=== PATIENT | male | born 1955 | race Caucasian/White ===

== ENCOUNTER 2019-08-04 03:10 | Inpatient (IN) ==
[2019-08-04 04:00] LABS: Basophils # (auto) 0.05 K/uL (0-0.2); Basophils % (auto) 0.5 %; Eosinophils # (auto) 0.32 K/uL (0-0.5); Eosinophils % (auto) 3.1 %; Hematocrit (blood only) 43.9 % (42-52); Hemoglobin 14.9 g/dL (14.0-18.0); Immature Granulocytes # (auto) 0.03 K/uL (0.00-0.02); Immature Granulocytes % (auto) 0.3 %; Lymphocytes # (auto) 2.07 K/uL (1.2-3.4); Lymphocytes % (auto) 19.8 %; Mean Corpuscular Hgb Conc 33.9 g/dL (32-36); Mean Corpuscular Volume 82.5 fL (80-100); Monocytes # (auto) 1.01 K/uL (0.11-0.59); Monocytes % (auto) 9.7 %; Neutrophils # (auto) 6.97 K/uL (1.4-6.5); Neutrophils % (auto) 66.6 %; Platelet Count 207 K/uL (130-400); RDW Coefficient of Variation 14.2 % (11.5-14.5); Red Blood Count 5.32 M/uL (4.7-6.1); White Blood Count 10.45 K/uL (4.8-10.8)
[2019-08-04 04:17] LABS: Alanine Aminotransferase 15 U/L (12-78); Albumin Level 3.2 gm/dl (3.4-5.0); Aspartate Aminotransferase 9 U/L (15-37); BUN Creatinine Ratio 19.9 (10-20); Blood Urea Nitrogen 18 mg/dl (7-18); Calcium 8.6 mg/dl (8.5-10.1); Carbon Dioxide 26 mmol/L (21-32); Chloride 108 mmol/L (98-107); Est GFR (Non-African American) 90.6; Glucose 126 mg/dl (70-99); Potassium 3.9 mmol/L (3.5-5.1); Sodium 142 mmol/L (136-145)
[2019-08-04 04:22] LABS: Albumin Globulin Ratio 0.9 (0.9-2); Alkaline Phosphatase 60 U/L (45-117); Bilirubin,Total 0.4 mg/dl (0.2-1); Globulin 3.6 gm/dl (2.5-4.0); Total Protein 6.8 gm/dl (6.4-8.2); Troponin I 0.018 ng/ml (0-0.045)
[2019-08-04] MEDS: METOPROLOL TARTRATE 25 MG TAB PO SCH ×2 (05:55→21:36)
--- NOTE | 2019-08-04 06:14 | History & Physical Report ---
Date of Service August 04, 2019 Assessment & Plan (1) Seizure: Possible new onset seizure hx traumatic brain injury hx ICH sp surgery hypertension, BP on the lower side A. fib, rate initially high upon arrival at the ER Currently controlled on Eliquis aortic stenosis as per family. Some congestion on CXR Hyperglycemia rule out DM OBS PCU Seizure precautions EEG, MRI of the brain for possible new onset seizure work-up Neurology consult RE possible new onset seizures Lopressor from once to twice daily dosing for sustained rate control Check hemoglobin A1c DVT prophylaxis Eliquis Full code Patient's family requesting updates from providers. Mr.Stephen Carrillo (son-in-law), contact #[phone]. Case discussed with Dr. Antonio (neurologist on-call). He recommends initiation of Keppra for AED prophylaxis. History of Present Illness Chief Complaint: Stiffness, possible seizures Primary Care Provider: NO PCP History obtained from patient, family, and records. Limited history from patient secondary to cognitive impairment. Medical history significant for traumatic brain injury, hx ICH sp surgery, hypertension, A. fib on Eliquis, aortic stenosis. Patient is a resident of [place] visiting family in [place], [place] this week. Patient and will be relocating to [facility] next month. Last November 2018 patient sustained traumatic intracranial hemorrhage requiring 2 operations (November and April) at [facility]. Right-sided weakness and cognitive impairment post injury. During confinement, patient developed rapid A. fib. Was also found to have aortic stenosis on 2D echo. Patient subsequently discharged to rehab on Eliquis for A. fib. Patient was also temporarily on Dilantin seizure prophylaxis until April 2019. Early this morning patient went to the bathroom. Patient's heard a squealing noise and later found patient to be stiff, as if he had seizures. Urinary incontinence noted. No tongue biting noted. Patient was at usual cognitive state as per family. Patient brought to the ER for evaluation. 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, [employer] Allergies Allergy/AdvReac Type Severity Reaction Status Date / Time No Known Allergies Allergy Unverified 08/04/19 03:44 Home Medications Home Medications Medication Instructions Recorded Confirmed Type Bladder Medication 1 dose PO HS 08/04/19 08/04/19 History amlodipine 5 mg PO BID 08/04/19 08/04/19 History apixaban [Eliquis] 5 mg PO BID 08/04/19 08/04/19 History aspirin 81 mg PO DAILY 08/04/19 08/04/19 History carbidopa-levodopa [Sinemet] 1 tab PO DIRECTED 08/04/19 08/04/19 History metoprolol tartrate 12.5 mg PO DAILY 08/04/19 08/04/19 History Past Med/Surg History Medical History Aortic stenosis Atrial fibrillation Hypertension TBI (traumatic brain injury) Family History Other No significant family history Social History Preferred Language: Bengali Communication Ability: Effective Public Housing Manager Required: No Beliefs That Will Affect Care: Pentecostalism Pentecostalism Beliefs: Mennonite marital status: Current Living Situation: Spouse Other Information That Helps Us Care for You: No Feels Safe at Home: Yes Safety Concerns: Feels Safe At This Time Smoking Status: Never smoker Hx Alcohol Use: No Hx Substance Use: No Review of Systems Review of Systems: Could not be reliably obtained Physical Exam Physical Exam: GENERAL: Lethargic, obese, looks younger than stated age, no respiratory distress SKIN: Normal color, warm HEENT: [place] palpebral conjunctivae, no ptosis, dry buccal mucosa, nasal cannula in place NECK : Supple, short neck, no tenderness CHEST : Decreased breath sounds , no tenderness HEART : Irregular, systolic murmur ABDOMEN: Some distention, nontender EXTREMITIES : Minimal LE swelling/tenderness, no other conspicuous deformities noted NEUROLOGIC : Lethargic, follows some commands, no facial asymmetry, chronic RUE paresis Results & Data Vital Signs (Past 12 Hours) Vital Signs Temp Pulse Pulse Resp BP BP Pulse Ox 08/04/19 04:28 108 H 18 101/71 94 08/04/19 03:04 36.6 C 127 H 18 127/103 H 87 L Laboratory Results Laboratory Results WBC 10.45 K/uL (4.8-10.8) 08/04/19 03:49 RBC 5.32 M/uL (4.7-6.1) 08/04/19 03:49 Hgb 14.9 g/dL (14.0-18.0) 08/04/19 03:49 Hct 43.9 % (42-52) 08/04/19 03:49 MCV 82.5 fL (80-100) 08/04/19 03:49 MCH 28.0 pg (25-34) 08/04/19 03:49 MCHC 33.9 g/dL (32-36) 08/04/19 03:49 RDW Std Deviation 43.0 fL (36.4-46.3) 08/04/19 03:49 RDW Coeff of Qing 14.2 % (11.5-14.5) 08/04/19 03:49 Plt Count 207 K/uL (130-400) 08/04/19 03:49 MPV 12.0 fL (7.4-10.4) H 08/04/19 03:49 Immature Gran % (Auto) 0.3 % 08/04/19 03:49 Neut % (Auto) 66.6 % 08/04/19 03:49 Lymph % (Auto) 19.8 % 08/04/19 03:49 Sebastian % (Auto) 9.7 % 08/04/19 03:49 Eos % (Auto) 3.1 % 08/04/19 03:49 Baso % (Auto) 0.5 % 08/04/19 03:49 Immature Gran # (Auto) 0.03 K/uL (0.00-0.02) H 08/04/19 03:49 Neut # (Auto) 6.97 K/uL (1.4-6.5) H 08/04/19 03:49 Lymph # (Auto) 2.07 K/uL (1.2-3.4) 08/04/19 03:49 Sebastian # (Auto) 1.01 K/uL (0.11-0.59) H 08/04/19 03:49 Eos # (Auto) 0.32 K/uL (0-0.5) 08/04/19 03:49 Baso # (Auto) 0.05 K/uL (0-0.2) 08/04/19 03:49 Sodium 142 mmol/L (136-145) 08/04/19 03:49 Potassium 3.9 mmol/L (3.5-5.1) 08/04/19 03:49 Chloride 108 mmol/L (98-107) H 08/04/19 03:49 Carbon Dioxide 26 mmol/L (21-32) 08/04/19 03:49 Anion Gap 8.0 (3-11) 08/04/19 03:49 BUN 18 mg/dl (7-18) 08/04/19 03:49 Creatinine 0.90 mg/dl (0.6-1.4) 08/04/19 03:49 Est Cr Clr Drug Dosing Not Reportable 08/04/19 03:49 Est GFR ( Amer) 105.0 08/04/19 03:49 Est GFR (Non-Af Amer) 90.6 08/04/19 03:49 BUN/Creatinine Ratio 19.9 (10-20) 08/04/19 03:49 Glucose 126 mg/dl (70-99) H 08/04/19 03:49 POC Glucose 123 (70-99) H 08/04/19 03:21 Calcium 8.6 mg/dl (8.5-10.1) 08/04/19 03:49 Total Bilirubin 0.4 mg/dl (0.2-1) 08/04/19 03:49 AST 9 U/L (15-37) L 08/04/19 03:49 ALT 15 U/L (12-78) 08/04/19 03:49 Alkaline Phosphatase 60 U/L (45-117) 08/04/19 03:49 Troponin I 0.018 ng/ml (0-0.045) 08/04/19 03:49 NT-Pro-B Natriuret Pep Cancelled 08/04/19 03:49 Total Protein 6.8 gm/dl (6.4-8.2) 08/04/19 03:49 Albumin 3.2 gm/dl (3.4-5.0) L 08/04/19 03:49 Globulin 3.6 gm/dl (2.5-4.0) 08/04/19 03:49 Albumin/Globulin Ratio 0.9 (0.9-2) 08/04/19 03:[address] head initial read: Status post left craniectomy. Large area of cystic encephalomalacia left frontal lobe with ex vacuo dilatation of the left ventricle. No acute intracranial hemorrhage, midline shift or acute infarct. Low-density in the bilateral periventricular white matter is nonspecific but probably represents small vessel ischemic disease. Chest x-ray as per my interpretation cardiomegaly, congestion EKG as per my interpretation : Rate 140, A. fib, LAD, LAFB, LBBB.
[2019-08-04 06:22] LABS: Magnesium 2.1 mg/dl (1.8-2.4); Thyroid Stimulating Hormone 2.49 uIu/ml (0.300-4.500)
[2019-08-04 06:25] LABS: Estimated Average Glucose 117 mg/dl; Hemoglobin A1C 5.7 % (4.5-5.6)
--- NOTE | 2019-08-04 06:25 | Emergency Department Note ---
Entered by Timoteo Nicholson acting as a scribe for History of Present Illness General Chief complaint: Altered Mental Status Stated complaint: ALTERED MENTAL STATUS Time Seen by Provider: 08/04/19 03:24 Source: family (, son-in-law) History of Present Illness Onset (ago): day(s) (this morning) Location: head Pain Consistency: + constant Quality: + other (AMS) Associated symptoms: + other (Positive for moaning loadly, being stiff, foaming at the mouth, a rigid neck, and slow breathing.) The patient is a 63 year old male who presents to the emergency department with complaints of constant AMS beginning this morning. Per , the patient has a history of a traumatic brain injury and is nonverbal. She states that the patient was acting normally before going to bed. She notes that the patient woke up this morning and used the urinal in bed. She reports that about 20 minutes later, she awoke to the patient moaning loudly. She states that the patient seemed to be stiff and foaming at the mouth at that time. She notes that the patient also had a rigid neck. Per son-in-law, the patients breathing was slow following the episode. Per , the patient has a history of atrial fibrillation but does not have a history of seizures. She reports that the patient takes Eliquis and aspirin. Home Medications Home Medications Medication Instructions Recorded Confirmed Type Bladder Medication 1 dose PO HS 08/04/19 08/04/19 History amlodipine 5 mg PO BID 08/04/19 08/04/19 History apixaban [Eliquis] 5 mg PO BID 08/04/19 08/04/19 History aspirin 81 mg PO DAILY 08/04/19 08/04/19 History carbidopa-levodopa [Sinemet] 1 tab PO DIRECTED 08/04/19 08/04/19 History metoprolol tartrate 12.5 mg PO DAILY 08/04/19 08/04/19 History Allergies Allergy/AdvReac Type Severity Reaction Status Date / Time No Known Allergies Allergy Unverified 08/04/19 03:44 Past Med/Surg History Medical History Aortic stenosis Atrial fibrillation Hypertension TBI (traumatic brain injury) Family History Other No significant family history Social History Preferred Language: [place] Communication Ability: Effective Armature Winder Required: No Beliefs That Will Affect Care: Rastafari Rastafari Beliefs: Mennonite marital status: Current Living Situation: Spouse Other Information That Helps Us Care for You: No Feels Safe at Home: Yes Safety Concerns: Feels Safe At This Time Smoking Status: Never smoker Hx Alcohol Use: No Hx Substance Use: No Review of Systems See HPI for pertinent positives & negatives. and A total of 10 systems reviewed and were otherwise negative Physical Exam Vital Signs Vital Signs - 24 hr 08/04/19 17:00 08/04/19 20:00 08/05/19 00:00 Temperature 36.8 C 36.6 C 36.5 C Pulse Rate 102 H 79 76 Pulse Rate from SpO2 Sensor 81 76 Respiratory Rate 27 H 15 15 Respiratory Effort / Characteristics Respiratory Depth Respiratory Pattern Blood Pressure 145/92 H 124/92 120/86 Blood Pressure Mean 109 102 97 Pulse Oximetry 95 98 98 Oxygen Delivery Method Room Air Nasal Cannula Oxymask Oxygen Flow Rate 2 2 08/05/19 04:00 08/05/19 05:00 08/05/19 08:00 Temperature 36.7 C Pulse Rate 88 78 Pulse Rate from SpO2 Sensor 89 73 Respiratory Rate 17 16 Respiratory Effort / Characteristics Non-Labored Spontaneous Respiratory Depth Normal Respiratory Pattern Regular Blood Pressure 114/77 116/79 Blood Pressure Mean 89 91 Pulse Oximetry 97 99 Oxygen Delivery Method Oxymask Oxymask Room Air Oxygen Flow Rate 2 2 08/05/19 08:29 Temperature 36.4 C L Pulse Rate 96 H Pulse Rate from SpO2 Sensor Respiratory Rate 24 Respiratory Effort / Characteristics Respiratory Depth Respiratory Pattern Blood Pressure 114/83 Blood Pressure Mean 93 Pulse Oximetry 98 Oxygen Delivery Method Room Air Oxygen Flow Rate General: Patient is alert but nonverbal at baseline neurological status. HEENT: Head - normocephalic and atraumatic Pupils are equal, round, and reactive to light. Extraocular eye muscles are intact, and sclera are anicteric. Nose - moist nasal mucosa without discharge. Mouth - moist buccal mucosa. Oropharynx is nonerythematous and there is no tonsillar exudate or edema noted. Neck: Supple; no JVD, nuchal rigidity, cervical lymphadenopathy, or auscultated bruits. Heart: Regular rhythm and tachycardic. There is a normal S1 and S2 with no murmurs, clicks, or gallops appreciated. Lungs: Clear to auscultation bilaterally with no wheezes, rales, or rhonchi. Abdomen: Soft, completely nontender, nondistended, with good bowel sounds. There are no palpable pulsatile masses or hepatosplenomegaly. There is no guarding, rigidity, or rebound noted. Extremities: No evidence of cyanosis, clubbing, or edema. There are easily palpable peripheral pulses. Skin: warm and dry with good turgor and no rashes. Neuro: The patient is at his baseline mental status. He is nonverbal. He will follow some commands. Course 0334: The patient was evaluated in room B9. A complete history and physical examination were performed. Nursing notes and previous electronic medical records were reviewed. labs were drawn as above. Seizure precautions were taken. The patient was observed on the radiographer cardiac catheterization and pulse oximeter. The patient will go for CT scan of the brain. 0522: I spent a great deal of time talking to the patient's family as they are self-pay and requested that we perform only minimal testing. I voiced my concern for this patient as it seems that he suffered a seizure and could suffer another seizure. I felt he would require monitoring for further seizure activity, EEG evaluation and neurology consult. The patient's family is agreeable to the patient being admitted. 0524: Upon reevaluation, the patient is stable. I discussed the findings and the treatment plan with the patient's family. They express agreement and understanding. I spoke with Dr. Vaughan of the [facility]. The patient will be evaluated for further management. Reevaluation(s) Reevaluation #1: I reviewed the patient's case with Dr. Vaughan - [facility]. He will evaluate the patient for further management. Time: 05:24 Administered Medications Amlodipine Besylate (Norvasc) 5 mg PO QAM [facility] Stop: 09/04/19 08:59 Last Admin: 08/05/19 08:23 Dose: 5 mg Documented by: [id number] Apixaban (Eliquis) 5 mg PO BID [facility] Stop: 09/03/19 08:59 Last Admin: 08/05/19 08:24 Dose: 5 mg Documented by: [id number] Admin: 08/04/19 21:36 Dose: 5 mg Documented by: [id number] Admin: 08/04/19 08:16 Dose: 5 mg Documented by: [id number] Aspirin (Ecotrin Ectab) 81 mg PO DAILY [facility] Stop: 09/03/19 08:59 Last Admin: 08/05/19 08:24 Dose: 81 mg Documented by: [id number] Admin: 08/04/19 08:17 Dose: 81 mg Documented by: [id number] Gadobutrol (Gadavist 65ml) 11.5 ml IV ONCE PRN PRN Reason: Interaction Checking Stop: 08/08/19 16:20 Last Admin: 08/04/19 16:22 Dose: 11.5 ml Documented by: [id number] Levetiracetam (Keppra) 500 mg PO BID [facility] Stop: 09/03/19 20:59 Last Admin: 08/05/19 08:23 Dose: 500 mg Documented by: [id number] Admin: 08/04/19 21:36 Dose: 500 mg Documented by: [id number] Metoprolol Tartrate (Lopressor) 12.5 mg PO BID [facility] Stop: 09/03/19 05:29 Last Admin: 08/05/19 08:23 Dose: 12.5 mg Documented by: [id number] Admin: 08/04/19 21:36 Dose: 12.5 mg Documented by: [id number] Admin: 08/04/19 05:55 Dose: Not Given Documented by: [id number] Discontinued Medications Amlodipine Besylate (Norvasc) 5 mg PO BID [facility] Stop: 09/03/19 08:59 Last Admin: 08/04/19 08:16 Dose: 5 mg Documented by: [id number] Levetiracetam 1,000 mg/ (Dextrose) 110 mls @ 440 mls/hr IV NOW STA Stop: 08/04/19 06:35 Last Infusion: 08/04/19 09:56 Dose: 0 mls/hr Documented by: [id number] Admin: 08/04/19 09:16 Dose: 440 mls/hr Documented by: [id number] Metoprolol Tartrate (Lopressor) 12.5 mg PO NOW STA Stop: 08/04/19 17:40 Last Admin: 08/04/19 18:27 Dose: 12.5 mg Documented by: [id number] Potassium Chloride (Klor-Con M20) 20 meq PO NOW STA Stop: 08/04/19 07:35 Last Admin: 08/04/19 08:20 Dose: 20 meq Documented by: [id number] Medical Decision Making Differential Diagnosis Differential diagnoses include: seizure, cardiac dysrhythmia, respiratory distress, and mucus plugging. Medical Records Attestation: I reviewed the patient's medical records. Home Medications Current Medication List: was personally reviewed by me Laboratory Data Attestation: I reviewed the patient's lab results. Result diagrams: 08/05/19 03:57 08/05/19 03:57 Lab Results 08/04/19 08/04/19 08/04/19 Range/Units 03:21 03:44 03:49 WBC 10.45 (4.8-10.8) K/uL RBC 5.32 (4.7-6.1) M/uL Hgb 14.9 (14.0-18.0) g/dL Hct 43.9 (42-52) % MCV 82.5 (80-100) fL MCH 28.0 (25-34) pg MCHC 33.9 (32-36) g/dL RDW Std Deviation 43.0 (36.4-46.3) fL RDW Coeff of Qing 14.2 (11.5-14.5) % Plt Count 207 (130-400) K/uL MPV 12.0 H (7.4-10.4) fL Immature Gran % (Auto) 0.3 % Neut % (Auto) 66.6 % Lymph % (Auto) 19.8 % [place] % (Auto) 9.7 % Eos % (Auto) 3.1 % Baso % (Auto) 0.5 % Immature Gran # (Auto) 0.03 H (0.00-0.02) K/uL Neut # (Auto) 6.97 H (1.4-6.5) K/uL Lymph # (Auto) 2.07 (1.2-3.4) K/uL [place] # (Auto) 1.01 H (0.11-0.59) K/uL Eos # (Auto) 0.32 (0-0.5) K/uL Baso # (Auto) 0.05 (0-0.2) K/uL Sodium (136-145) mmol/L Potassium (3.5-5.1) mmol/L Chloride (98-107) mmol/L Carbon Dioxide (21-32) mmol/L Anion Gap (3-11) BUN (7-18) mg/dl Creatinine (0.6-1.4) mg/dl Est Cr Clr Drug Dosing Est GFR ( Amer) Est GFR (Non-Af Amer) BUN/Creatinine Ratio (10-20) Glucose (70-99) mg/dl POC Glucose 123 H (70-99) Estimat Average Glucose 117 mg/dl Hemoglobin A1c 5.7 H (4.5-5.6) % Calcium (8.5-10.1) mg/dl Magnesium (1.8-2.4) mg/dl Total Bilirubin (0.2-1) mg/dl AST (15-37) U/L ALT (12-78) U/L Alkaline Phosphatase (45-117) U/L Troponin I (0-0.045) ng/ml NT-Pro-B Natriuret Pep (0-900) pg/ml Total Protein (6.4-8.2) gm/dl Albumin (3.4-5.0) gm/dl Globulin (2.5-4.0) gm/dl Albumin/Globulin Ratio (0.9-2) TSH (0.300-4.500) uIu/ml Urine Color Urine Appearance (Clear) Urine pH (4.5-7.5) Ur Specific [place] (1.000-1.030) Urine Protein (Negative) Urine Glucose (UA) (Negative) Urine Ketones (Negative) Urine Blood (Negative) Urine Nitrite (Negative) Urine Bilirubin (Negative) Urine Urobilinogen (Negative) Ur Leukocyte Esterase (Negative) Nasal Screen MRSA (PCR) (Negative) 08/04/19 08/04/19 08/04/19 Range/Units 03:49 03:49 03:49 WBC (4.8-10.8) K/uL RBC (4.7-6.1) M/uL Hgb (14.0-18.0) g/dL Hct (42-52) % MCV (80-100) fL MCH (25-34) pg MCHC (32-36) g/dL RDW Std Deviation (36.4-46.3) fL RDW Coeff of Qing (11.5-14.5) % Plt Count (130-400) K/uL MPV (7.4-10.4) fL Immature Gran % (Auto) % Neut % (Auto) % Lymph % (Auto) % [place] % (Auto) % Eos % (Auto) % Baso % (Auto) % Immature Gran # (Auto) (0.00-0.02) K/uL Neut # (Auto) (1.4-6.5) K/uL Lymph # (Auto) (1.2-3.4) K/uL [place] # (Auto) (0.11-0.59) K/uL Eos # (Auto) (0-0.5) K/uL Baso # (Auto) (0-0.2) K/uL Sodium 142 (136-145) mmol/L Potassium 3.9 (3.5-5.1) mmol/L Chloride 108 H (98-107) mmol/L Carbon Dioxide 26 (21-32) mmol/L Anion Gap 8.0 (3-11) BUN 18 (7-18) mg/dl Creatinine 0.90 (0.6-1.4) mg/dl Est Cr Clr Drug Dosing Not Reportable Est GFR ( Amer) 105.0 Est GFR (Non-Af Amer) 90.6 BUN/Creatinine Ratio 19.9 (10-20) Glucose 126 H (70-99) mg/dl POC Glucose (70-99) Estimat Average Glucose mg/dl Hemoglobin A1c (4.5-5.6) % Calcium 8.6 (8.5-10.1) mg/dl Magnesium 2.1 (1.8-2.4) mg/dl Total Bilirubin 0.4 (0.2-1) mg/dl AST 9 L (15-37) U/L ALT 15 (12-78) U/L Alkaline Phosphatase 60 (45-117) U/L Troponin I 0.018 (0-0.045) ng/ml NT-Pro-B Natriuret Pep 2987 H Cancelled (0-900) pg/ml Total Protein 6.8 (6.4-8.2) gm/dl Albumin 3.2 L (3.4-5.0) gm/dl Globulin 3.6 (2.5-4.0) gm/dl Albumin/Globulin Ratio 0.9 (0.9-2) TSH 2.490 (0.300-4.500) uIu/ml Urine Color Urine Appearance (Clear) Urine pH (4.5-7.5) Ur Specific [place] (1.000-1.030) Urine Protein (Negative) Urine Glucose (UA) (Negative) Urine Ketones (Negative) Urine Blood (Negative) Urine Nitrite (Negative) Urine Bilirubin (Negative) Urine Urobilinogen (Negative) Ur Leukocyte Esterase (Negative) Nasal Screen MRSA (PCR) (Negative) 08/04/19 08/04/19 08/05/19 Range/Units 07:49 12:00 03:57 WBC 11.16 H (4.8-10.8) K/uL RBC 5.00 (4.7-6.1) M/uL Hgb 14.3 (14.0-18.0) g/dL Hct 42.9 (42-52) % MCV 85.8 (80-100) fL MCH 28.6 (25-34) pg MCHC 33.3 (32-36) g/dL RDW Std Deviation 44.5 (36.4-46.3) fL RDW Coeff of Qing 14.3 (11.5-14.5) % Plt Count 191 (130-400) K/uL MPV 12.1 H (7.4-10.4) fL Immature Gran % (Auto) 0.4 % Neut % (Auto) 57.5 % Lymph % (Auto) 27.6 % [place] % (Auto) 10.0 % Eos % (Auto) 4.1 % Baso % (Auto) 0.4 % Immature Gran # (Auto) 0.04 H (0.00-0.02) K/uL Neut # (Auto) 6.41 (1.4-6.5) K/uL Lymph # (Auto) 3.08 (1.2-3.4) K/uL [place] # (Auto) 1.12 H (0.11-0.59) K/uL Eos # (Auto) 0.46 (0-0.5) K/uL Baso # (Auto) 0.05 (0-0.2) K/uL Sodium (136-145) mmol/L Potassium (3.5-5.1) mmol/L Chloride (98-107) mmol/L Carbon Dioxide (21-32) mmol/L Anion Gap (3-11) BUN (7-18) mg/dl Creatinine (0.6-1.4) mg/dl Est Cr Clr Drug Dosing Est GFR ( Amer) Est GFR (Non-Af Amer) BUN/Creatinine Ratio (10-20) Glucose (70-99) mg/dl POC Glucose (70-99) Estimat Average Glucose mg/dl Hemoglobin A1c (4.5-5.6) % Calcium (8.5-10.1) mg/dl Magnesium (1.8-2.4) mg/dl Total Bilirubin (0.2-1) mg/dl AST (15-37) U/L ALT (12-78) U/L Alkaline Phosphatase (45-117) U/L Troponin I (0-0.045) ng/ml NT-Pro-B Natriuret Pep (0-900) pg/ml Total Protein (6.4-8.2) gm/dl Albumin (3.4-5.0) gm/dl Globulin (2.5-4.0) gm/dl Albumin/Globulin Ratio (0.9-2) TSH (0.300-4.500) uIu/ml Urine Color Yellow Urine Appearance Clear (Clear) Urine pH 7.0 (4.5-7.5) Ur Specific [place] 1.021 (1.000-1.030) Urine Protein Negative (Negative) Urine Glucose (UA) Negative (Negative) Urine Ketones Negative (Negative) Urine Blood Negative (Negative) Urine Nitrite Negative (Negative) Urine Bilirubin Negative (Negative) Urine Urobilinogen Negative (Negative) Ur Leukocyte Esterase Negative (Negative) Nasal Screen MRSA (PCR) Negative (Negative) 08/05/19 Range/Units 03:57 WBC (4.8-10.8) K/uL RBC (4.7-6.1) M/uL Hgb (14.0-18.0) g/dL Hct (42-52) % MCV (80-100) fL MCH (25-34) pg MCHC (32-36) g/dL RDW Std Deviation (36.4-46.3) fL RDW Coeff of Qing (11.5-14.5) % Plt Count (130-400) K/uL MPV (7.4-10.4) fL Immature Gran % (Auto) % Neut % (Auto) % Lymph % (Auto) % [place] % (Auto) % Eos % (Auto) % Baso % (Auto) % Immature Gran # (Auto) (0.00-0.02) K/uL Neut # (Auto) (1.4-6.5) K/uL Lymph # (Auto) (1.2-3.4) K/uL [place] # (Auto) (0.11-0.59) K/uL Eos # (Auto) (0-0.5) K/uL Baso # (Auto) (0-0.2) K/uL Sodium 140 (136-145) mmol/L Potassium 3.9 (3.5-5.1) mmol/L Chloride 107 (98-107) mmol/L Carbon Dioxide 28 (21-32) mmol/L Anion Gap 5.0 (3-11) BUN 13 (7-18) mg/dl Creatinine 0.60 D (0.6-1.4) mg/dl Est Cr Clr Drug Dosing 162.5 Est GFR ( Amer) 124.0 Est GFR (Non-Af Amer) 107.0 BUN/Creatinine Ratio 21.6 H (10-20) Glucose 96 (70-99) mg/dl POC Glucose (70-99) Estimat Average Glucose mg/dl Hemoglobin A1c (4.5-5.6) % Calcium 8.6 (8.5-10.1) mg/dl Magnesium 2.1 (1.8-2.4) mg/dl Total Bilirubin (0.2-1) mg/dl AST (15-37) U/L ALT (12-78) U/L Alkaline Phosphatase (45-117) U/L Troponin I (0-0.045) ng/ml NT-Pro-B Natriuret Pep (0-900) pg/ml Total Protein (6.4-8.2) gm/dl Albumin (3.4-5.0) gm/dl Globulin (2.5-4.0) gm/dl Albumin/Globulin Ratio (0.9-2) TSH (0.300-4.500) uIu/ml Urine Color Urine Appearance (Clear) Urine pH (4.5-7.5) Ur Specific [place] (1.000-1.030) Urine Protein (Negative) Urine Glucose (UA) (Negative) Urine Ketones (Negative) Urine Blood (Negative) Urine Nitrite (Negative) Urine Bilirubin (Negative) Urine Urobilinogen (Negative) Ur Leukocyte Esterase (Negative) Nasal Screen MRSA (PCR) (Negative) Imaging Data Radiologist's Impression: Radiology results as stated below per my review and the radiologist's interpretation: CT HEAD: Status post left craniectomy. Large area of cystic encephalomalacia in the left frontal lobe with ex vacuo dilation of the left ventricle. No acute intracranial hemorrhage, midline shift, or acute infarct. Low-density in the bilateral periventricular white matter is nonspecific but probably represents chronic small vessel ischemic disease. Bilateral ethmoid and maxillary sinus disease. Radiologist: Marlee Scott MD. ECG Data Attestation: I personally reviewed and interpreted this ECG as follows: Indication: altered mental status Rate (beats per minute): 142 Rhythm: atrial fibrillation (with RVR) Findings: + LBBB; no PAC and no PVC Blood Pressure Blood Pressure Findings: Normal blood pressure Blood Pressure Disposition: did not require urgent referral MDM Narrative The patient is a 63 year old male who presents to the emergency department with complaints of constant AMS beginning this morning. The patient's gives a very detailed description of the event that occurred overnight and seems consistent with a seizure followed by a postictal phase. The patient has a history of a traumatic brain injury and had previously been on Dilantin. That medication was stopped a couple of months ago. The patient's mental status is back at baseline at this time. The patient's describes a fairly concerning episode that seems consistent with a seizure. Seizure precautions were taken here in the emergency department. CT scan of the brain showed no new findings. I discussed the case with the hospitalist and they will evaluate the patient for further care. The patient had no further seizure activity while here in the emergency department. The patient has a history of A. fib and takes Eliquis. Upon presentation to the ER, the patient had A. fib with RVR. The patient was also hypertensive. His heart rate has slowed on its own and the blood pressure has come down to normal. There is no evidence of cardiac ischemia. Impression & Plan Seizure, Atrial fibrillation with RVR Discharge Plan Visit Data *Final* Discharge Date/Time: 08/04/19 06:37 Chief Complaint: Altered Mental Status Stated Complaint: ALTERED MENTAL STATUS ED Provider: Reanna Becker Discharge Problem: Seizure, Atrial fibrillation with RVR Patient Disposition: Admitted As Inpatient Discharge Instructions Interventions: ED Discharge Assessment Last Done: 08/04/19 06:37 The scribe's documentation has been prepared under my direction and personally reviewed by me in its entirety. I confirm that the note above accurately reflects all work, treatment, procedures, and medical decision making performed by me.
--- NOTE | 2019-08-04 06:26 | XRay Report ---
XR chest 1V portable HISTORY: 63 years-old Male tachycardia acute tachycardia COMPARISON: None available TECHNIQUE: Portable AP view of the chest FINDINGS: Cardiac silhouette is moderately enlarged. Pulmonary vascular congestion without pneumothorax, large pleural effusion or lobar airspace consolidation. Blunting of the costophrenic angles may be secondar y to trace effusions versus atelectasis. Degenerative changes of the shoulders and spine. IMPRESSION: Cardiomegaly with pulmonary vascular congestion. The above report was generated using voice recognition software. It may contain grammatical, syntax o r spelling errors. Electronically signed by: Guicho Mitchell M.D. 08/04/2019 6:25 AM
--- NOTE | 2019-08-04 06:30 | CT Scan Report ---
CT head/brain wo con CT DOSE: 614.27 mGy.cm HISTORY: Mental status change altered ms/seizure TECHNIQUE: Multiaxial CT images of the head were performed without the use of intravenous contrast. A dose lowering technique was utilized adhering to the principles of ALARA. Comparison: None. Findings: Large left frontal craniotomy flap. Slight distraction of Lat near the inferior left tempor al component. Postoperative encephalomalacia involving components of the left frontoparietal region. There is sligh t compensatory prominence of the left lateral ventricle. There is no evidence for acute intracranial hemorrhage. There is no midline shift at this time. Impression: 1. Postoperative changes including a large geographic left craniotomy. Craniotomy flap is slightly di stracted. 2. Left frontal/parietal postprocedural encephalomalacia. 3. No well-defined acute process within the limitations of an absence of prior studies. The above report was generated using voice recognition software. It may contain grammatical, syntax or spelling errors. Electronically signed by: Charlie Auguste M.D. 08/04/2019 6:29 AM
[2019-08-04] MEDS ORDERED: LORazepam 1 MG/2 ML VIAL IV PRN (07:34)
[2019-08-04] MEDS ORDERED: POTASSIUM CHLORIDE 20 MEQ TABCR PO STA (07:34)
[2019-08-04] MEDS ORDERED: PROMETHAZINE HCL 12.5 MG in SODIUM CHLORIDE 0.9% 50 ML IV PRN (07:34)
[2019-08-04] MEDS ORDERED: ACETAMINOPHEN 325 MG TAB PO PRN (07:34)
[2019-08-04] MEDS ORDERED: CARBIDOPA/LEVODOPA 25/100MG TAB PO SCH (07:34)
[2019-08-04] MEDS ORDERED: OXYCODONE HCL IR 5 MG TAB (IMMEDIATE RELEASE) PO PRN (07:34)
[2019-08-04] MEDS: APIXABAN 5 MG TABLET PO SCH ×2 (08:16→21:36)
[2019-08-04] MEDS: ASPIRIN 81 MG ECTAB PO SCH (08:17)
--- NOTE | 2019-08-04 08:20 | Hospitalist Progress Note ---
Date of Service August 04, 2019 Assessment & Plan (1) Seizure: New onset seizure Hx of traumatic brain injury hx of ICH s/p surgery Discussed with neurologist overnight, MRI of brain and EEG recommended, loaded with 1g of Keppra MRI -showed old post op and old posttraumatic changes, recommend to follow-up CT in 24 hours to exclude possibility of a small focus of hemorrhage, no significant mass-effect, no acute infarct Neurology further evaluated the pt at the bedside - stopped Sinement, obtain Keppra level AM, cont. Keppra 500 BID Seizure precautions Hypertension Pt hypotensive today, will hold evening dose of amlodipine A. fib, rate not adequately controlled at home on metoprolol 12.5 mg daily, switched to BID on admission -will give an additional dose of 12.5 mg now, and then again in the evening -likely will switch to 25 mg bid on discharge if persistently in higher HR -on Eliquis Hx of aortic stenosis as per family -some congestion on CXR on admission -will cont. to closely monitor vol. status Hyperglycemia - hemoglobin A1c 5.7% - acceptable glucose levels at this time - will cont. to closely monitor Dispo: PCU, need to clin. monitor for next 1-2 days per neuro DVT prophylaxis:Eliquis Code: Full code Patient's family requesting updates from providers. Mr.Stephen Carrillo (son-in-law), contact #[phone]. - Contacted son-in-law this evening, but did not reach him, left a message. Subjective Patient is laying in bed, appears comfortable, in no acute distress. He is able to answer yes and no questions and denies any chest pain, abdominal pain, fevers, chills, shortness of breath or nausea he was on nasal cannula, that was recently discontinued. He is closely monitored at PCU. Review of Systems Review of Systems: Unobtainable due to mental health condition Full review of systems unable to obtain, however patient denies any pain, discomfort, fever or chills, denies any chest pain, abdominal pain, shortness of breath Physical Exam Physical Exam: GENERAL: obese male, looks younger than stated age,lying in bed, in NAD HEENT: EOMI, PERRL, moist mucous membranes NECK : Supple, short neck, no lad CHEST : somewhat course breath sounds b/l HEART : Irregular, soft systolic murmur at rusb ABDOMEN: + bowel sounds, soft, obese, nontender, mild distention, no guarding EXTREMITIES : no LE edema b/l NEUROLOGIC : alert, answers yes/no questions appropriately, follows some commands, chronic RUE paresis SKIN: dry, warm, no rashes or lesions Results & Data Vital Signs (Past 12 Hours) Vital Signs Temp Pulse Pulse Resp BP BP Pulse Ox 08/04/19 07:03 36.5 C 90 15 93/69 L 08/04/19 06:22 91 H 18 102/82 95 08/04/19 04:28 108 H 18 101/71 94 08/04/19 03:04 36.6 C 127 H 18 127/103 H 87 L EEG (08/04/2019) Interpretation EEG is abnormal in a generalized fashion with an absence of a sustained background alpha rhythm and with excessive amounts of theta delta activity most prominent over the left frontal and central regions consistent with the known structural lesion in that area but is not associated with any clear-cut potentially epileptogenic patterns. The absence of the latter however does not exclude the clinical diagnosis of a seizure disorder Clinical Correlation This EEG reveals evidence for mild generalized slowing consistent with a nonspecific encephalopathy, focal slowing in the left hemisphere consistent with a focal area of neuronal dysfunction and certainly consistent with the clinical history of a subdural hematoma and encephalomalacia post evacuation of the former but does not reveal evidence for definitive electroencephalographic seizure activity. The absence of this however does not exclude a seizure disorder and clinical correlation is required David Antonio MD Brain MRI (08/04/2019) IMPRESSION: 1. An 11 mm focus of increased T1 signal within the peripheral left frontal lobe. This is nonspecific but favors old postoperative change or cortical laminar necrosis. Follow-up head CT in 24 hours recommended to exclude the less likely possibility of a small focus of hemorrhage. 2. Extensive cystic/encephalomalacic change with areas of increased T2 signal involving the majority of the left frontal lobe which favors old postoperative and old posttraumatic changes. No significant mass effect or enhancement to suggest underlying vasogenic edema or mass. 3. No acute infarct. Laboratory Results 08/04/19 08/04/19 08/04/19 Range/Units 03:49 03:49 03:49 WBC (4.8-10.8) K/uL RBC (4.7-6.1) M/uL Hgb (14.0-18.0) g/dL Hct (42-52) % MCV (80-100) fL MCH (25-34) pg MCHC (32-36) g/dL RDW Std Deviation (36.4-46.3) fL RDW Coeff of Qing (11.5-14.5) % Plt Count (130-400) K/uL MPV (7.4-10.4) fL Immature Gran % (Auto) % Neut % (Auto) % Lymph % (Auto) % Highland % (Auto) % Eos % (Auto) % Baso % (Auto) % Immature Gran # (Auto) (0.00-0.02) K/uL Neut # (Auto) (1.4-6.5) K/uL Lymph # (Auto) (1.2-3.4) K/uL Highland # (Auto) (0.11-0.59) K/uL Eos # (Auto) (0-0.5) K/uL Baso # (Auto) (0-0.2) K/uL Sodium 142 (136-145) mmol/L Potassium 3.9 (3.5-5.1) mmol/L Chloride 108 H (98-107) mmol/L Carbon Dioxide 26 (21-32) mmol/L Anion Gap 8.0 (3-11) BUN 18 (7-18) mg/dl Creatinine 0.90 (0.6-1.4) mg/dl Est Cr Clr Drug Dosing Not Reportable Est GFR ( Amer) 105.0 Est GFR (Non-Af Amer) 90.6 BUN/Creatinine Ratio 19.9 (10-20) Glucose 126 H (70-99) mg/dl POC Glucose (70-99) Estimat Average Glucose mg/dl Hemoglobin A1c (4.5-5.6) % Calcium 8.6 (8.5-10.1) mg/dl Magnesium 2.1 (1.8-2.4) mg/dl Total Bilirubin 0.4 (0.2-1) mg/dl AST 9 L (15-37) U/L ALT 15 (12-78) U/L Alkaline Phosphatase 60 (45-117) U/L Troponin I 0.018 (0-0.045) ng/ml NT-Pro-B Natriuret Pep Cancelled 2987 H (0-900) pg/ml Total Protein 6.8 (6.4-8.2) gm/dl Albumin 3.2 L (3.4-5.0) gm/dl Globulin 3.6 (2.5-4.0) gm/dl Albumin/Globulin Ratio 0.9 (0.9-2) TSH 2.490 (0.300-4.500) uIu/ml 08/04/19 08/04/19 08/04/19 Range/Units 03:49 03:44 03:21 WBC 10.45 (4.8-10.8) K/uL RBC 5.32 (4.7-6.1) M/uL Hgb 14.9 (14.0-18.0) g/dL Hct 43.9 (42-52) % MCV 82.5 (80-100) fL MCH 28.0 (25-34) pg MCHC 33.9 (32-36) g/dL RDW Std Deviation 43.0 (36.4-46.3) fL RDW Coeff of Qing 14.2 (11.5-14.5) % Plt Count 207 (130-400) K/uL MPV 12.0 H (7.4-10.4) fL Immature Gran % (Auto) 0.3 % Neut % (Auto) 66.6 % Lymph % (Auto) 19.8 % Highland % (Auto) 9.7 % Eos % (Auto) 3.1 % Baso % (Auto) 0.5 % Immature Gran # (Auto) 0.03 H (0.00-0.02) K/uL Neut # (Auto) 6.97 H (1.4-6.5) K/uL Lymph # (Auto) 2.07 (1.2-3.4) K/uL Highland # (Auto) 1.01 H (0.11-0.59) K/uL Eos # (Auto) 0.32 (0-0.5) K/uL Baso # (Auto) 0.05 (0-0.2) K/uL Sodium (136-145) mmol/L Potassium (3.5-5.1) mmol/L Chloride (98-107) mmol/L Carbon Dioxide (21-32) mmol/L Anion Gap (3-11) BUN (7-18) mg/dl Creatinine (0.6-1.4) mg/dl Est Cr Clr Drug Dosing Est GFR ( Amer) Est GFR (Non-Af Amer) BUN/Creatinine Ratio (10-20) Glucose (70-99) mg/dl POC Glucose 123 H (70-99) Estimat Average Glucose 117 mg/dl Hemoglobin A1c 5.7 H (4.5-5.6) % Calcium (8.5-10.1) mg/dl Magnesium (1.8-2.4) mg/dl Total Bilirubin (0.2-1) mg/dl AST (15-37) U/L ALT (12-78) U/L Alkaline Phosphatase (45-117) U/L Troponin I (0-0.045) ng/ml NT-Pro-B Natriuret Pep (0-900) pg/ml Total Protein (6.4-8.2) gm/dl Albumin (3.4-5.0) gm/dl Globulin (2.5-4.0) gm/dl Albumin/Globulin Ratio (0.9-2) TSH (0.300-4.500) uIu/ml Medications Administered Current Inpatient Medications Acetaminophen (Tylenol) 650 mg PO Q4H PRN PRN Reason: Pain or Fever Stop: 09/03/19 07:33 Amlodipine Besylate (Norvasc) 5 mg PO BID [facility] Stop: 09/03/19 08:59 Apixaban (Eliquis) 5 mg PO BID [facility] Stop: 09/03/19 08:59 Aspirin (Ecotrin Ectab) 81 mg PO DAILY [facility] Stop: 09/03/19 08:59 Carbidopa/Levodopa (Sinemet 25/100 Mg) 1 tab PO DIRECTED [facility] Stop: 09/03/19 07:33 Lorazepam (Ativan) 1 mg in 2 mls @ 0.5 mls/min IV Q10M PRN PRN Reason: seizures Stop: 09/03/19 07:33 Promethazine HCl 12.5 mg/ (Sodium Chloride) 50.5 mls @ 202 mls/hr IV Q6H PRN PRN Reason: Nausea And Vomiting Stop: 09/03/19 07:33 Levetiracetam (Keppra) 500 mg PO BID [facility] Stop: 09/03/19 20:59 Metoprolol Tartrate (Lopressor) 12.5 mg PO BID [facility] Stop: 09/03/19 05:29 Last Admin: 08/04/19 05:55 Dose: Not Given Documented by: Oxycodone HCl (Roxicodone Immediate Rel) 5 mg PO Q4H PRN PRN Reason: Pain Stop: 08/18/19 07:33
[2019-08-04] MEDS ORDERED: AMLODIPINE BESYLATE 5 MG TAB PO SCH (09:00)
[2019-08-04 12:13] LABS: Appearance Urine Clear (Clear); Bilirubin Urine Negative (Negative); Blood Urine Negative (Negative); Color Urine Yellow; Glucose Urine UA Negative (Negative); Ketones Urine Negative (Negative); Leukocyte Esterase Urine Negative (Negative); Nitrite Urine Negative (Negative); Protein Urine Negative (Negative); Specific Gravity Urine 1.021 (1.000-1.030); Urobilinogen Urine Negative (Negative)
--- NOTE | 2019-08-04 13:51 | Neurology Consultation ---
Date of Consultation August 04, 2019 Assessment & Plan (1) Seizure: 1. Keppra 1g in ED. continue Keppra 500 mg BID- may need to increase at some point 2. Keppra level tomorrow 3. MRI pending 4. medical management per ICU team 5. EEG- left slowing no seizure focus 6. son in law - [phone] appreciates updates when available 7. will be moving to [place] in approx 2 weeks- will need PCP and neurology for continuation of care 8. Sinemet was started for mobility issues and brain stimulation it has not been given here in the hospital - stopped do not restart 9. PT/OT for discharge needs Supervising Physician Co-Signing Physician Notes I have seen and discussed above patient with Dr David Antonio, neurology I reviewed the above notations, the initial history and physical, the patient imaging studies which thus far consist only of a CT scan and unfortunately patient at present is in the MRI scanner or about to enter and has not had this study completed This is a 63-year-old man who in November of this year had a posttraumatic probable subdural/subarachnoid hemorrhage required neurosurgical intervention and postoperatively had a significant left hemispheric deficit with a aphasia and right hemiparesis and subsequently developed a encephalomalacia which by CT scan is associated with significant volume loss and retraction of the anterior horn of the left lateral ventricle and clinically by the examination performed by Sara Whitley PA-C, the significant speech issue consistent with an anterior aphasia and a modest right hemiparesis. Last evening he had an unwitnessed event that was undoubtedly a seizure and was brought to the emergency room, assessed and I discussed the case with the hospitalist, recommended that we have an EEG done, an MRI done that he be started on Keppra. All of the following with the exception MRI have been completed and we are awaiting the results Is been no recurrent seizure activity and the EEG shows only a slow wave focus over the left hemisphere maximum in the frontocentral region consistent with a structural lesion but demonstrating no clear-cut potentially epileptogenic activity. The absence of the latter however in this clinical setting certainly does not exclude a seizure and at this point with the delayed onset of seizure activity I think we are quite justified maintaining him on anticonvulsants and hopefully the Keppra will not be associated with excessive sedation or irritability The family is apparently moving into the [place] area and his medical care may well be rendered there by a local physician and neurologic care of may eventually reside in [place] or within [facility] depending on their choice but for now he needs to be observed, we need to review the MRI, we need to check how well he is tolerating the Keppra and neurology at [facility] will follow him up after discharge once things are settled a bit more and we have a chance to observe him for another day or 2 I will check the MRI tonight my home computer and will attempt to see him but may have to delay an examination until tomorrow David Antonio MD History of Present Illness Reason for Consultation: possible seizure Requesting Physician: Seferino oCyle MD Attending Physician: Seferino Coyle MD History of Present Illness Justin gomez is a 63 year old male who presents to [facility] ED with change in MS. He has a traumatic brain injury and is nonverbal. She states that the patient was acting normally before going to bed. She notes that the patient woke up this morning and used the urinal in bed. She reports that about 20 minutes later, she awoke to the patient moaning loudly. She states that the patient seemed to be stiff and foaming at the mouth at that time. She notes that the patient also had a rigid neck. He was breathing was slow following the episode. He also has a history of atrial fibrillation but does not have a history of seizures. She reports that the patient takes Eliquis and aspirin. In the ED he was loaded with Keppra 1g and then was started on Keppra 500 mg q 12 hours. discussion with Jose M, son-in-law he had a traumatic brain injury 11/2018 and resection of left temporal lobe after a fall backward hitting his head. He is minimally conversive at baseline, and was on dilantin until he went to rehab. Sinemet was started in rehab by a Dr Underwood to try to improve brain function and mobility. His primary care doctor thought it should be weaned off. He and his are moving to [place] to be closer to family for support. He denies current pain. Allergies Allergy/AdvReac Type Severity Reaction Status Date / Time No Known Allergies Allergy Unverified 08/04/19 03:44 Home Medications Home Medications Medication Instructions Recorded Confirmed Type Bladder Medication 1 dose PO HS 08/04/19 08/04/19 History amlodipine 5 mg PO BID 08/04/19 08/04/19 History apixaban [Eliquis] 5 mg PO BID 08/04/19 08/04/19 History aspirin 81 mg PO DAILY 08/04/19 08/04/19 History carbidopa-levodopa [Sinemet] 1 tab PO DIRECTED 08/04/19 08/04/19 History metoprolol tartrate 12.5 mg PO DAILY 08/04/19 08/04/19 History Patient History Medical History Aortic stenosis Atrial fibrillation Hypertension TBI (traumatic brain injury) Family History Other No significant family history Social History Preferred Language: [place] Communication Ability: Effective 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: No Beliefs That Will Affect Care: Restoration Restoration Beliefs: Mennonite marital status: Current Living Situation: Spouse Other Information That Helps Us Care for You: No Feels Safe at Home: Yes Safety Concerns: Feels Safe At This Time Smoking Status: Never smoker Hx Alcohol Use: No Hx Substance Use: No Physical Exam Physical Exam: Physical Exam: Constitutional: appearance over nourished, wakes easily with voice command Ears, Nose, Mouth and Throat: mucous membranes moist, no injection and skin normal, eyes normal Cardiovascular: irregular Respiratory: course breath sounds Musculoskeletal: good distal pulses, feet warm Skin: no stigmata of neurocutaneous disease noted and normal and intact Eyes: extraocular muscles intact (EOMI) and pupils equal, round and reactive to light (PERRL) NEUROLOGIC EXAMINATION: Mental status: Alert and minimally verbal Oriented when asked location he tries to respond but unable to understand, responses to "yes" "no" questions Oriented to person Speech limited fund of words Cranial Nerves face appear symmtric Reflexes: Deep tendon reflexes were symmetrical 2/5 UE decreased due to stiffness Sensory: intact to light and cool touch and vibration Coordination: unable to assess Gait/Stance: Posture lying in bed 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 R 4+/5 L 5/5 biceps triceps R 4/5, L 5/5 hip flex 1/5, plantar flex ext 5/5 Results & Data Vital Signs (Past 12 Hours) Vital Signs Temp Pulse Pulse Resp BP BP Pulse Ox 08/04/19 11:30 36.5 C 91 H 16 97/74 L 96 08/04/19 07:03 36.5 C 90 15 93/69 L 08/04/19 06:22 91 H 18 102/82 95 08/04/19 04:28 108 H 18 101/71 94 08/04/19 03:04 36.6 C 127 H 18 127/103 H 87 L Laboratory Results Abnormal lab results 08/04/19 08/04/19 08/04/19 Range/Units 03:21 03:44 03:49 MPV 12.0 H (7.4-10.4) fL Immature Gran # (Auto) 0.03 H (0.00-0.02) K/uL Neut # (Auto) 6.97 H (1.4-6.5) K/uL Orange # (Auto) 1.01 H (0.11-0.59) K/uL Chloride (98-107) mmol/L Glucose (70-99) mg/dl POC Glucose 123 H (70-99) Hemoglobin A1c 5.7 H (4.5-5.6) % AST (15-37) U/L NT-Pro-B Natriuret Pep (0-900) pg/ml Albumin (3.4-5.0) gm/dl 08/04/19 08/04/19 Range/Units 03:49 03:49 MPV (7.4-10.4) fL Immature Gran # (Auto) (0.00-0.02) K/uL Neut # (Auto) (1.4-6.5) K/uL Orange # (Auto) (0.11-0.59) K/uL Chloride 108 H (98-107) mmol/L Glucose 126 H (70-99) mg/dl POC Glucose (70-99) Hemoglobin A1c (4.5-5.6) % AST 9 L (15-37) U/L NT-Pro-B Natriuret Pep 2987 H (0-900) pg/ml Albumin 3.2 L (3.4-5.0) gm/dl Diagnostic Findings CT head-Postoperative changes including a large geographic left craniotomy. Craniotomy flap is slightly distracted. Left frontal/parietal postprocedural encephalomalacia. No well-defined acute process within the limitations of an absence of prior studies. CXR- Cardiomegaly with pulmonary vascular congestion. EEG - This EEG reveals evidence for mild generalized slowing consistent with a nonspecific encephalopathy, focal slowing in the left hemisphere consistent with a focal area of neuronal dysfunction and certainly consistent with the clinical history of a subdural hematoma and encephalomalacia post evacuation of the former but does not reveal evidence for definitive electroencephalographic seizure activity. The absence of this however does not exclude a seizure disorder and clinical correlation is required
--- NOTE | 2019-08-04 15:25 | Electroencephalogram ---
EEG Procedure Note Date of Service August 04, 2019 Start / End Times Start Time: 0849 End Time: 0909 Referring Physician Martir Roberts MD History Status post evacuation of left frontal subdural hematoma with postoperative encephalomalacia, a aphasia, mild hemiparesis and now a seizure Home Medication List Home Medications Medication Instructions Recorded Confirmed Type Bladder Medication 1 dose PO HS 08/04/19 08/04/19 History amlodipine 5 mg PO BID 08/04/19 08/04/19 History apixaban [Eliquis] 5 mg PO BID 08/04/19 08/04/19 History aspirin 81 mg PO DAILY 08/04/19 08/04/19 History carbidopa-levodopa [Sinemet] 1 tab PO DIRECTED 08/04/19 08/04/19 History metoprolol tartrate 12.5 mg PO DAILY 08/04/19 08/04/19 History Inpatient Medication List Amlodipine Besylate (Norvasc) 5 mg PO BID [facility] Stop: 09/03/19 08:59 Last Admin: 08/04/19 08:16 Dose: 5 mg Documented by: [id number] Apixaban (Eliquis) 5 mg PO BID [facility] Stop: 09/03/19 08:59 Last Admin: 08/04/19 08:16 Dose: 5 mg Documented by: [id number] Aspirin (Ecotrin Ectab) 81 mg PO DAILY [facility] Stop: 09/03/19 08:59 Last Admin: 08/04/19 08:17 Dose: 81 mg Documented by: [id number] Metoprolol Tartrate (Lopressor) 12.5 mg PO BID [facility] Stop: 09/03/19 05:29 Last Admin: 08/04/19 05:55 Dose: Not Given Documented by: [id number] Discontinued Medications Levetiracetam 1,000 mg/ (Dextrose) 110 mls @ 440 mls/hr IV NOW STA Stop: 08/04/19 06:35 Last Infusion: 08/04/19 09:56 Dose: 0 mls/hr Documented by: [id number] Admin: 08/04/19 09:16 Dose: 440 mls/hr Documented by: [id number] Potassium Chloride (Klor-Con M20) 20 meq PO NOW STA Stop: 08/04/19 07:35 Last Admin: 08/04/19 08:20 Dose: 20 meq Documented by: [id number] Description This is a 21 electrode EEG with a single channel dedicated to limited EKG. The electrodes were placed in accordance with the International 10-20 system. This EEG was done as a bedside recording and is of reasonable technical quality. Simultaneous video analysis of patient movement and behavior was obtained. Photic stimulation was performed These conditions there is no evidence for normal background alpha rhythm but rather a modest amplitude theta pattern and posterior head regions of up to 7 to 8 Hz maximum frequency and 20 to 30 V of maximal amplitude. Polymorphic theta activity is also seen over the central regions but is clearly more prominent over the left central and frontal zones where it is of the lower frequency, higher amplitude and is intermixed with nonrhythmic waveforms in the delta range of modest amplitude. Beta activity is difficult to visualize because of the underlying frontal theta delta slowing which is maximum on the left Photic stimulation provokes a minimal driving response without a photoparoxysmal photo myogenic component No time is or clear-cut evidence for potentially epileptogenic activity for polyspike or spike-wave burst, focal sharp waves or focal spikes and the theta delta activity of the left frontal region is not rhythmic Interpretation EEG is abnormal in a generalized fashion with an absence of a sustained background alpha rhythm and with excessive amounts of theta delta activity most prominent over the left frontal and central regions consistent with the known structural lesion in that area but is not associated with any clear-cut potentially epileptogenic patterns. The absence of the latter however does not exclude the clinical diagnosis of a seizure disorder Clinical Correlation This EEG reveals evidence for mild generalized slowing consistent with a nonspecific encephalopathy, focal slowing in the left hemisphere consistent with a focal area of neuronal dysfunction and certainly consistent with the clinical history of a subdural hematoma and encephalomalacia post evacuation of the former but does not reveal evidence for definitive electroencephalographic seizure activity. The absence of this however does not exclude a seizure disorder and clinical correlation is required David Antonio MD
[2019-08-04] MEDS ORDERED: GADOBUTROL 65ML VIAL IV PRN (16:21)
--- NOTE | 2019-08-04 16:52 | Magnetic Resonance Report ---
Brain MRI WITH AND WITHOUT CONTRAST HISTORY: seizure TECHNIQUE: Multiplanar multisequence MRI of the brain was performed both before and after the intrave nous administration of contrast. COMPARISON STUDY: Head CT 08/04/2019. FINDINGS: Motion artifact. No areas of restricted diffusion to suggest acute infarction. Small left m astoid effusion. A few scattered small retention cyst within the left maxillary sinus and ethmoid air cells. The major vascular flow voids at the skull base are well-maintained. Left-sided craniotomy is again noted. Large areas of cystic change are present throughout the majority of the left frontal lo be with surrounding increased T2 signal. This favors postoperative encephalomalacia and associated gl iosis. Vasogenic edema could also have a similar appearance but is considered less likely given the l ack of significant mass effect or midline shift. Mild ex vacuo dilatation of the left lateral ventric le in comparison to the right. The orbits are unremarkable. Mild enhancing and thickening along the l eft dura deep to the craniotomy site. This is likely postoperative. Small focus of increased T1 signa l within the left frontal lobe on image 20. This measures 11 mm. This favors a small amount of postop erative change or cortical laminar necrosis rather than acute hemorrhage. Scattered areas of suscepti bility artifact primarily within the left side of the brain may also represent old hemorrhage or post operative change. IMPRESSION: 1. An 11 mm focus of increased T1 signal within the peripheral left frontal lobe. This is nonspecific but favors old postoperative change or cortical laminar necrosis. Follow-up head CT in 24 hours radha mmended to exclude the less likely possibility of a small focus of hemorrhage. 2. Extensive cystic/encephalomalacic change with areas of increased T2 signal involving the majority of the left frontal lobe which favors old postoperative and old posttraumatic changes. No significan t mass effect or enhancement to suggest underlying vasogenic edema or mass. 3. No acute infarct. Electronically signed by: Guanaco Pereira M.D. 08/04/2019 4:51 PM
[2019-08-04] MEDS ORDERED: METOPROLOL TARTRATE 25 MG TAB PO STA (17:39)
[2019-08-04] MEDS: levETIRAcetam 500 MG TAB PO SCH (21:36)
[2019-08-05 04:25] LABS: Basophils # (auto) 0.05 K/uL (0-0.2); Basophils % (auto) 0.4 %; Eosinophils # (auto) 0.46 K/uL (0-0.5); Eosinophils % (auto) 4.1 %; Hematocrit (blood only) 42.9 % (42-52); Hemoglobin 14.3 g/dL (14.0-18.0); Immature Granulocytes # (auto) 0.04 K/uL (0.00-0.02); Immature Granulocytes % (auto) 0.4 %; Lymphocytes # (auto) 3.08 K/uL (1.2-3.4); Lymphocytes % (auto) 27.6 %; Mean Corpuscular Hemoglobin 28.6 pg (25-34); Mean Corpuscular Hgb Conc 33.3 g/dL (32-36); Mean Corpuscular Volume 85.8 fL (80-100); Mean Platelet Volume 12.1 fL (7.4-10.4); Monocytes # (auto) 1.12 K/uL (0.11-0.59); Neutrophils # (auto) 6.41 K/uL (1.4-6.5); Neutrophils % (auto) 57.5 %; Platelet Count 191 K/uL (130-400); RDW Coefficient of Variation 14.3 % (11.5-14.5); RDW Standard Deviation 44.5 fL (36.4-46.3); White Blood Count 11.16 K/uL (4.8-10.8)
[2019-08-05 04:57] LABS: BUN Creatinine Ratio 21.6 (10-20); Calcium 8.6 mg/dl (8.5-10.1); Creatinine Clr Calc Pharmacy 162.5 ml/min; Magnesium 2.1 mg/dl (1.8-2.4); Potassium 3.9 mmol/L (3.5-5.1)
--- NOTE | 2019-08-05 08:11 | CT Scan Report ---
CT head/brain wo con CLINICAL HISTORY: Abnormal brain MRI. Possible acute hemorrhage. COMPARISON STUDY: 08/04/2019 TECHNIQUE: Axial CT of the brain is performed from the vertex to the skull base. IV contrast was not administered for this examination. A dose lowering technique was utilized adhering to the principles of ALARA. CT DOSE: 537.48 mGy.cm FINDINGS: There are postsurgical changes of a left-sided craniotomy. The craniotomy flap demonstrates 8 mm of m aximal displacement. This finding remains stable. There are persistent areas of left temporal and fro ntal encephalomalacia. There is no evidence of acute hemorrhage. There are patchy white matter hypodensities likely on a small vessel basis. There is compensatory dilatation of the left lateral ventricle secondary to volume loss. There is no evidence of acute sinusitis IMPRESSION: 1. Postsurgical changes of a left-sided craniotomy with areas of left hemispheric encephalomalacia, u nchanged from the preceding study. 2. No evidence of acute hemorrhage. 3. No acute intracranial findings. Electronically signed by: Mango Johns M.D. 08/05/2019 8:10 AM
[2019-08-05] MEDS: levETIRAcetam 500 MG TAB PO SCH ×2 (08:23→20:42)
[2019-08-05] MEDS: METOPROLOL TARTRATE 25 MG TAB PO SCH ×2 (08:23→20:42)
[2019-08-05] MEDS: AMLODIPINE BESYLATE 5 MG TAB PO SCH (08:23)
[2019-08-05] MEDS: ASPIRIN 81 MG ECTAB PO SCH (08:24)
[2019-08-05] MEDS: APIXABAN 5 MG TABLET PO SCH ×2 (08:24→20:41)
--- NOTE | 2019-08-05 09:52 | Hospitalist Progress Note ---
Date of Service August 05, 2019 Assessment & Plan (1) Seizure: Witnessed generalized seizure with urinary incontinence. History of intracranial hemorrhages (SDH, SAH, intraparenchymal hemorrhage) secondary to trauma Nov 2018. CT head without contrast 08/04: 1. Postoperative changes including a large geographic left craniotomy. Craniotomy flap is slightly distracted. 2. Left frontal/parietal postprocedural encephalomalacia. 3. No well-defined acute process within the limitations of an absence of prior studies. Electronically signed by: Charlie Auguste M.D. 08/04/2019 6:29 AM MRI brain 08/04: 1. An 11 mm focus of increased T1 signal within the peripheral left frontal lobe. This is nonspecific but favors old postoperative change or cortical laminar necrosis. Follow-up head CT in 24 hours recommended to exclude the less likely possibility of a small focus of hemorrhage. 2. Extensive cystic/encephalomalacic change with areas of increased T2 signal involving the majority of the left frontal lobe which favors old postoperative and old posttraumatic changes. No significant mass effect or enhancement to suggest underlying vasogenic edema or mass. 3. No acute infarct. Electronically signed by: Guanaco Pereira M.D. 08/04/2019 4:[address] head without contrast 08/05: . Postsurgical changes of a left-sided craniotomy with areas of left hemispheric encephalomalacia, unchanged from the preceding study. 2. No evidence of acute hemorrhage. 3. No acute intracranial findings. Electronically signed by: Mango Johns M.D. 08/05/2019 8:10 AM EEG showed abnormalities consistent with known structural lesion, but no obvious epileptogenic activity. Neurology consulted and recommended anticonvulsant therapy with levetiracetam. Noted to be hypoxic at time of admission- ? secondary to CHF or possible sleep apnea. May have been contributing factor. (2) CHF (congestive heart failure): Chest x-ray at time of admission showed cardiomegaly and pulmonary edema. Family not aware of any history of CHF. TTE at [facility] Nov 2018 showed severe , normal LVEF. PATIENCE at [facility] March 2019 showed severe , LVEF 45-50%, dilated LA without thrombus, dilated RV with reduced RV systolic function. Chest x-ray today improved. Probable acute left ventricular systolic heart failure with associated aortic stenosis. Check f/u echo and consult Cardiology. (3) Aortic stenosis, severe: As discussed above. (4) Atrial fibrillation with RVR: Chronic AF. Apparently first noted in Nov 2018, but onset uncertain. Presented with rapid ventricular rate. Metoprolol dose adjusted; rate improved. Continue apixaban. (5) Hypertension: Continue metoprolol and amlodipine. (6) History of intracranial hemorrhage: Intracranial hemorrhage Nov 2018 attributed to trauma- subdural hematoma + SAH + intraparenchymal hemorrhage. Neuro status back to recent baseline per family. No apparent acute findings on neuroimaging. (7) Hypoxia: O2 sat 87% on RA at time of admission. CXR showed pulmonary edema. Family concerned about possible sleep apnea. Oxygenation improved. Check nocturnal pulse oximetry. Outpatient sleep study when possible. Management of CHF as noted above. (8) DVT prophylaxis: Continue apixaban for AF + VTE prophylaxis. (9) Discharge planning issues: Anticipated discharge to home. Patient is in the process of moving from [facility] to [place]. PCP is: [place] [address] Has been hospitalized twice this year at [facility] and sees some specialists there. Follow-up in [facility] to be determined. Will need PCP, Neurologist, and Business Management Analyst. Subjective Recheck for multiple problems. Patient seen in their room around 0940. Patient has problems with communication related to his closed head injury + intracranial hemorrhage. Nursing reports that he is more alert than yesterday. No further seizure activity. Review of Systems: Constitutional- no fever. Cardiac- no chest pain. Pulmonary- no cough or SOB. GI- no nausea, vomiting, diarrhea, melena, hematochezia. - no urinary symptoms. Otherwise, as noted above. (questionable reliability because of cognitive status) Physical Exam Constitutional: no acute distress Respiratory: no respiratory distress Auscultation: lungs clear to ausc ultation bilaterally Cardiovascular: Rate/Rhythm: + irregularly irregular Heart Sounds: no gallop, no murmur and no cardiac rub Vessels: no JVD Extremities: no calf tenderness and no edema Gastrointestinal (Abdomen): normal bowel sounds, soft, nontender, no hepatosplenomegaly Skin: no rashes, warm and dry Neurologic: dysconjugate gaze apparent mixed aphasia proximal upper extremity strength ~ 4/5 lower extremity strength ~ 4/5 ( ? understanding of instructions) Psychiatric: Orientation: alert; + not oriented x 3 Results & Data Vital Signs (Past 12 Hours) Vital Signs Temp Pulse Resp BP Pulse Ox 08/05/19 08:29 36.4 C L 96 H 24 114/83 98 08/05/19 05:00 36.7 C 78 16 116/79 99 08/05/19 04:00 88 17 114/77 97 08/05/19 00:00 36.5 C 76 15 120/86 98 Laboratory Results 08/05/19 03:57 08/05/19 03:57 Diagnostic Findings PORTABLE CHEST X-RAY Cardiomegaly, resolving CHF.
--- NOTE | 2019-08-05 14:31 | XRay Report ---
XR chest 1V portable CLINICAL HISTORY: CHF COMPARISON STUDY: 08/04/2019 FINDINGS: The heart remains enlarged. There is aortic tortuosity. There is resolving congestive failu re. Patchy left basilar opacities are likely atelectatic. There are no significant pleural effusions. There is no pneumothorax.[ IMPRESSION: Cardiomegaly and resolving congestive failure. Electronically signed by: Mango Johns M.D. 08/05/2019 2:30 PM
--- NOTE | 2019-08-05 14:31 | Neurology Progress Note ---
Date of Service August 05, 2019 Assessment & Plan (1) Seizure: 1. Keppra 1g in ED. continue Keppra 500 mg BID- may need to increase at some point 2. Keppra level tomorrow 3. MRI chronic post trauma/ surgery changes 4. medical management per ICU team 5. EEG- left slowing no seizure focus 6. son in law - [phone] appreciates updates when available 7. will be moving to [place] in approx 2-3 weeks- will need PCP and neurology for continuation of care 8. Sinemet was started for mobility issues and brain stimulation it has not been given here in the hospital - stopped do not restart 9. PT/OT for discharge needs 10. fall precautions Supervising Physician Co-Signing Physician Notes I have seen and discussed above patient with Dr David Antonio, neurology I have seen Mr. Garcias today in the accompaniment of his son-in-law Dr. Lemus and apparently the records from [place] are finally available, were reviewed by Dr. Lemus and there apparently was a question back in November as to whether this man had a syncopal episode and then a posttraumatic intraparenchymal bleed or whether he had hemorrhagic spontaneous intracerebral bleed and then a syncopal episode. He does have significant aortic stenosis and chronic atrial fibrillation and presented here with elements of congestive heart failure but some of this could have been postictal and this is all largely cleared at this time He is tolerating the Keppra very well he is pretty much at his baseline according to the son-in-law which consists of a significant a aphasia with very little spontaneous speech, limited comprehension and a right hemiparesis and is no more lethargic than he generally has been so fortunately the Keppra seems to be at least at this point not affiliated with any significant sedation or increased irritability but is early in the course of time will tell He is going to have an echocardiogram and a cardiology consult and I think because his medical, cardiac and neurologic care going to be rendered in the [place] area within the near future, he will probably be enrolled in the [facility] system and we are going to arrange to see him in follow-up about 2 to 3 weeks after discharge, may or may not get a Keppra level at that time and see how he is doing. In the interim Dr. Alvares of cardiology is going to be assessing him and making recommendations regarding further cardiac testing and perhaps at some point aortic valve surgery depending on the results of the echo and the degree of stenosis Neurology will probably see him one more time tomorrow but if he is discharged prior to our visit in the afternoon we are going to make arrangements for him to be followed up in the office in 3 weeks time and we are making no red further recommendations regarding Keppra other than that it be continued on 500 mg twice a day dose David Antonio MD Leonides Anderson i is a 63 year old male who presents to [facility] ED with change in MS. He has a traumatic brain injury and is nonverbal. She states that the patient was acting normally before going to bed. She notes that the patient woke up this morning and used the urinal in bed. She reports that about 20 minutes later, she awoke to the patient moaning loudly. She states that the patient seemed to be stiff and foaming at the mouth at that time. She notes that the patient also had a rigid neck. He was breathing was slow following the episode. He also has a history of atrial fibrillation but does not have a history of seizures. She reports that the patient takes Eliquis and aspirin. In the ED he was loaded with Keppra 1g and then was started on Keppra 500 mg q 12 hours. discussion with Jose M, son-in-law he had a traumatic brain injury 11/2018 and resection of left temporal lobe after a fall backward hitting his head. He is minimally conversive at baseline, and was on dilantin until he went to rehab. Sinemet was started in rehab by zia Underwood to try to improve brain function and mobility. His primary care doctor thought it should be weaned off. He and his are moving to [place] to be closer to family for support. Today he is sitting in a bedside chair and conversational. His son in law is in the room and states he is close to baseline. denies CP, SOB, abdominal pain. Physical Exam Physical Exam: Gen: alert NAD lungs course breath sounds CV irregular hand pre press proofer biceps triceps R-4+/5, L-5/5, hip flex right 4+/5 left 5/5 Results & Data Vital Signs (Past 12 Hours) Vital Signs Temp Pulse Resp BP Pulse Ox 08/05/19 11:13 36.6 C 80 21 115/74 94 08/05/19 08:29 36.4 C L 96 H 24 114/83 98 08/05/19 05:00 36.7 C 78 16 116/79 99 08/05/19 04:00 88 17 114/77 97 Laboratory Results Abnormal lab results 08/05/19 08/05/19 Range/Units 03:57 03:57 WBC 11.16 H (4.8-10.8) K/uL MPV 12.1 H (7.4-10.4) fL Immature Gran # (Auto) 0.04 H (0.00-0.02) K/uL [place] # (Auto) 1.12 H (0.11-0.59) K/uL BUN/Creatinine Ratio 21.6 H (10-20) Diagnostic Findings MRI brain-An 11 mm focus of increased T1 signal within the peripheral left frontal lobe. This is nonspecific but favors old postoperative change or cortical laminar necrosis. Follow-up head CT in 24 hours recommended to exclude the less likely possibility of a small focus of hemorrhage. Extensive cystic/encephalomalacic change with areas of increased T2 signal involving the majority of the left frontal lobe which favors old postoperative and old posttraumatic changes. No significant mass effect or enhancement to suggest underlying vasogenic edema or mass. No acute infarct.
[2019-08-05] MEDS ORDERED: PERFLUTREN LIPID MICROSPHERE (DEFINITY) IV ONE (16:18)
[2019-08-06 04:05] VITALS: TEMP 97.3
[2019-08-06 07:50] VITALS: O2SAT 93
[2019-08-06] MEDS: APIXABAN 5 MG TABLET PO SCH (09:05)
[2019-08-06] MEDS: ASPIRIN 81 MG ECTAB PO SCH (09:05)
[2019-08-06] MEDS: levETIRAcetam 500 MG TAB PO SCH (09:05)
[2019-08-06] MEDS: METOPROLOL TARTRATE 25 MG TAB PO SCH (09:06)
[2019-08-06] MEDS: AMLODIPINE BESYLATE 5 MG TAB PO SCH (09:08)
--- NOTE | 2019-08-06 13:24 | Cardiology Consultation ---
Date of Consultation August 06, 2019 Assessment & Plan (1) Aortic stenosis, severe: (2) Atrial fibrillation: (3) LBBB (left bundle branch block): (4) History of intracranial hemorrhage: Mr Harris is a 63 year old male parent previous history of pretension having been treated with lisinopril. His son-in-law, Jose M, describes to me that in the fall 2017 the patient had a nuclear stress test which was reportedly normal. The diagnosis of aortic valve stenosis was not known to the family until the patient suffered an intracranial hemorrhage in November,. Underlying cause of the patient's brain injury at that time remains unclear. Given his hypertension on presentation, his family member tells me, that his previous care team suspected that perhaps the patient suffered an acute hemorrhagic stroke, and suffered a fall with superimposed traumatic brain injury including subdural hematoma and skull fracture. This is certainly very possible given the complex findings on his neuroimaging at the time of presentation. The discharge summary from [place] in November,. Another possibility is that the patient was having an episode after exerting himself shoveling snow in the setting of severe aortic valve stenosis, suffered syncope, with a traumatic brain injury. He had been observed to have wide-complex arrhythmia issues on both of his hospital stays in [place], it is unclear if this was ventricular in etiology, or atrial fibrillation with a aberrant conduction. I reviewed his telemetry thus far this hospital stay and find rate controlled atrial fibrillation without wide-complex arrhythmia, significant PVCs, or pauses. It appears that the etiology of his presenting event this time is consistent with seizure given his history. Although his transthoracic echocardiogram is technically limited, based on the previous studies including the emergent transesophageal echocardiogram performed in March at [place] of the patient does have severe aortic valve stenosis. I had a long conversation with Jose M regarding the patient's aortic valve stenosis, the pathology and natural history of this disease. Transesophageal echocardiogram suggest a trileaflet aortic valve, however the patient does have a family history of a brother who suddenly of a presumed cardiac event in his 60s and a sister who at age 67 of a presumed cardiac event. Congenital aortic valve disease is certainly a possibility. I recommended that the patient's 5 children should be screened with an echocardiogram for aortic valve stenosis. In terms of surgical or transcatheter intervention for his inferior aortic valve stenosis, the patient has chronic right-sided weakness, and has impaired cognitive status at baseline. He does not offer significant verbal communication, and his ongoing cognitive and physical deficits from his brain injury limit his physical exertion. I do not think that surgical or transcatheter intervention for his aortic valve stenosis would alter his prognosis or trajectory at present. Would recommend ongoing observation. The patient had lived in the [place] area, but is in the process of moving to [place]. He is Mennonite and is a self pay patient, and his family is aware of a program the community utilizes with [facility], the patient can therefore follow with me as an outpatient. At present, I am not certain about the indication for him being on aspirin since he is on Eliquis, he does not have known coronary disease. This likely increases his bleeding risk, and the current guidelines recommend against aspirin for primary prevention of coronary artery disease event. I will coordinate this with neurology who is following the patient. Recommend outpatient cardiology follow up perhaps in 2-3 months or sooner if necessary. History of Present Illness Attending Physician: David Lemus MD History of Present Illness Justin Jr Dieter is a 63 year old Mennonite male seen in cardiology consultation per the request of Dr Lemus for the evaluation of severe aortic valve stenosis. His son in law , Jose M, was at the bedside at the time of my assessment. The patient is unable to provide meaningful history due to his chronic cognitive impairment. He denies any shortness of breath. At home he walks minimally with the assistance of a walker under close supervision by his family but does not exert himself much. He was admitted for a seizure episode. Neuroimaging has been found to be stable this admission, and he was seen by neurology, Keteddyra terri medina. The patient's complex history dates back to November 2018. 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 He had apparently been outside in the sleep doing some shoveling for a brief amount of time, he came in, and security cameras showed that he braced himself, prior to having an unwitnessed fall impacting the back of his head. He was transferred by EMS to [facility] as a trauma patient. He was diagnosed with a subdural hematoma and skull fracture. Per the available discharge summary, he was hypertensive with blood pressures in the 220s in the emergency department. The patient underwent two neurosurgical p rocedures during that hospital stay. He was also noted to have atrial fibrillation had a transient wide-complex rhythm and was treated with trans- amiodarone, and was ultimately discharged on propranolol. An echocardiogram performed during hospital stay was technically limited but suggests severe aortic valve stenosis with normal to hyperdynamic left ventricular systolic function. He returned to [facility] in March of this year and while he was being induced for anesthesia for a cranioplasty wide-complex cardiac rhythm was apparently observed. The records are somewhat unclear as to whether or not he received defibrillation or not. A stat transesophageal echocardiogram was performed the patient was on the operating table revealing an LVEF in the range of 45%, right ventricular chamber enlargement, and 2D findings consistent with severe aortic valve stenosis. EKG on presentation to this institution on 08/04/2019 at 3:33 AM revealed atrial fibrillation with rapid ventricular response and wide QRS complexes. Patient was reportedly hemodynamically stable at the time this tracing was obtained. A repeat EKG was performed today 08/06/2019 at 87 bpm with narrow complex QRS m orphology. Per comparison review these tracings, I believe that the wide-complex rhythm is atrial fibrillation with aberrant conduction (versus rate related left bundle branch block) rather than a ventricular arrhythmia. I believe this correlates well with his arrhythmia history as noted in his [place] records. The patient was optimized from a medication standpoint, and ultimately went to inpatient rehabilitation and there is area prior to being discharged home. Current outpatient medications include metoprolol tartrate 12.5 mg daily, aspirin 81 mg daily, Eliquis 5 mg twice daily, and amlodipine 5 mg twice daily. Allergies Allergy/AdvReac Type Severity Reaction Status Date / Time No Known Allergies Allergy Unverified 08/04/19 03:44 Home Medications Home Medications Medication Instructions Recorded Confirmed Type Bladder Medication 1 dose PO HS 08/04/19 08/04/19 History amlodipine 5 mg PO BID 08/04/19 08/04/19 History apixaban [Eliquis] 5 mg PO BID 08/04/19 08/04/19 History aspirin 81 mg PO DAILY 08/04/19 08/04/19 History carbidopa-levodopa [Sinemet] 1 tab PO DIRECTED 08/04/19 08/04/19 History metoprolol tartrate 12.5 mg PO DAILY 08/04/19 08/04/19 History Oxygen Home #1 ea 08/06/19 Rx Patient History Medical History Atrial fibrillation (Chronic) Hypertension (Chronic) History of intracranial hemorrhage (Chronic) Aortic stenosis, severe (Chronic) Aortic stenosis Atrial fibrillation Hypertension TBI (traumatic brain injury) Family History Other No significant family history Social History Preferred Language: Yakut Communication Ability: Impaired 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 Beliefs That Will Affect Care: Judaism Judaism Beliefs: Mennonite marital status: Current Living Situation: Spouse Other Information That Helps Us Care for You: No Feels Safe at Home: Yes Safety Concerns: Feels Safe At This Time Smoking Status: Never smoker Hx Alcohol Use: No Hx Substance Use: No Review of Systems Review of Systems: Unobtainable due to cognitive status Physical Exam Physical Exam: Temp Pulse Resp BP Pulse Ox 36.3 C L 91 H 18 139/82 93 08/06/19 07:48 08/06/19 07:48 08/06/19 07:48 08/06/19 07:48 08/06/19 07:48 Constitutional: + obese Respiratory: normal respiratory effort, lungs clear to auscultation Cardiovascular: Rate/Rhythm: regular rhythm Heart Sounds: + murmur (II/ systolic murmur) Vessels: no JVD Extremities: no edema Gastrointestinal (Abdomen): normal bowel sounds, soft, nontender, no hepatosplenomegaly Neurologic: Follows commands, right-sided upper and lower extremity weakness, chronic finding since his initial neurologic event in November, per his family Results & Data Vital Signs (Past 12 Hours) Vital Signs Temp Pulse Pulse Resp BP Pulse Ox 08/06/19 07:48 36.3 C L 91 H 18 139/82 93 08/06/19 07:35 88 08/06/19 03:15 36.3 C L 94 H 17 106/78 98 Diagnostic Findings Transthoracic echocardiogram performed 08/05/2019 reviewed independently: Atrial fibrillation with controlled chamber size and systolic function response was present during the echocardiogram. Moderate concentric left hypertrophy is present, mild LV systolic dysfunction noted LVEF 45%. Severe calcific aortic valve stenosis is absent. The right ventricular chamber size and systolic function were grossly normal limited visualization. Medications Administered Current Inpatient Medications Acetaminophen (Tylenol) 650 mg PO Q4H PRN PRN Reason: Pain or Fever Stop: 09/03/19 07:33 Amlodipine Besylate (Norvasc) 5 mg PO QAM [facility] Stop: 09/04/19 08:59 Last Admin: 08/06/19 09:08 Dose: 5 mg Documented by: Apixaban (Eliquis) 5 mg PO BID [facility] Stop: 09/03/19 08:59 Last Admin: 08/06/19 09:05 Dose: 5 mg Documented by: Aspirin (Ecotrin Ectab) 81 mg PO DAILY [facility] Stop: 09/03/19 08:59 Last Admin: 08/06/19 09:05 Dose: 81 mg Documented by: Gadobutrol (Gadavist 65ml) 11.5 ml IV ONCE PRN PRN Reason: Interaction Checking Stop: 08/08/19 16:20 Last Admin: 08/04/19 16:22 Dose: 11.5 ml Documented by: Lorazepam (Ativan) 1 mg in 2 mls @ 0.5 mls/min IV Q10M PRN PRN Reason: seizures Stop: 09/03/19 07:33 Promethazine HCl 12.5 mg/ (Sodium Chloride) 50.5 mls @ 202 mls/hr IV Q6H PRN PRN Reason: Nausea And Vomiting Stop: 09/03/19 07:33 Levetiracetam (Keppra) 500 mg PO BID [facility] Stop: 09/03/19 20:59 Last Admin: 08/06/19 09:05 Dose: 500 mg Documented by: Metoprolol Tartrate (Lopressor) 12.5 mg PO BID [facility] Stop: 09/03/19 05:29 Last Admin: 08/06/19 09:06 Dose: 12.5 mg Documented by: Oxycodone HCl (Roxicodone Immediate Rel) 5 mg PO Q4H PRN PRN Reason: Pain Stop: 08/18/19 07:33
--- NOTE | 2019-08-06 14:42 | Hospitalist Progress Note ---
Date of Service August 06, 2019 Assessment & Plan (1) Seizure: Witnessed generalized seizure at home with urinary incontinence. History of intracranial hemorrhages (SDH, SAH, intraparenchymal hemorrhage) secondary to trauma Nov 2018. CT head without contrast 08/04: 1. Postoperative changes including a large geographic left craniotomy. Craniotomy flap is slightly distracted. 2. Left frontal/parietal postprocedural encephalomalacia. 3. No well-defined acute process within the limitations of an absence of prior studies. Electronically signed by: Charlie Auguste M.D. 08/04/2019 6:29 AM MRI brain 08/04: 1. An 11 mm focus of increased T1 signal within the peripheral left frontal lobe. This is nonspecific but favors old postoperative change or cortical laminar necrosis. Follow-up head CT in 24 hours recommended to exclude the less likely possibility of a small focus of hemorrhage. 2. Extensive cystic/encephalomalacic change with areas of increased T2 signal involving the majority of the left frontal lobe which favors old postoperative and old posttraumatic changes. No significant mass effect or enhancement to suggest underlying vasogenic edema or mass. 3. No acute infarct. Electronically signed by: Guanaco Pereira M.D. 08/04/2019 4:[address] head without contrast 08/05: 1. Postsurgical changes of a left-sided craniotomy with areas of left hemispheric encephalomalacia, unchanged from the preceding study. 2. No evidence of acute hemorrhage. 3. No acute intracranial findings. Electronically signed by: Mango Johns M.D. 08/05/2019 8:10 AM EEG showed abnormalities consistent with known structural lesion, but no obvious epileptogenic activity. Neurology consulted and recommended anticonvulsant therapy with levetiracetam 500 mg BID. (2) CHF (congestive heart failure): Chest x-ray at time of admission showed cardiomegaly and pulmonary edema. Family not aware of any history of CHF. TTE at [facility] Nov 2018 showed severe , normal LVEF. PATIENCE at [facility] March 2019 showed severe , LVEF 45-50%, dilated LA without thrombus, dilated RV with reduced RV systolic function. Chest x-ray today improved. Probable acute left ventricular systolic heart failure with associated aortic stenosis. Echo 08/05 showed severe with LVEF around 45%. Cardiology consulted. Conservative management of vavlular disease recommended at this time in light of recent neurologic issues. No LIZBET or ARB because of severe . Pulmonary edema resolved without diuretic therapy- may have been transient & related to seizure. (3) Aortic stenosis, severe: As discussed above. (4) Atrial fibrillation with RVR: Chronic AF. Apparently first noted in Nov 2018, but onset uncertain. Presented with rapid ventricular rate. Metoprolol dose adjusted; rate improved. Continue apixaban. (5) Hypertension: Continue metoprolol and amlodipine. (6) History of intracranial hemorrhage: Intracranial hemorrhage Nov 2018 attributed to trauma- subdural hematoma + SAH + intraparenchymal hemorrhage. Neuro status back to recent baseline per family. No apparent acute findings on neuroimaging. (7) Hypoxia: O2 sat 87% on RA at time of admission. CXR showed pulmonary edema. Family concerned about possible sleep apnea. Oxygenation improved. Nocturnal pulse oximetry demonstrated O2 sats down to the 70's, most in low-mid 80's. DC on nocturnal O2 2 LPM. Outpatient sleep study when possible. (8) DVT prophylaxis: Continue apixaban for AF + VTE prophylaxis. (9) Discharge planning issues: Anticipated discharge to home. Back to recent neurologic baseline and family is comfortable caring for him at home. Patient is in the process of moving from [facility] to [place]. PCP is: Dr. Trey Lewis [address] [address] Has been hospitalized twice this year at [facility] and sees some specialists there. Follow-up in [place] / [facility] to be determined. Dr. Alvares is happy to see patient at [facility] in 2-3 months. [facility] Neurology team will arrange for follow-up with them Subjective Recheck for multiple problems. Pt seen in his room around 1130. Son-in-law Jean Claude visiting. Doing well. No further seizure activity. More alert, more interactive, laughing. No CP or SOB. No other concerns. Anxious to go home. Physical Exam Constitutional: no acute distress Respiratory: no respiratory distress Auscultation: lungs clear to auscultation bilaterally Cardiovascular: Rate/Rhythm: + irregularly irregular Heart Sounds: + murmur (III/ sys murmur at base); no gallop and no cardiac rub Vessels: no JVD Extremities: no calf tenderness and no edema Gastrointestinal (Abdomen): normal bowel sounds, soft, nontender, no hepatosplenomegaly Skin: no rashes, warm and dry Neurologic: dysconjugate gaze moderate weakness upper and lower extremities Psychiatric: Orientation: alert; + not oriented x 3 Results & Data Vital Signs (Past 12 Hours) Vital Signs Temp Pulse Pulse Resp BP Pulse Ox 08/06/19 07:48 36.3 C L 91 H 18 139/82 93 08/06/19 07:35 88 08/06/19 03:15 36.3 C L 94 H 17 106/78 98
[2019-08-06 15:36] VITALS: BP 93/69; PULSE 91
--- NOTE | 2019-08-06 22:51 | Discharge Summary ---
Date of Service Date of Admission: 08/04/19 Date of Discharge: 08/06/19 Admission HPI Per Admitting Provider History obtained from patient, family, and records. Limited history from patient secondary to cognitive impairment. Medical history significant for traumatic brain injury, hx ICH sp surgery, hypertension, A. fib on Eliquis, aortic stenosis. Patient is a resident of [facility] visiting family in [place], [place] this week. Patient and will be relocating to [facility] next month. Last November 2018 patient sustained traumatic intracranial hemorrhage requiring 2 operations (November and April) at [facility]. Right-sided weakness and cognitive impairment post injury. During confinement, patient developed rapid A. fib. Was also found to have aortic stenosis on 2D echo. Patient subsequently discharged to rehab on Eliquis for A. fib. Patient was also temporarily on Dilantin seizure prophylaxis until April 2019. Early this morning patient went to the bathroom. Patient's heard a squealing noise and later found patient to be stiff, as if he had seizures. Urinary incontinence noted. No tongue biting noted. Patient was at usual cognitive state as per family. Patient brought to the ER for evaluation. Principal Diagnosis seizure Discharge Data Allergies Allergy/AdvReac Type Severity Reaction Status Date / Time No Known Allergies Allergy Unverified 08/04/19 03:44 Consultations 08/04/19 05:21 ED Decision to Admit Stat 08/04/19 07:34 Consult Neurology Routine 08/06/19 09:58 Consult Cardiology Routine Ordered Studies 08/04/19 03:44 CT head/brain wo con Urgent 08/04/19 07:34 MR brain seizure wo/w con Routine 08/05/19 08:00 CT head/brain wo con Routine Hospital Course (1) Seizure: Witnessed generalized seizure at home with urinary incontinence. History of intracranial hemorrhages (SDH, SAH, intraparenchymal hemorrhage) secondary to trauma Nov 2018. CT head without contrast 08/04: 1. Postoperative changes including a large geographic left craniotomy. Craniotomy flap is slightly distracted. 2. Left frontal/parietal postprocedural encephalomalacia. 3. No well-defined acute process within the limitations of an absence of prior studies. Electronically signed by: Charlie Auguste M.D. 08/04/2019 6:29 AM MRI brain 08/04: 1. An 11 mm focus of increased T1 signal within the peripheral left frontal lobe. This is nonspecific but favors old postoperative change or cortical laminar necrosis. Follow-up head CT in 24 hours recommended to exclude the less likely possibility of a small focus of hemorrhage. 2. Extensive cystic/encephalomalacic change with areas of increased T2 signal involving the majority of the left frontal lobe which favors old postoperative and old posttraumatic changes. No significant mass effect or enhancement to suggest underlying vasogenic edema or mass. 3. No acute infarct. Electronically signed by: Guanaco Pereira M.D. 08/04/2019 4:[address] head without contrast 08/05: 1. Postsurgical changes of a left-sided craniotomy with areas of left hemispheric encephalomalacia, unchanged from the preceding study. 2. No evidence of acute hemorrhage. 3. No acute intracranial findings. Electronically signed by: Mango Johns M.D. 08/05/2019 8:10 AM EEG showed abnormalities consistent with known structural lesion, but no obvious epileptogenic activity. Neurology consulted and recommended anticonvulsant therapy with levetiracetam 500 mg BID. (2) CHF (congestive heart failure): Chest x-ray at time of admission showed cardiomegaly and pulmonary edema. Family not aware of any history of CHF. TTE at [facility] Nov 2018 showed severe , normal LVEF. PATIENCE at [facility] March 2019 showed severe , LVEF 45-50%, dilated LA without thrombus, dilated RV with reduced RV systolic function. Chest x-ray today improved. Probable acute left ventricular systolic heart failure with associated aortic stenosis. Echo 08/05 showed severe with LVEF around 45%. Cardiology consulted. Conservative management of vavlular disease recommended at this time in light of recent neurologic issues. No LIZBET or ARB because of severe . Pulmonary edema resolved without diuretic therapy- may have been transient & related to seizure. (3) Aortic stenosis, severe: As discussed above. (4) Atrial fibrillation with RVR: Chronic AF. Apparently first noted in Nov 2018, but onset uncertain. Presented with rapid ventricular rate. Metoprolol dose adjusted; rate improved. Continue apixaban. (5) Hypertension: Continue metoprolol and amlodipine. (6) History of intracranial hemorrhage: Intracranial hemorrhage Nov 2018 attributed to trauma- subdural hematoma + SAH + intraparenchymal hemorrhage. Neuro status back to recent baseline per family. No apparent acute findings on neuroimaging. (7) Hypoxia: O2 sat 87% on RA at time of admission. CXR showed pulmonary edema. Family concerned about possible sleep apnea. Oxygenation improved. Nocturnal pulse oximetry demonstrated O2 sats down to the 70's, most in low-mid 80's. DC on nocturnal O2 2 LPM. Outpatient sleep study when possible. (8) DVT prophylaxis: Continue apixaban for AF + VTE prophylaxis. (9) Discharge planning issues: Anticipated discharge to home. Back to recent neurologic baseline and family is comfortable caring for him at home. Patient is in the process of moving from [facility] to [facility]. PCP is: Dr. Trey Lewis [address] [address] Has been hospitalized twice this year at [facility] and sees some specialists there. Follow-up in [facility] to be determined. Dr. Alavres is happy to see patient at [facility] in 2-3 months. [facility] Neurology team will arrange for follow-up with them Total Time Total Time Spent Total Time Spent (In Minutes): 25 Discharge Plan Discharge Items Patient Disposition: Home - Self-Care Reason For Visit: seizure Discharge Diagnosis: seizure aortic stenosis Condition on Discharge: Fair Activity: Resume your previous activity Non-emergency contact: Primary Care Provider, Rod Piler and Neurologist Call non-emergency contact if: you have any medication questions, your symptoms worsen and your temperature is above 101 Follow-up/Referrals: Edgar Alvares DO [Rod Piler] - David Antonio MD [Physician] - PCP,NO [Primary Care Provider] - Diet: Heart Healthy Addtl Attending Provider Instructions: MEDICATION CHANGES: Stop aspirin- will increase risk of bleeding. Stop carbidopa-levodopa (Sinemet)- too many side effects. Stop tolterodine (Detrol)- too many side effects. Start levetiracetam (Keppra) 500 mg twice a day for seizures. Change metoprolol tartrate (Lopressor) to 12.5 mg (1/2 pill) twice a day. Ask pharmacist for scored tablets. SUMMARY OF TEST RESULTS: CT scans and MRI scan of brain did not show any new problems. EEG (electroencephalogram) showed abnormal brain waves, but no definite seizure activity at that time. Echocardiogram showed severe aortic stenosis and some weakening of heart muscle (but about the same as March). Oxygen levels are low when you are sleeping. RECOMMENDATIONS FOR FOLLOW-UP: Please see Dr. Lewis for recheck next week. Follow-up for aortic stenosis with Dr. Alvares in about 3 months. Follow-up for seizure with [facility] Neurology. OTHER INSTRUCTIONS: Use oxygen 2 liters / minute at night. Ask Dr. Lewis to schedule a sleep study to check for sleep apnea. Seek medical attention if you have: * temperature above 101 * chest pain or trouble breathing * abdominal pain, nausea, vomiting * diarrhea, dark stools or bloody stools * severe headache, seizure, worsening speech, worsening weakness in arms or legs * any unanswered questions or concerns Call [phone] if symptoms are severe. Please take good care of yourself. Call if you have any questions or problems. You can reach a [facility] hospitalist on duty at [facility] 24 hours a day by calling [phone]. My cell # is [phone]. Pending Studies at Discharge: Yes (Keppra level) Stand-Alone Forms: My [facility], Smoking Cessation Medications and DC Order Prescriptions: New Oxygen Home Liters Per Minute .ROUTE .MEDSUPPLY Qty: 1 RF: 0 metoprolol tartrate 25 mg Tablet 12.5 mg PO BID Qty: 30 RF: 5 levetiracetam 500 mg tablet 500 mg PO BID Qty: 60 RF: 5 Continued amlodipine 5 mg Tablet 5 mg PO DAILY RF: 0 Eliquis 5 mg Tablet 5 mg PO BID RF: 0 Discontinued aspirin 81 mg Tablet,Delayed Release (Dr/Ec) 81 mg PO DAILY RF: 0 carbidopa-levodopa [Sinemet] 25-100 mg Tablet 1 tab PO DIRECTED RF: 0 metoprolol tartrate 25 mg Tablet 12.5 mg PO DAILY RF: 0 Bladder Medication 1 dose PO HS RF: 0 Discharge Orders: Discharge Order (Routine); Ordered 08/06/19 Ordered By: David Lemus Admission Data Admit Date/Time: 08/05/19 10:04 Attending Provider: David Lemus Admit Provider: Martir Vaughan Primary Care Provider: PCP,NO Other Providers: Martir Vaughan ; David Antonio ; Seferino Coyle ; Edgar Alvares Other Interventions: Discharge Summary Assessment (RN) Last Done: 08/06/19 15:35 DC Date/Time DO NOT enter until pt leaves facility: 08/06/19 16:07
== END 2019-08-06 16:07 | disposition home or self-care (01) | DRG 101 ==
LOC: ED 03:10 → 1E 03:10 → SUATTDRO 06:16 → 1E 06:37 → 2S 08-05 19:29

== ENCOUNTER 2019-09-20 13:42 | Inpatient (IN) ==
[2019-09-20] MEDS ORDERED: AMIODARONE 360MG / 200ML D5W IV ONE (13:53)
[2019-09-20] MEDS ORDERED: AMIODARONE 150MG / 100ML D5W IV ONE (13:54)
[2019-09-20] MEDS ORDERED: AMIODARONE / D5W 150 MG/100 ML BAG IV STA (13:55)
[2019-09-20] MEDS ORDERED: FUROSEMIDE 40 MG/4 ML VIAL IV STA (13:57)
[2019-09-20] MEDS ORDERED: AMIODARONE / D5W 360 MG/200 ML BAG IV SCH (14:05)
[2019-09-20] MEDS ORDERED: ACETAMINOPHEN 65 ML IV ONE (14:08)
[2019-09-20] MEDS ORDERED: VANCOMYCIN HCL 2,750 MG in SODIUM CHLORIDE 0.9% 500 ML IV ONE (14:09)
[2019-09-20] MEDS ORDERED: VANCOMYCIN CONSULT ACTIVE PRN (14:09)
[2019-09-20] MEDS ORDERED: PIPERACILL/TAZOBAC CONSULT ACTIVE PRN (14:09)
[2019-09-20] MEDS ORDERED: PIPERACILLIN/TAZOBACTAM 4.5 GM/120 ML BAG IV ONE (14:09)
[2019-09-20 14:13] LABS: iSTAT Ionized Calcium 1.08 mmol/l (1.12-1.32); iSTAT Potassium 4.5 mEq/L (3.3-5.0)
[2019-09-20 14:14] LABS: Hematocrit (blood only) 49.1 % (42-52); Hemoglobin 16.1 g/dL (14.0-18.0); Mean Corpuscular Hemoglobin 28.1 pg (25-34); Mean Corpuscular Hgb Conc 32.8 g/dL (32-36); Mean Corpuscular Volume 85.8 fL (80-100); Nucleated RBC # (auto) 0.02 K/uL (0-0); Nucleated RBC % (auto) 0.1 %; Platelet Count 237 K/uL (130-400); RDW Coefficient of Variation 13.7 % (11.5-14.5); Red Blood Count 5.72 M/uL (4.7-6.1); White Blood Count 18.99 K/uL (4.8-10.8)
[2019-09-20 14:25] LABS: INR 1.2 (0.9-1.1); Partial Thromboplastin Ratio 1.2; Partial Thromboplastin Time 31.9 Seconds (21.0-31.0); Prothrombin Time 11.9 Seconds (9.0-12.0)
[2019-09-20 14:26] LABS: Albumin Level 3.5 gm/dl (3.4-5.0); BUN Creatinine Ratio 16.5 (10-20); Calcium 9.3 mg/dl (8.5-10.1); Creatinine Clr Calc Pharmacy 80.8 ml/min; Est GFR (African American) 76.4; Magnesium 2.2 mg/dl (1.8-2.4); Potassium 4.5 mmol/L (3.5-5.1)
[2019-09-20 14:29] LABS: Albumin Globulin Ratio 0.8 (0.9-2); Bilirubin,Total 1.3 mg/dl (0.2-1); Globulin 4.6 gm/dl (2.5-4.0); Total Protein 8.1 gm/dl (6.4-8.2)
[2019-09-20] MEDS ORDERED: ACETAMINOPHEN 1000 MG/100 ML IV IV ONE (14:32)
[2019-09-20 14:33] LABS: Basophils # (auto) 0.02 K/uL (0-0.2); Basophils % (auto) 0.1 %; Immature Granulocytes # (auto) 0.05 K/uL (0.00-0.02); Immature Granulocytes % (auto) 0.3 %; Lymphocytes # (auto) 2.36 K/uL (1.2-3.4); Lymphocytes % (auto) 12.4 %; Monocytes # (auto) 3.15 K/uL (0.11-0.59); Monocytes % (auto) 16.6 %; Neutrophils # (auto) 13.41 K/uL (1.4-6.5); Neutrophils % (auto) 70.6 %
[2019-09-20 14:51] LABS: Oxygen Saturation VBG 76.2 %; pH VBG 7.44 (7.36-7.41)
[2019-09-20 14:59] LABS: Troponin I 0.115 ng/ml (0-0.045)
--- NOTE | 2019-09-20 15:06 | XRay Report ---
XR chest 1V portable CLINICAL HISTORY: 63 years-old Male presenting with Sepsis. TECHNIQUE: Portable upright AP view of the chest was obtained. COMPARISON: 08/05/2019. FINDINGS: Atherosclerosis of the aortic arch. Cardiac silhouette enlarged. Pulmonary vascular and interstitial prominence. Dense opacity in the right mid to lower lung and to a lesser extent on the left in a valerie lar distribution. Small right pleural effusion. Degenerative changes of the thoracic spine. Upper abd omen normal. IMPRESSION: 1. Cardiomegaly with volume overload and congestive change. 2. Dense infiltrates in the mid to lower lungs greater on the right. This could represent asymmetric pulmonary edema versus multifocal pneumonia. 3. Small right pleural effusion. Electronically signed by: Jose Francisco Herring M.D. 09/20/2019 3:04 PM
--- NOTE | 2019-09-20 15:41 | History & Physical Report ---
Date of Service September 20, 2019 Assessment & Plan (1) Respiratory failure with hypoxia: This is a 63 yo M with a PMH of traumatic brain injury, history of intracranial hemorrhages (SDH, SAH, intraparenchymal hemorrhage) 2/2 trauma Nov 2018, chronic atrial fibrillation on Eliquis, severe aortic stenosis, left bundle branch block, seizure disorder and other medical problems listed below who presents with hypoxic respiratory failure since earlier today. -In the setting of aspiration during the night as well as congestive changes on CXR -Initially hypoxic at 79%, now saturating at 97% on bipap -Per discussion with POA, family desires temporary intubation / mech vent if appropriate -Management per ICU (2) Aspiration into airway: Had episode of vomiting overnight with associated coughing, concern for aspiration -Currently afebrile but with leukocytosis of 18.99 and lactate of 3.1 -CXR with cardiomegaly with volume overload and congestive change, dense infiltrates in the mid to lower lungs greater on the right. Could represent a symmetric pulmonary edema versus multifocal PNA -Does meet sepsis criteria per CMS guidelines so will cover with empiric zosyn and vanc, trend lactate -Not given fluid resuscitation due to stable BP, evidence of volume overload on CXR and h/o severe aortic stenosis (3) Atrial fibrillation with RVR: Initially with wide complex arrhythmia with heart rate around 200 -Was given IV amiodarone in the ED with reduction of heart rate 127 -Repeat EKG with evidence of atrial fibrillation with RVR, known left bundle branch block -Routine cardiology consult placed. Will be monitored in the ICU -Continue Eliquis (4) CHF due to valvular disease: Echo from 07/25 with severe aortic stenosis, EF ~ 45% -Given 20mg IV Lasix in ED. Monitor I&Os, daily weights (5) Seizure disorder: Recent seizure history during July admission -Was started on Keppra 500 twice daily (6) Aortic stenosis, severe: Severe aortic stenosis present on July 2019 TTE, previously known -Monitor volume status closely (7) Hypertension: Normotensive -Home medications include amlodipine and Lopressor (8) TBI (traumatic brain injury): History of TBI and ICH in November 2018 status post surgery -At baseline, patient has minimal communication, requires total care and is a 1 person assist DVT Ppx: Eliquis Code status: DNR per discussion with son-in-law (POA) at bedside PCP: Recently moved to [place] 1.5 weeks ago Dispo: Admitted to ICU. Discharge planning ordered Patient seen in collaboration with Dr. Lemus. Please see addendum. History of Present Illness Chief Complaint: hypoxia, weakness Primary Care Provider: NO PCP This is a 63 yo M with a PMH of traumatic brain injury, history of intracranial hemorrhages (SDH, SAH, intraparenchymal hemorrhage) 2/2 trauma Nov 2018, chronic atrial fibrillation on Eliquis, severe aortic stenosis, left bundle branch block, seizure disorder and other medical problems listed below who presents with hypoxic respiratory failure since earlier today. At baseline, patient is minimally verbal, requires total care and ambulates as a 1 assist. Recently moved to [place] from [place], [place] 1.5 weeks ago. History obtained from POA son-in-law at bedside. Patient developed cold symptoms 2 days ago with nasal congestion and cough but still seemed to be breathing normally, per family. Yesterday, was noted to be weaker on transfers and had a hypoxic episode when he was being transferred to shower. Also developed some rigidity at this time which raised concern for seizure but only lasted for a few seconds. Overnight, patient had difficulty sleeping and had a few bouts of emesis. Did complain of pain to his son-in-law at some point initially pointing to his abdomen and then his lower sternum. Has been using 2L [place] oxygen at night. Patient was recently admitted to our service in late July after witnessed seizure and was started on Keppra 500 mg BID. During admission, was also found to have hypoxic respiratory failure in the setting of pulmonary edema which resolved without diuresis. Also had initial wide complex tachycardia in setting of seizure but telemetry during remainder of admission revealed A Fib. TTE from Nov 2018 with severe aortic stenosis, LVEF around 45%. Conservative management of valvular disease was recommended at that time due to recent neurologic issues. Since discharge home, patient has undergone outpatient sleep study for possible sleep apnea but CPAP device has not arrived yet. Patient initially presented with wide-complex tachycardia with heart rate in the 190s that is improved to 137 on IV amiodarone. Initially tachypneic at 38 which is improved to 28 on BiPAP, on which he is saturating at 96%. Temperature 37.6 C. CXR with cardiomegaly with volume overload and congestive change as well as dense infiltrates in the mid to lower lungs greater on the right. Has leukocytosis of 18.99, serum lactate of 3.1, mild troponin elevation of 0.115, elevated BNP of 19,185, normal procalcitonin at 0.09, influenza PCR A and B pending. Patient was given 20 mg of IV Lasix for diuresis as well as started on empiric antibiotics Zosyn and vancomycin. Allergies Allergy/AdvReac Type Severity Reaction Status Date / Time No Known Allergies Allergy Unverified 08/04/19 03:44 Home Medications Home Medications Medication Instructions Recorded Confirmed Type Eliquis 5 mg PO BID 08/04/19 09/20/19 History amlodipine 5 mg PO DAILY 08/04/19 09/20/19 History Oxygen Home #1 ea 08/06/19 Rx levetiracetam 500 mg PO BID #60 tab 08/06/19 09/20/19 Rx metoprolol tartrate 12.5 mg PO BID #30 tab 08/06/19 09/20/19 Rx Past Med/Surg History Medical History Aortic stenosis, severe (Chronic) Atrial fibrillation (Chronic) CHF due to valvular disease (Chronic) History of intracranial hemorrhage (Chronic) Hypertension Seizure disorder TBI (traumatic brain injury) TBI (traumatic brain injury) Surgical History H/O craniotomy Family History Other Diabetes Heart disease Social History Preferred Language: Mexican Communication Ability: Impaired Registered Physical Therapist Required: No Beliefs That Will Affect Care: Mandaen Mandaen Beliefs: Mennonite marital status: Current Living Situation: Spouse 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 occupational 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 Feels Safe at Home: Yes Smoking Status: Never smoker Hx Alcohol Use: No Hx Substance Use: No Review of Systems Review of Systems: Unobtainable due to cognitive status Physical Exam Physical Exam: General Appearance: WD/WN, vitals as above, NAD, appears acutely ill, alert and able to answer some questions with yes/no, wearing bipap mask Head: normocephalic, atraumatic Eyes: normal inspection, PERRL, conjunctivae normal, anicteric sclerae ENT: external ear and nose normal, wearing bipap mask Neck: trachea midline, no thyromegaly, normal visual inspection Respiratory: tachypneic, coarse breath sounds throughout with bibasilar rales, no wheeze or rhonchi. No accessory muscle use Cardiovascular: tachycardic, irregular rhythm, no murmur appreciated, normal peripheral pulses, trace BLE edema Chest: normal inspection of chest, no pain on palpation of chest wall Abdomen/GI: normal bowel sounds, soft, mildly distended, nontender, no hepatosplenomegaly Extremities/Musculoskelatal: no cyanosis or clubbing, extremities motor strength 5/5 Neurologic: PERRL, EOMI, accommodation nl, no face palsy, no dysarthria, CN's II-XI intact bilaterally and moves all extremities Psychiatric: Alert, not oriented Skin: no rashes, normal color, warm/dry Results & Data Vital Signs (Past 12 Hours) Vital Signs Temp Pulse Resp BP Pulse Ox 09/20/19 15:01 139 H 27 H 108/74 98 09/20/19 14:46 159 H 22 113/78 97 09/20/19 14:32 152 H 32 H 100/71 94 09/20/19 14:20 173 H 26 H 117/91 93 09/20/19 14:10 177 H 38 H 96 09/20/19 14:01 177 H 39 H 120/82 95 09/20/19 13:58 37.6 C H 194 H 38 H 109/90 96 09/20/19 13:53 90 09/20/19 13:50 79 L Laboratory Results Short CBC 09/20/19 09/20/19 09/20/19 Range/Units 13:51 13:51 13:51 WBC 18.99 H (4.8-10.8) K/uL RBC 5.72 (4.7-6.1) M/uL Hgb 16.1 (14.0-18.0) g/dL POC Hgb (14.0-18.0) g/dl Hct 49.1 (42-52) % POC Hct (42-52) % MCV 85.8 (80-100) fL MCH 28.1 (25-34) pg MCHC 32.8 (32-36) g/dL RDW Std Deviation 43.0 (36.4-46.3) fL RDW Coeff of Qing 13.7 (11.5-14.5) % Plt Count 237 (130-400) K/uL MPV 13.0 H (7.4-10.4) fL Immature Gran % (Auto) 0.3 % Neut % (Auto) 70.6 % Lymph % (Auto) 12.4 % [place] % (Auto) 16.6 % Eos % (Auto) 0.0 % Baso % (Auto) 0.1 % Immature Gran # (Auto) 0.05 H (0.00-0.02) K/uL Neut # (Auto) 13.41 H (1.4-6.5) K/uL Lymph # (Auto) 2.36 (1.2-3.4) K/uL [place] # (Auto) 3.15 H (0.11-0.59) K/uL Eos # (Auto) 0.00 (0-0.5) K/uL Baso # (Auto) 0.02 (0-0.2) K/uL Absolute Nucleated RBC 0.02 H (0-0) K/uL Nucleated RBC % (auto) 0.1 % PT 11.9 (9.0-12.0) Seconds INR 1.2 H (0.9-1.1) APTT 31.9 H (21.0-31.0) Seconds PTT Ratio 1.2 VBG pH (7.36-7.41) VBG pCO2 (38-50) mmHg VBG pO2 mmHg VBG HCO3 mmol/L VBG O2 Saturation % VBG Base Excess mEq/L Barometric Pressure mm/Hg POC Sodium (135-144) mEq/L Sodium 137 (136-145) mmol/L POC Potassium (3.3-5.0) mEq/L Potassium 4.5 (3.5-5.1) mmol/L POC Chloride (101-112) mEq/L Chloride 102 (98-107) mmol/L Carbon Dioxide 23 (21-32) mmol/L POC Total CO2 (24-31) mEq/l Anion Gap 13.0 H (3-11) POC Anion Gap (16-25) mmol/L POC BUN (7-18) mg/dl BUN 19 H (7-18) mg/dl Creatinine 1.17 (0.6-1.4) mg/dl POC Creatinine (0.6-1.3) mg/dl Est Cr Clr Drug Dosing 80.8 ml/min Est GFR ( Amer) 76.4 Est GFR (Non-Af Amer) 66.0 BUN/Creatinine Ratio 16.5 (10-20) Glucose 212 H (70-99) mg/dl POC Glucose (other) (70-99) mg/dl POC Lactic Acid Jose Ramon (0.90-1.70) mmol/L Lactate (0.4-2.0) mmol/L Calcium 9.3 (8.5-10.1) mg/dl POC Ioniz Calcium Sherlyn (1.12-1.32) mmol/l Magnesium 2.2 (1.8-2.4) mg/dl Total Bilirubin 1.3 H (0.2-1) mg/dl AST 6 L (15-37) U/L ALT 14 (12-78) U/L Alkaline Phosphatase 70 (45-117) U/L Troponin I (0-0.045) ng/ml NT-Pro-B Natriuret Pep (0-900) pg/ml Total Protein 8.1 (6.4-8.2) gm/dl Albumin 3.5 (3.4-5.0) gm/dl Globulin 4.6 H (2.5-4.0) gm/dl Albumin/Globulin Ratio 0.8 L (0.9-2) Procalcitonin (0-0.5) ng/ml 09/20/19 09/20/19 09/20/19 Range/Units 13:51 13:51 13:54 WBC (4.8-10.8) K/uL RBC (4.7-6.1) M/uL Hgb (14.0-18.0) g/dL POC Hgb (14.0-18.0) g/dl Hct (42-52) % POC Hct (42-52) % MCV (80-100) fL MCH (25-34) pg MCHC (32-36) g/dL RDW Std Deviation (36.4-46.3) fL RDW Coeff of Qing (11.5-14.5) % Plt Count (130-400) K/uL MPV (7.4-10.4) fL Immature Gran % (Auto) % Neut % (Auto) % Lymph % (Auto) % [place] % (Auto) % Eos % (Auto) % Baso % (Auto) % Immature Gran # (Auto) (0.00-0.02) K/uL Neut # (Auto) (1.4-6.5) K/uL Lymph # (Auto) (1.2-3.4) K/uL [place] # (Auto) (0.11-0.59) K/uL Eos # (Auto) (0-0.5) K/uL Baso # (Auto) (0-0.2) K/uL Absolute Nucleated RBC (0-0) K/uL Nucleated RBC % (auto) % PT (9.0-12.0) Seconds INR (0.9-1.1) APTT (21.0-31.0) Seconds PTT Ratio VBG pH (7.36-7.41) VBG pCO2 (38-50) mmHg VBG pO2 mmHg VBG HCO3 mmol/L VBG O2 Saturation % VBG Base Excess mEq/L Barometric Pressure mm/Hg POC Sodium (135-144) mEq/L Sodium (136-145) mmol/L POC Potassium (3.3-5.0) mEq/L Potassium (3.5-5.1) mmol/L POC Chloride (101-112) mEq/L Chloride (98-107) mmol/L Carbon Dioxide (21-32) mmol/L POC Total CO2 (24-31) mEq/l Anion Gap (3-11) POC Anion Gap (16-25) mmol/L POC BUN (7-18) mg/dl BUN (7-18) mg/dl Creatinine (0.6-1.4) mg/dl POC Creatinine (0.6-1.3) mg/dl Est Cr Clr Drug Dosing ml/min Est GFR ( Amer) Est GFR (Non-Af Amer) BUN/Creatinine Ratio (10-20) Glucose (70-99) mg/dl POC Glucose (other) (70-99) mg/dl POC Lactic Acid Jose Ramon 3.61 H (0.90-1.70) mmol/L Lactate (0.4-2.0) mmol/L Calcium (8.5-10.1) mg/dl POC Ioniz Calcium Sherlyn (1.12-1.32) mmol/l Magnesium (1.8-2.4) mg/dl Total Bilirubin (0.2-1) mg/dl AST (15-37) U/L ALT (12-78) U/L Alkaline Phosphatase (45-117) U/L Troponin I 0.115 H* (0-0.045) ng/ml NT-Pro-B Natriuret Pep 49703 H (0-900) pg/ml Total Protein (6.4-8.2) gm/dl Albumin (3.4-5.0) gm/dl Globulin (2.5-4.0) gm/dl Albumin/Globulin Ratio (0.9-2) Procalcitonin 0.09 (0-0.5) ng/ml 09/20/19 09/20/19 09/20/19 Range/Units 13:58 14:35 14:35 WBC (4.8-10.8) K/uL RBC (4.7-6.1) M/uL Hgb (14.0-18.0) g/dL POC Hgb 16.0 (14.0-18.0) g/dl Hct (42-52) % POC Hct 47 (42-52) % MCV (80-100) fL MCH (25-34) pg MCHC (32-36) g/dL RDW Std Deviation (36.4-46.3) fL RDW Coeff of Qing (11.5-14.5) % Plt Count (130-400) K/uL MPV (7.4-10.4) fL Immature Gran % (Auto) % Neut % (Auto) % Lymph % (Auto) % [place] % (Auto) % Eos % (Auto) % Baso % (Auto) % Immature Gran # (Auto) (0.00-0.02) K/uL Neut # (Auto) (1.4-6.5) K/uL Lymph # (Auto) (1.2-3.4) K/uL [place] # (Auto) (0.11-0.59) K/uL Eos # (Auto) (0-0.5) K/uL Baso # (Auto) (0-0.2) K/uL Absolute Nucleated RBC (0-0) K/uL Nucleated RBC % (auto) % PT (9.0-12.0) Seconds INR (0.9-1.1) APTT (21.0-31.0) Seconds PTT Ratio VBG pH 7.44 H (7.36-7.41) VBG pCO2 38 (38-50) mmHg VBG pO2 41 mmHg VBG HCO3 25 mmol/L VBG O2 Saturation 76.2 % VBG Base Excess 1.0 mEq/L Barometric Pressure 732.3 mm/Hg POC Sodium 138 (135-144) mEq/L Sodium (136-145) mmol/L POC Potassium 4.5 (3.3-5.0) mEq/L Potassium (3.5-5.1) mmol/L POC Chloride 100 L (101-112) mEq/L Chloride (98-107) mmol/L Carbon Dioxide (21-32) mmol/L POC Total CO2 25 (24-31) mEq/l Anion Gap (3-11) POC Anion Gap 17.0 (16-25) mmol/L POC BUN 18 (7-18) mg/dl BUN (7-18) mg/dl Creatinine (0.6-1.4) mg/dl POC Creatinine 1.0 (0.6-1.3) mg/dl Est Cr Clr Drug Dosing ml/min Est GFR ( Amer) Est GFR (Non-Af Amer) BUN/Creatinine Ratio (10-20) Glucose (70-99) mg/dl POC Glucose (other) 201 H (70-99) mg/dl POC Lactic Acid Jose Ramon (0.90-1.70) mmol/L Lactate 3.1 H* (0.4-2.0) mmol/L Calcium (8.5-10.1) mg/dl POC Ioniz Calcium Sherlyn 1.08 L (1.12-1.32) mmol/l Magnesium (1.8-2.4) mg/dl Total Bilirubin (0.2-1) mg/dl AST (15-37) U/L ALT (12-78) U/L Alkaline Phosphatase (45-117) U/L Troponin I (0-0.045) ng/ml NT-Pro-B Natriuret Pep (0-900) pg/ml Total Protein (6.4-8.2) gm/dl Albumin (3.4-5.0) gm/dl Globulin (2.5-4.0) gm/dl Albumin/Globulin Ratio (0.9-2) Procalcitonin (0-0.5) ng/ml BMP 09/20/19 13:51 Sodium 137 Potassium 4.5 Chloride 102 Carbon Dioxide 23 BUN 19 H Creatinine 1.17 Glucose 212 H Calcium 9.3 Cardiac Enzymes 09/20/19 Range/Units 13:51 Troponin I 0.115 H* (0-0.045) ng/ml Liver Function 09/20/19 Range/Units 13:51 Total Bilirubin 1.3 H (0.2-1) mg/dl AST 6 L (15-37) U/L ALT 14 (12-78) U/L Alkaline Phosphatase 70 (45-117) U/L Albumin 3.5 (3.4-5.0) gm/dl Diagnostic Findings CXR IMPRESSION: 1. Cardiomegaly with volume overload and congestive change. 2. Dense infiltrates in the mid to lower lungs greater on the right. This could represent asymmetric pulmonary edema versus multifocal pneumonia. 3. Small right pleural effusion. ECG Rhythm: atrial fibrillation Findings: + LBBB Change: no significant change Code Status & VTE Plan VTE Prophylaxis Plan VTE Prophylaxis will be ordered: Yes Supervising Physician Co-Signing Physician Notes HISTORY: Record reviewed. Patient interviewed and examined. Care coordinated with Ilsa Reyes PA-C. Please refer to her documentation for complete history. 63-year-old male with history of closed head injury after fall in November 2018 with associated subdural and parenchymal hemorrhages. Prolonged/complicated hospital course at [facility]. Noted to have severe aortic stenosis with reduced LVEF, but intervention was not pursued because of head injury and associated problems. Atrial fibrillation, started on anticoagulation with apixaban after recovery from closed head injury. History of wide complex [place] [facility] [place] Hospitalized at [facility] from 08/04/2019 through 08/06/2019 with new onset seizures, CHF, nocturnal hypoxia. EKG 08/04/19 showed probable AF with aberrancy at 140/min. Repeat EKG 08/06/19 showed AF at 90 / min with narrow QRS complex. Head CT did not show any acute event. Started on levetiracetam. CHF resolved quickly without receiving intravenous diuretics. Echocardiogram demonstrated severe aortic stenosis with LVEF of 45%. Seen by Cardiology. [place] that cardiac decompensation was secondary to seizure and there was no need for maintenance diuretic therapy at that time. Noted to have nocturnal hypoxia. Discharged home on home O2. Arrangements were made for an outpatient sleep study which subsequently confirmed sleep apnea. Apparently, CPAP or BiPAP has been ordered but not yet arrived. Son-in-law Jean Claude reports a cough for the past several days. Had an episode of nausea and vomiting this morning around 0330 followed by worsening tachypnea and falling oxygen saturation per pulse oximetry at home. Patient was brought to the ED for evaluation. Upon arrival to the ED, patient found to be in a wide-complex tachyarrhythmia with a ventricular rate around 200/minute. O2 saturations were 79% upon arrival. Patient received an amiodarone bolus followed by infusion with slowing of ventricular rate. BiPAP was applied with improvement of O2 sats. Patient is fairly lethargic in the ED and is unable to provide any further history. EXAM: General- adult male, acutely ill Eyes- anicteric ENT- BiPAP Lungs- scattered rhonchi, bibasilar rales, tachypneic Cardiovascular- irregular, tachycardic, no gallop appreciated; + JVD; 1+ pretibial edema Abdomen- quiet bowel sounds, soft, nontender Extremities- no cyanosis; no calf tenderness Neuro- awake, moderate lethargy Skin- mild diaphoresis DATA: Hemoglobin 16.1, white count 18,990, platelet count 237,000. Normal electrolytes, BUN 19, creatinine 1.17, glucose 212, calcium 9.3, magnesium 2.2. Total bilirubin 1.3, AST 6, ALT 14, alkaline phosphatase 70. Troponin I 0.115. proBNP 19,185. Serum lactate 3.1. Procalcitonin 0.09. Other lab studies as noted. Chest x-ray reviewed and demonstrated cardiomegaly, pulmonary edema, bibasilar infiltrates versus pulmonary edema. EKG performed at 1350 reviewed and demonstrated wide-complex tachycardia at 200 / min, slightly irregular. ASSESSMENT AND PLAN: ACUTE HYPOXIC RESPIRATORY FAILURE Respirations in 30's upon arrival to ED with O2 sat 79% (?RA). Chest x-ray showed pulmonary edema and bibasilar infiltrates. Respiratory status improved with O2 / BiPAP / IV furosemide. CHF / PULMONARY EDEMA Chest x-ray shows pulmonary edema. Pro-BNP 19,000. History of severe with LVEF 45% in July. Diurese as necessary. Check f/u CXR in a.m. Check f/u echo. WIDE-COMPLEX TACHYCARDIA Wide complex tachycardia at 200 / min upon arrival to ED. Received amio bolus / drip. Cardiology consulted. Probable AF with aberrancy. CHRONIC AF Continue metoprolol- convert to IV while NPO. Anticoagulation with IV heparin low dose without bolus until able to resume apixaban. SEVERE AORTIC STENOSIS Management thus far has been conservative because of traumatic brain injury. POSSIBLE ASPIRATION PNEUMONITIS AND/OR ASPIRATION PNEUMONIA Worsening respiratory status after episode of vomiting. Suspected aspiration- may or may not have pneumonia. Received IV vanco + piperacillin / tazo in ED which will be continued. Consider adding steroids if respiratory status does not improve. Try to avoid bronchodilators in light of arrhythmias. 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 ELEVATED LACTATE Lactate # 1 3.1, repeat 1.9. Procalcitonin normal. Elevated lactate probably secondary to hypoxia, not sepsis. NOCTURNAL HYPOXIA / SLEEP APNEA BiPAP / O2. S/P TRAUMATIC BRAIN INJURY Complicated by intracranial hemorrhages, seizure disorder, cognitive impairment. SEIZURE DISORDER Continue levetiracetam- will order parenterally until able to resume PO meds. HYPERGLYCEMIA Random blood sugar 212. Not diabetic. Follow blood sugars. Insulin coverage as necessary. Check Hgb A1C. GI PROPHYLAXIS IV famotidine. VTE PROPHYLAXIS Usually takes apixaban for AF. Now NPO. IV heparin until able to resume apixaban. Resuscitation status discussed with son-in-law Jean Claude in ED. Patient unable to participate in discussion due to cognitive disability since CHI. Jean Claude indicates that family does not want resuscitation attempted in event of cardiopulmonary arrest, but that short term intubation & mechanical ventilation should be offered if necessary for ventilatory support. Please refer to RAHEEM Reyes's documentation for discussion of other issues. Case discussed with suede brusher. (1) Respiratory failure with hypoxia Chronicity: unspecified Qualified Code(s): J96.91 - Respiratory failure, unspecified with hypoxia
[2019-09-20 16:08] LABS: Influenza A virus by PCR Neg for Influ A (Neg); Influenza B virus by PCR Neg for Influ B (Neg)
--- NOTE | 2019-09-20 16:23 | Cardiology Consultation ---
Date of Consultation September 20, 2019 Assessment & Plan (1) Atrial fibrillation with RVR: Patient past and current wide-complex tachycardia secondary to aberrant conduction of atrial fibrillation with rapid response. Patient begun appropriately on IV amiodarone with slowing and return to narrow complex conduction Will likely need additional medical therapy for rate control while treating underlying exacerbating causes likely worsening pulmonary edema with possible superimposed aspiration pneumonitis Patient with known severe aortic stenosis and past declining LV function would not be surprised to see lower LVEF on next interrogation In the past it was felt the patient would be managed medically and valve replacement would not be considered given past neurologic injuries and issues Single dose of IV furosemide given in the emergency room would likely need further diuresis as well as additional beta-krzysztof added to IV amiodarone (2) Aortic stenosis, severe: As above (3) Respiratory failure with hypoxia: Currently on BiPAP support (4) Pulmonary edema: Chest x-ray consistent with pulmonary edema History of Present Illness Reason for Consultation: Wide-complex tachycardia, atrial fibrillation with aberrant conduction Requesting Physician: Dr. Lemus Attending Physician: Dr. Lemus History of Present Illness Patient is a complex 63-year-old male known to this facility from past admissions. His medical issues include 1. Skull fracture with subdural hematoma/question intracranial hemorrhage primary status post temporal lobectomy and craniotomy 2. Seizure disorder secondary above 3. Chronic atrial fibrillation with past wide-complex tachycardia in association with rapid response 4. Severe calcific aortic stenosis 5. Sleep apnea/nocturnal hypoxia Patient presents this admission with information provided by son-in-law. Notes have him having an upper respiratory infection cough for approximately a week with worsening weakness fatigue and shortness of breath x3 days. Yesterday nearly collapsed with any activities with increasing breathlessness. Earlier this morning patient vomited while sitting in a recliner and noted worsening respiratory status after such. Home pulse oximetry demonstrated hypoxia and patient was brought for further evaluation. Patient was found to be in wide- complex tachycardia with some irregularity was treated with IV amiodarone with slowing. Chest x-ray reveals acute pulmonary edema possible pneumonia. 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) History of intracranial hemorrhage (Chronic) Hypertension Seizure disorder TBI (traumatic brain injury) TBI (traumatic brain injury) Surgical History H/O craniotomy Family History Other Diabetes Heart disease Social History Preferred Language: Nepali Communication Ability: Impaired 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: No Beliefs That Will Affect Care: Roman Catholic Roman Catholic Beliefs: Mennonite marital status: Current Living Situation: Spouse current occupational status: 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 Feels Safe at Home: Yes Smoking Status: Never smoker Hx Alcohol Use: No Hx Substance Use: No Physical Exam Constitutional: + ill appearing Wearing CPAP Neck: + thick neck Respiratory: + respiratory distress Diffuse rales Cardiovascular: Rate/Rhythm: + tachycardic and + irregularly irregular Heart Sounds: + murmur Extremities: + edema (2+) Gastrointestinal (Abdomen): normal bowel sounds, soft, nontender, no hepatosplenomegaly Results & Data Vital Signs (Past 12 Hours) Vital Signs Temp Pulse Resp BP Pulse Ox 09/20/19 16:16 127 H 24 100/77 97 09/20/19 16:15 127 H 21 94 09/20/19 16:01 134 H 24 108/83 95 09/20/19 16:00 134 H 28 H 96 09/20/19 15:45 137 H 28 H 105/80 96 09/20/19 15:42 136 H 25 H 112/83 96 09/20/19 15:31 139 H 32 H 97 09/20/19 15:30 140 H 30 H 98 09/20/19 15:16 142 H 25 H 100/88 99 09/20/19 15:15 148 H 28 H 98 09/20/19 15:02 148 H 24 97 09/20/19 15:01 139 H 27 H 108/74 98 09/20/19 14:46 159 H 22 113/78 97 09/20/19 14:32 152 H 32 H 100/71 94 09/20/19 14:20 173 H 26 H 117/91 93 09/20/19 14:10 177 H 38 H 96 09/20/19 14:01 177 H 39 H 120/82 95 09/20/19 13:58 37.6 C H 194 H 38 H 109/90 96 09/20/19 13:53 90 09/20/19 13:50 79 L Laboratory Results Laboratory Results - last 24 hr 09/20/19 09/20/19 09/20/19 13:51 13:51 13:51 WBC 18.99 H RBC 5.72 Hgb 16.1 POC Hgb Hct 49.1 POC Hct MCV 85.8 MCH 28.1 MCHC 32.8 RDW Std Deviation 43.0 RDW Coeff of Qing 13.7 Plt Count 237 MPV 13.0 H Immature Gran % (Auto) 0.3 Neut % (Auto) 70.6 Lymph % (Auto) 12.4 [place] % (Auto) 16.6 Eos % (Auto) 0.0 Baso % (Auto) 0.1 Immature Gran # (Auto) 0.05 H Neut # (Auto) 13.41 H Lymph # (Auto) 2.36 [place] # (Auto) 3.15 H Eos # (Auto) 0.00 Baso # (Auto) 0.02 Absolute Nucleated RBC 0.02 H Nucleated RBC % (auto) 0.1 PT 11.9 INR 1.2 H APTT 31.9 H PTT Ratio 1.2 VBG pH VBG pCO2 VBG pO2 VBG HCO3 VBG O2 Saturation VBG Base Excess Barometric Pressure POC Sodium Sodium 137 POC Potassium Potassium 4.5 POC Chloride Chloride 102 Carbon Dioxide 23 POC Total CO2 Anion Gap 13.0 H POC Anion Gap POC BUN BUN 19 H Creatinine 1.17 POC Creatinine Est Cr Clr Drug Dosing 80.8 Est GFR ( Amer) 76.4 Est GFR (Non-Af Amer) 66.0 BUN/Creatinine Ratio 16.5 Glucose 212 H POC Glucose (other) POC Lactic Acid Jose Ramon Lactate Calcium 9.3 POC Ioniz Calcium Sherlyn Magnesium 2.2 Total Bilirubin 1.3 H AST 6 L ALT 14 Alkaline Phosphatase 70 Troponin I NT-Pro-B Natriuret Pep Total Protein 8.1 Albumin 3.5 Globulin 4.6 H Albumin/Globulin Ratio 0.8 L Procalcitonin Influenza Type A (PCR) Influenza Type B (PCR) 09/20/19 09/20/19 09/20/19 13:51 13:51 13:54 WBC RBC Hgb POC Hgb Hct POC Hct MCV MCH MCHC RDW Std Deviation RDW Coeff of Qing Plt Count MPV Immature Gran % (Auto) Neut % (Auto) Lymph % (Auto) [place] % (Auto) Eos % (Auto) Baso % (Auto) Immature Gran # (Auto) Neut # (Auto) Lymph # (Auto) [place] # (Auto) Eos # (Auto) Baso # (Auto) Absolute Nucleated RBC Nucleated RBC % (auto) PT INR APTT PTT Ratio VBG pH VBG pCO2 VBG pO2 VBG HCO3 VBG O2 Saturation VBG Base Excess Barometric Pressure POC Sodium Sodium POC Potassium Potassium POC Chloride Chloride Carbon Dioxide POC Total CO2 Anion Gap POC Anion Gap POC BUN BUN Creatinine POC Creatinine Est Cr Clr Drug Dosing Est GFR ( Amer) Est GFR (Non-Af Amer) BUN/Creatinine Ratio Glucose POC Glucose (other) POC Lactic Acid Jose Ramon 3.61 H Lactate Calcium POC Ioniz Calcium Sherlyn Magnesium Total Bilirubin AST ALT Alkaline Phosphatase Troponin I 0.115 H* NT-Pro-B Natriuret Pep 88568 H Total Protein Albumin Globulin Albumin/Globulin Ratio Procalcitonin 0.09 Influenza Type A (PCR) Influenza Type B (PCR) 09/20/19 09/20/19 09/20/19 13:58 14:30 14:35 WBC RBC Hgb POC Hgb 16.0 Hct POC Hct 47 MCV MCH MCHC RDW Std Deviation RDW Coeff of Qing Plt Count MPV Immature Gran % (Auto) Neut % (Auto) Lymph % (Auto) [place] % (Auto) Eos % (Auto) Baso % (Auto) Immature Gran # (Auto) Neut # (Auto) Lymph # (Auto) [place] # (Auto) Eos # (Auto) Baso # (Auto) Absolute Nucleated RBC Nucleated RBC % (auto) PT INR APTT PTT Ratio VBG pH VBG pCO2 VBG pO2 VBG HCO3 VBG O2 Saturation VBG Base Excess Barometric Pressure POC Sodium 138 Sodium POC Potassium 4.5 Potassium POC Chloride 100 L Chloride Carbon Dioxide POC Total CO2 25 Anion Gap POC Anion Gap 17.0 POC BUN 18 BUN Creatinine POC Creatinine 1.0 Est Cr Clr Drug Dosing Est GFR ( Amer) Est GFR (Non-Af Amer) BUN/Creatinine Ratio Glucose POC Glucose (other) 201 H POC Lactic Acid Jose Ramon Lactate 3.1 H* Calcium POC Ioniz Calcium Sherlyn 1.08 L Magnesium Total Bilirubin AST ALT Alkaline Phosphatase Troponin I NT-Pro-B Natriuret Pep Total Protein Albumin Globulin Albumin/Globulin Ratio Procalcitonin Influenza Type A (PCR) Neg for Influ A Influenza Type B (PCR) Neg for Influ B 09/20/19 14:35 WBC RBC Hgb POC Hgb Hct POC Hct MCV MCH MCHC RDW Std Deviation RDW Coeff of Qing Plt Count MPV Immature Gran % (Auto) Neut % (Auto) Lymph % (Auto) [place] % (Auto) Eos % (Auto) Baso % (Auto) Immature Gran # (Auto) Neut # (Auto) Lymph # (Auto) [place] # (Auto) Eos # (Auto) Baso # (Auto) Absolute Nucleated RBC Nucleated RBC % (auto) PT INR APTT PTT Ratio VBG pH 7.44 H VBG pCO2 38 VBG pO2 41 VBG HCO3 25 VBG O2 Saturation 76.2 VBG Base Excess 1.0 Barometric Pressure 732.3 POC Sodium Sodium POC Potassium Potassium POC Chloride Chloride Carbon Dioxide POC Total CO2 Anion Gap POC Anion Gap POC BUN BUN Creatinine POC Creatinine Est Cr Clr Drug Dosing Est GFR ( Amer) Est GFR (Non-Af Amer) BUN/Creatinine Ratio Glucose POC Glucose (other) POC Lactic Acid Jose Ramon Lactate Calcium POC Ioniz Calcium Sherlyn Magnesium Total Bilirubin AST ALT Alkaline Phosphatase Troponin I NT-Pro-B Natriuret Pep Total Protein Albumin Globulin Albumin/Globulin Ratio Procalcitonin Influenza Type A (PCR) Influenza Type B (PCR) (1) Respiratory failure with hypoxia Chronicity: unspecified Qualified Code(s): J96.91 - Respiratory failure, unspecified with hypoxia
--- NOTE | 2019-09-20 16:26 | Communication Note ---
Date of Service: September 20, 2019 HISTORY: Record reviewed. Patient interviewed and examined. Care coordinated with Ilsa Reyes PA-C. Please refer to her documentation for complete history. 63-year-old male with history of closed head injury after fall in November 2018 with associated subdural and parenchymal hemorrhages. Prolonged/complicated hospital course at [facility]. Noted to have severe aortic stenosis with reduced LVEF, but intervention was not pursued because of head injury and associated problems. Atrial fibrillation, started on anticoagulation with apixaban after recovery from closed head injury. [place] of wide complex tachy[place] [facility] Hospitalized at [facility] from 08/04/2019 through 08/06/2019 with new onset seizures, CHF, nocturnal hypoxia. EKG 08/04/19 showed probable AF with aberrancy at 140/min. Repeat EKG 08/06/19 showed AF at 90 / min with narrow QRS complex. Head CT did not show any acute event. Started on levetiracetam. CHF resolved quickly without receiving intravenous diuretics. Echocardiogram demonstrated severe aortic stenosis with LVEF of 45%. Seen by Cardiology. [place] that cardiac decompensation was secondary to seizure and there was no need for maintenance diuretic therapy at that time. Noted to have nocturnal hypoxia. Discharged home on home O2. Arrangements were made for an outpatient sleep study which subsequently confirmed sleep apnea. Apparently, CPAP or BiPAP has been ordered but not yet arrived. Son-in-law Jean Claude reports a cough for the past several days. Had an episode of nausea and vomiting this morning around 0330 followed by worsening tachypnea and falling oxygen saturation per pulse oximetry at home. Patient was brought to the ED for evaluation. Upon arrival to the ED, patient found to be in a wide-complex tachyarrhythmia with a ventricular rate around 200/minute. O2 saturations were 79% upon arrival. Patient received an amiodarone bolus followed by infusion with slowing of ventricular rate. BiPAP was applied with improvement of O2 sats. Patient is fairly lethargic in the ED and is unable to provide any further history. EXAM: General- adult male, acutely ill Eyes- anicteric ENT- BiPAP Lungs- scattered rhonchi, bibasilar rales, tachypneic Cardiovascular- irregular, tachycardic, no gallop appreciated; + JVD; 1+ pretibial edema Abdomen- quiet bowel sounds, soft, nontender Extremities- no cyanosis; no calf tenderness Neuro- awake, moderate lethargy Skin- mild diaphoresis DATA: Hemoglobin 16.1, white count 18,990, platelet count 237,000. Normal electrolytes, BUN 19, creatinine 1.17, glucose 212, calcium 9.3, magnesium 2.2. Total bilirubin 1.3, AST 6, ALT 14, alkaline phosphatase 70. Troponin I 0.115. proBNP 19,185. Serum lactate 3.1. Procalcitonin 0.09. Other lab studies as noted. Chest x-ray reviewed and demonstrated cardiomegaly, pulmonary edema, bibasilar infiltrates versus pulmonary edema. EKG performed at 1350 reviewed and demonstrated wide-complex tachycardia at 200 / min, slightly irregular. ASSESSMENT AND PLAN: ACUTE HYPOXIC RESPIRATORY FAILURE Respirations in 30's upon arrival to ED with O2 sat 79% (?RA). Chest x-ray showed pulmonary edema and bibasilar infiltrates. Respiratory status improved with O2 / BiPAP / IV furosemide. CHF / PULMONARY EDEMA Chest x-ray shows pulmonary edema. Pro-BNP 19,000. History of severe with LVEF 45% in July. Diurese as necessary. Check f/u CXR in a.m. Check f/u echo. WIDE-COMPLEX TACHYCARDIA Wide complex tachycardia at 200 / min upon arrival to ED. Received amio bolus / drip. Cardiology consulted. Probable AF with aberrancy. CHRONIC AF Continue metoprolol- convert to IV while NPO. Anticoagulation with IV heparin low dose without bolus until able to resume apix aban. SEVERE AORTIC STENOSIS Management thus far has been conservative because of traumatic brain injury. POSSIBLE ASPIRATION PNEUMONITIS AND/OR ASPIRATION PNEUMONIA Worsening respiratory status after episode of vomiting. Suspected aspiration- may or may not have pneumonia. Received IV vanco + piperacillin / tazo in ED which will be continued. Consider adding steroids if respiratory status does not improve. Try to avoid bronchodilators in light of arrhythmias. ADMITTING MANAGER swallowing eval. ELEVATED LACTATE Lactate # 1 3.1, repeat 1.9. Procalcitonin normal. Elevated lactate probably secondary to hypoxia, not sepsis. NOCTURNAL HYPOXIA / SLEEP APNEA BiPAP / O2. S/P TRAUMATIC BRAIN INJURY Complicated by intracranial hemorrhages, seizure disorder, cognitive impairment. SEIZURE DISORDER Continue levetiracetam- will order parenterally until able to resume PO meds. HYPERGLYCEMIA Random blood sugar 212. Not diabetic. Follow blood sugars. Insulin coverage as necessary. Check Hgb A1C. GI PROPHYLAXIS IV famotidine. VTE PROPHYLAXIS Usually takes apixaban for AF. Now NPO. IV heparin until able to resume apixaban. Resuscitation status discussed with son-in-law Jean Claude in ED. Patient unable to participate in discussion due to cognitive disability since CHI. Jean Claude indicates that family does not want resuscitation attempted in event of cardiopulmonary arrest, but that short term intubation & mechanical ventilation should be offered if necessary for ventilatory support. Please refer to RAHEEM Reyes's documentation for discussion of other issues. Case discussed with psychology lecturer.
[2019-09-20] MEDS ORDERED: ICU PROTOCOL FOR HYPERGLYCEMIA PRN ×2 (16:42→17:39)
[2019-09-20] MEDS ORDERED: Heparin IV Low Dose *NO* Bolus IV ONE (17:21)
[2019-09-20] MEDS ORDERED: HEPARIN 25000 UNIT/500 ML D5W IV ONE (17:32)
[2019-09-20] MEDS: HEPARIN SODIUM/DEXTROSE 25,000 UNITS/500 ML BAG IV SCH (17:43)
[2019-09-20] MEDS ORDERED: FUROSEMIDE 40 MG in SYRINGE 0 ML IV ONE (18:15)
--- NOTE | 2019-09-20 18:46 | Emergency Department Note ---
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 BiPAP. I did speak with the hospitalist again at the bedside. Patient was subsequently admitted to the intensive care unit. Impression & Plan Respiratory failure with hypoxia, CHF (congestive heart failure), Atrial fibrillation with RVR, Sepsis, Pneumonia Discharge Plan Visit Data *Final* Discharge Date/Time: 09/20/19 16:47 Chief Complaint: Respiratory Problems Stated Complaint: OXYGEN DROPPING - RESPITORY ED Provider: Calvin Beckford Discharge Problem: Respiratory failure with hypoxia, CHF (congestive heart failure), Atrial fibrillation with RVR, Sepsis, Pneumonia Patient Disposition: Admitted As Inpatient Discharge Instructions Interventions: ED Discharge Assessment Last Done: 09/20/19 16:47 Discharge Problem: Respiratory failure with hypoxia Qualifiers: Chronicity: unspecified Qualified Code(s): J96.91 - Respiratory failure, unspecified with hypoxia CHF (congestive heart failure) Qualifiers: Heart failure type: diastolic Heart failure chronicity: acute Qualified Code(s): I50.31 - Acute diastolic (congestive) heart failure Sepsis Qualifiers: Sepsis type: sepsis due to unspecified organism Sepsis acute organ dysfunction status: unspecified Qualified Code(s): A41.9 - Sepsis, unspecified organism Pneumonia Qualifiers: Pneumonia type: due to unspecified organism Laterality: bilateral Lung location: unspecified part of lung Qualified Code(s): J18.9 - Pneumonia, unspecified organism The scribe's documentation has been prepared under my direction and personally reviewed by me in its entirety. I confirm that the note above accurately reflects all work, treatment, procedures, and medical decision making performed by me.
--- NOTE | 2019-09-20 19:07 | Critical Care Consultation ---
Date of Consultation September 20, 2019 Assessment & Plan (1) Admitted to intensive care unit: Reason Critically Ill: 63-year-old male with acute hypoxic respiratory failure in the setting of CHF exacerbation plus/minus aspiration event requiring close hemodynamic monitoring and monitoring for need for emergent airway intervention given tenuous status. NEURO - * CAM ICU: Unable to assess. * History of hemorrhagic CVA status post traumatic event: * Answer simple questions yes/no. * No focal neurological deficits on exam. CARDIAC/VASCULAR - * Wide-complex tachycardia felt to be A. fib with RVR. * Continue amiodarone as prior. * PRN metoprolol. * Aim for slower heart rate to facility intracardiac filling in the patient with known severe aortic stenosis. * Continue with diuresis with pulmonary edema likely secondary to above. * Appreciate cardiology consultation. * A. fib * Eliquis at home. Agree with heparin drip at this time. * Continue amiodarone. * Maximize electrolytes. * Monitor on telemetry. RESPIRATORY - * Acute hypoxic respiratory failure: * Related to pulmonary edema and possible aspiration event. * Actively diuresing. * Positive pressure ventilatory techniques. * Zosyn for aspiration coverage. * Intubate if necessary. GI/NUTRITION - * N.p.o. secondary to concerns for recent aspiration. * Prophylaxis: Famotidine RENAL/LYTES - * No significant electrolyte derangements. * Monitor closely for imbalances status post aggressive diuresis. - * Wisdom in place - Strict I&Os. ENDO - * No h/o DM or Thyroid Dz * BSGs per unit protocol. ISS --> gtt per unit policy. HEME - * Stable H&H ID - * Aspiration event: * Agree with IV Zosyn. * f/u CXR in AM * No need for Vanc * Trend Lactate. LINES/IV ACCESS - * PIVs x2 * Wisdom DVT PROPHYLAXIS - * Heparin gtt * SCDs I have personally spent 30 minutes of critical care time in the direct management of this patient. This is a life/limb threatening event. This includes time spent evaluating patient, direct bedside care, chart review, placing orders, interpretation of diagnostic studies, discussion with consultants, patient, and family members, as well as other required patient management activities. This time is exclusive of all separately billable procedures, and teaching time and separate from and in addition to any other critical care service time. Thank you for allowing us to participate in the care of this patient. Please refer to my attending physician's documentation for any further recommendations. (2) Atrial fibrillation with RVR: (3) Pneumonia: (4) CHF due to valvular disease: (5) Aspiration into airway: (6) Seizure disorder: (7) TBI (traumatic brain injury): (8) Pulmonary edema: (9) Respiratory failure with hypoxia: (10) CHF (congestive heart failure): Supervising Physician Co-Signing Physician Notes I was made aware of this patient via telephone, please see my corresponding notes on 09/21/2019 for my evaluation. History of Present Illness Attending Physician: David Lemus MD History of Present Illness Patient is a 63-year-old male with a significant past medical history of trauma tic brain injury with subdural hemorrhage status post craniotomy at [facility] in November 2018 who was found to have severe aortic stenosis during initial hospitalization and question contribution to his initial fall/syncopal episode. Patient had extended hospital stay followed by rehabilitation stay as well. He had been doing well and was scheduled for a craniotomy revision in March 2019. Intraoperatively, the patient went into a wide complex tachycardia and essentially converted to a narrow complex eventually. This happened again during her recent hospitalization in July 08 at this facility. During that time, he was noted to have new onset of seizures as well. He has been on Keppra since. Patient is recently placed on Eliquis secondary to A. fib. Over the last few days he has had a cough as well as sweats. Earlier this morning he had episodes of vomiting with concern for aspiration. He was hypoxic with saturations in the 70s at home. Upon arrival in the emergency department, the patient was found to be in a wide-complex tachycardia and accelerated rate with concern for V. tach. Ultimately, it was felt the patient was in a wide-complex A. fib pattern consistent with previous presentation. He received amiodarone as well as Lasix in the emergency department. He was placed on BiPAP. This did result in great improvement. Patient was provided vancomycin and Zosyn with concerns for aspiration event. Upon arrival in the ICU, the patient is awake and alert. He is minimally communicative secondary to TBI. He offers no complaints otherwise at this time. Family is not present at the time of interview which limits history of present illness. Allergies Allergy/AdvReac Type Severity Reaction Status Date / Time No Known Allergies Allergy Unverified 08/04/19 03:44 Home Medications Home Medications Medication Instructions Recorded Confirmed Type Eliquis 5 mg PO BID 08/04/19 09/20/19 History amlodipine 5 mg PO DAILY 08/04/19 09/20/19 History Oxygen Home #1 ea 08/06/19 Rx levetiracetam 500 mg PO BID #60 tab 08/06/19 09/20/19 Rx metoprolol tartrate 12.5 mg PO BID #30 tab 08/06/19 09/20/19 Rx Patient History Medical History Aortic stenosis, severe (Chronic) Atrial fibrillation (Chronic) CHF due to valvular disease (Chronic) History of intracranial hemorrhage (Chronic) Hypertension Seizure disorder TBI (traumatic brain injury) TBI (traumatic brain injury) Surgical History H/O craniotomy Family History Other Diabetes Heart disease Social History Preferred Language: Tajik 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 GENERAL - 63-year-old male appearing his stated age who is in no acute distress. HEAD - NC/AT. EYES - PERRL with EOMI bilaterally. Sclera anicteric. EARS - No deformities of external structures noted on gross examination bilaterally. NOSE - Midline and without cyanosis. MOUTH/OROPHARYNX - Without perioral cyanosis. Buccal mucosa pink and moist and without leukoplakia. NECK - Neck with FROM. LUNGS - Chest wall symmetric without accessory muscle use, intercostals retractions, or central cyanosis. Normal vesicular breath sounds CTA B/L. No wheezes, rales, or rhonchi appreciated. CARDIAC - RRR with S1/S2. No murmur, rubs, or gallops appreciated. No reproducible tenderness to palpation appreciated over the anterior chest wall. ABDOMEN - Abdominal contour obese without pulsations or visible masses. BS normoactive all four quadrants. No tenderness, palpable masses, hepatosplenomegaly, or ascites noted. EXTREMITIES - No clubbing or peripheral cyanosis. No pretibial edema present. +3/5 radial and dorsalis pedis pulses palpated throughout. +4/5 strength noted in UE/LE bilaterally. NEUROLOGIC - Cranial nerves II through XII grossly intact. Sensory intact to light touch throughout. PSYCH -alert and oriented, however minimally communicative secondary to h/o hemorrhagic CVA. Results & Data Vital Signs (Past 12 Hours) Vital Signs Temp Pulse Pulse Resp BP BP Pulse Ox 09/20/19 16:47 36.7 C 123 H 22 97/69 L 100 09/20/19 16:43 133 H 26 H 95 09/20/19 16:16 127 H 24 100/77 97 09/20/19 16:15 127 H 21 94 09/20/19 16:01 134 H 24 108/83 95 09/20/19 16:00 134 H 28 H 96 09/20/19 15:45 137 H 28 H 105/80 96 09/20/19 15:42 136 H 25 H 112/83 96 09/20/19 15:31 139 H 32 H 97 09/20/19 15:30 140 H 30 H 98 09/20/19 15:16 142 H 25 H 100/88 99 09/20/19 15:15 148 H 28 H 98 09/20/19 15:02 148 H 24 97 09/20/19 15:01 139 H 27 H 108/74 98 09/20/19 14:46 159 H 22 113/78 97 09/20/19 14:32 152 H 32 H 100/71 94 09/20/19 14:20 173 H 26 H 117/91 93 09/20/19 14:10 177 H 38 H 96 09/20/19 14:01 177 H 39 H 120/82 95 09/20/19 13:58 37.6 C H 194 H 38 H 109/90 96 09/20/19 13:53 90 09/20/19 13:50 79 L Coding Level of Care Code Critical Care 1st 30-74 mins Diagnoses Admitted to intensive care unit Z78.9 Atrial fibrillation with RVR I48.91 Pneumonia J18.9 Laterality: bilateral Lung location: unspecified part of lung Pneumonia type: due to unspecified organism CHF due to valvular disease I50.9; I38 Aspiration into airway T17.908A Seizure disorder G40.909 TBI (traumatic brain injury) S06.9X9A Pulmonary edema J81.1 Respiratory failure with hypoxia J96.91 Chronicity: unspecified CHF (congestive heart failure) I50.31 Heart failure chronicity: acute Heart failure type: diastolic Time Spent (min) 30 (1) Respiratory failure with hypoxia Chronicity: unspecified Qualified Code(s): J96.91 - Respiratory failure, unspecified with hypoxia (2) CHF (congestive heart failure) Heart failure chronicity: acute Heart failure type: diastolic Qualified Code(s): I50.31 - Acute diastolic (congestive) heart failure (3) Pneumonia Laterality: bilateral Lung location: unspecified part of lung Pneumonia type: due to unspecified organism Qualified Code(s): J18.9 - Pneumonia, unspecified organism
[2019-09-20] MEDS ORDERED: PNEUMOCOCCAL Polysaccharide Vaccine 25mcg/0.5mL vial/Syr IM ONE (20:00)
[2019-09-20] MEDS: AMIODARONE / D5W 360 MG/200 ML BAG IV SCH (20:12)
[2019-09-20] MEDS: PIPERACILLIN/TAZOBACTAM 4.5 GM in DEXTROSE 5% 100 ML IV SCH (20:12)
[2019-09-20] MEDS: FAMOTIDINE 20 MG in SYRINGE 3 ML IV SCH (20:13)
[2019-09-20] MEDS: METOPROLOL TARTRATE 1 MG/ML VIAL IV SCH (20:22)
[2019-09-21 00:36] LABS: Partial Thromboplastin Ratio 1.4
[2019-09-21 00:57] LABS: Potassium 3.5 mmol/L (3.5-5.1)
[2019-09-21] MEDS ORDERED: HEPARIN IV BOLUS 4,500 UNITS in SYRINGE 0 ML IV ONE ×2 (01:07→17:45)
[2019-09-21 01:09] LABS: Troponin I 1.72 ng/ml (0-0.045)
[2019-09-21] MEDS: METOPROLOL TARTRATE 1 MG/ML VIAL IV SCH ×2 (01:25→03:43)
[2019-09-21] MEDS: POTASSIUM CHLORIDE / WTR 10 MEQ/100 ML PLCT IV SCH ×7 (01:33→23:22)
[2019-09-21] MEDS: PIPERACILLIN/TAZOBACTAM 4.5 GM in DEXTROSE 5% 100 ML IV SCH (04:12)
[2019-09-21 05:01] LABS: Albumin Level 2.5 gm/dl (3.4-5.0); BUN Creatinine Ratio 24.7 (10-20); Bilirubin Direct 0.1 mg/dl (0-0.2); Calcium 7.7 mg/dl (8.5-10.1); Creatinine Clr Calc Pharmacy 116.8 ml/min; Est GFR (African American) 113.2; Est GFR (Non-African American) 97.6; Magnesium 2.1 mg/dl (1.8-2.4); Potassium 3.4 mmol/L (3.5-5.1)
[2019-09-21 05:08] LABS: Albumin Globulin Ratio 0.7 (0.9-2); Bilirubin,Total 0.6 mg/dl (0.2-1); Globulin 3.7 gm/dl (2.5-4.0); Phosphorus 3.5 mg/dl (2.5-4.9); Total Protein 6.2 gm/dl (6.4-8.2); Troponin I 1.45 ng/ml (0-0.045)
[2019-09-21 05:13] LABS: Basophils # (auto) 0.03 K/uL (0-0.2); Basophils % (auto) 0.3 %; Eosinophils # (auto) 0.02 K/uL (0-0.5); Eosinophils % (auto) 0.2 %; Hematocrit (blood only) 40.1 % (42-52); Hemoglobin 13.1 g/dL (14.0-18.0); Immature Granulocytes # (auto) 0.03 K/uL (0.00-0.02); Immature Granulocytes % (auto) 0.3 %; Lymphocytes # (auto) 2.17 K/uL (1.2-3.4); Lymphocytes % (auto) 18.9 %; Mean Corpuscular Hemoglobin 28.4 pg (25-34); Mean Corpuscular Hgb Conc 32.7 g/dL (32-36); Mean Corpuscular Volume 86.8 fL (80-100); Mean Platelet Volume 12.7 fL (7.4-10.4); Monocytes # (auto) 2.15 K/uL (0.11-0.59); Monocytes % (auto) 18.7 %; Neutrophils # (auto) 7.11 K/uL (1.4-6.5); Neutrophils % (auto) 61.6 %; Platelet Count 191 K/uL (130-400); RDW Coefficient of Variation 13.6 % (11.5-14.5); RDW Standard Deviation 43.8 fL (36.4-46.3); Red Blood Count 4.62 M/uL (4.7-6.1); White Blood Count 11.51 K/uL (4.8-10.8)
[2019-09-21 06:58] LABS: Estimated Average Glucose 114 mg/dl; Hemoglobin A1C 5.6 % (4.5-5.6)
[2019-09-21] MEDS: AMIODARONE / D5W 360 MG/200 ML BAG IV SCH ×2 (07:29→18:09)
[2019-09-21] MEDS: FAMOTIDINE 20 MG in SYRINGE 3 ML IV SCH ×2 (07:30→21:51)
--- NOTE | 2019-09-21 07:36 | XRay Report ---
XR chest 1V portable HISTORY: 63 years-old Male CHF follow-up study in a patient with congestive heart failure COMPARISON: Chest radiograph 09/20/2019 TECHNIQUE: Portable AP view of the chest FINDINGS: Cardiac silhouette is enlarged, unchanged. Pulmonary vascular congestion with mildly improved pulmona ry edema. Minimal bibasilar atelectasis. No definite evidence of pneumonia. No pneumothorax. Blunting of the costophrenic angles suggests trace pleural effusions. Degenerative changes of the shoulders a nd spine. IMPRESSION: 1. Cardiomegaly with mildly improved pulmonary edema. 2. Trace pleural effusions. The above report was generated using voice recognition software. It may contain grammatical, syntax o r spelling errors. Electronically signed by: Guicho Mitchell M.D. 09/21/2019 7:34 AM
--- NOTE | 2019-09-21 07:38 | Critical Care Progress Note ---
Date of Service September 21, 2019 Assessment & Plan (1) Admitted to intensive care unit: Reason Critically Ill: 63-year-old male with acute hypoxic respiratory failure in the setting of CHF exacerbation plus/minus aspiration event requiring close hemodynamic monitoring and monitoring for need for emergent airway intervention given tenuous status. NEURO - [facility] ICU: Unable to assess. History of hemorrhagic CVA status post traumatic event: -Answer simple questions yes/no. -No focal neurological deficits on exam. CARDIAC/VASCULAR - Wide-complex tachycardia felt to be A. fib with RVR. Aim for slower heart rate to facility intracardiac filling in the patient with known severe aortic maribeth nosis. -Continue amiodarone as prior. -PRN metoprolol -Continue with diuresis with pulmonary edema likely secondary to above. -Cardiology consulted following the recommendations -We will need medical therapy for rate control -Known severe aortic stenosis and severe left ventricular dysfunction by echo -Needs further diuresis -Chest x-ray consistent with pulmonary edema A. fib -Eliquis at home. Agree with heparin drip at this time. -Continue amiodarone. -Maximize electrolytes. K greater than 4 mag greater than 2 -Monitor on telemetry. RESPIRATORY - Acute hypoxic respiratory failure: Related to pulmonary edema and possible aspiration event. -Actively diuresing. -Positive pressure ventilatory techniques. -Zosyn for aspiration coverage. -No intubation DNR/DNI GI/NUTRITION - Evaluated by speech and swallow today they recommend aspiration precautions, alternate solids and liquids, supervised meals, fully alert and upright, single small bites, small sips, slow rate Prophylaxis: Famotidine RENAL/LYTES - No significant electrolyte derangements. Monitor closely for imbalances status post aggressive diuresis. - Wisdom in place - Strict I&Os. ENDO - No h/o DM or Thyroid Dz BSGs per unit protocol. ISS --> gtt per unit policy. HEME - Stable H&H ID - Aspiration event: -Agree with IV Zosyn. -Chest x-ray this morning consistent with pulmonary edema -Trend Lactate. LINES/IV ACCESS - PIVs x2 Wisdom DVT PROPHYLAXIS - Heparin gtt SCDs Thank you for allowing us to participate in the care of this patient. Please refer to my attending physician's documentation for any further recommendations. (2) Atrial fibrillation with RVR: (3) Pneumonia: (4) CHF due to valvular disease: (5) Aspiration into airway: (6) Seizure disorder: (7) TBI (traumatic brain injury): (8) Pulmonary edema: (9) Respiratory failure with hypoxia: (10) CHF (congestive heart failure): Supervising Physician Co-Signing Physician Notes Dr. Reyes was resident physician during care of patient. I separately evaluated patient for thomas portions of the history and the exam. I was present during the critical portion of medical decision making, and I discussed the case with the resident. I generally agree with the findings and plan. Improved heart rate, diuresed, will continue to diurese the patient to some degree, speech consult; however, if the patient is aspirating given his traumatic brain injury not sure what improvement we could anticipate and likely need to consider long-term medications. Will benefit from case management and streamline medications to follow-up with primary [facility]. Stable for downgrade out of ICU to telemetry. Clinical update 12:00: Discussed with patient's and daughter, they have recently relocated from [place] in the past week do not have a primary care doctor in the immediate area. Discussed briefly risks benefits of systemic anticoagulation versus excepting risk of possible stroke given that the patient is somewhat prone to falls as well as long-term outcome given continued decline in cardiovascular reserve. Discussed with Dr. Lemus who will be placing transfer orders. Subjective Denies chest pain, denies shortness of breath Review of Systems Review of Systems: No chest pain no shortness of breath Physical Exam Physical Exam: General: Alert. nontoxic. Skin: Warm, dry, Head: Atraumatic Ears, nose, mouth and throat: airway patent Cardiovascular: Normal peripheral perfusion Respiratory: no respiratory distress Gastrointestinal: Non distended Musculoskeletal: No deformity Results & Data Vital Signs (Past 12 Hours) Vital Signs Temp Pulse Pulse Resp BP Pulse Ox 09/21/19 07:30 93 H 20 95 09/21/19 06:10 95 H 13 100/80 96 09/21/19 05:40 91 H 18 108/70 98 09/21/19 05:09 84 20 97/76 L 97 09/21/19 04:39 90 18 93/75 L 97 09/21/19 04:10 36.8 C 93 H 18 101/78 95 09/21/19 03:43 82 97/68 L 09/21/19 03:39 92 H 18 97/68 L 98 09/21/19 03:35 87 21 98 09/21/19 03:09 92 H 19 95/74 L 97 09/21/19 02:39 87 19 94/72 L 97 09/21/19 02:09 91 H 20 95/76 L 97 09/21/19 01:39 86 18 87/66 L 96 09/21/19 01:37 102 H 17 88/65 L 96 09/21/19 01:36 92 H 16 88/68 L 96 09/21/19 01:25 93 H 103/76 09/21/19 01:15 92 H 19 96 09/21/19 01:09 84 20 103/76 95 09/21/19 00:40 92 H 20 106/70 97 09/21/19 00:09 37.0 C 96 H 22 116/79 94 09/20/19 23:39 89 20 97/76 L 98 09/20/19 23:09 94 H 14 92/69 L 99 09/20/19 22:39 97 H 18 94/67 L 98 09/20/19 22:24 94 H 18 88/66 L 97 09/20/19 22:09 95 H 19 102/75 97 09/20/19 22:08 95 H 19 96 09/20/19 21:54 100 H 22 98/76 L 97 09/20/19 21:39 87 19 102/76 98 09/20/19 21:24 90 25 H 91/69 L 98 09/20/19 21:09 91 H 20 100/75 98 09/20/19 20:22 109 H 102/62 09/20/19 20:10 37.2 C 103 H 22 100/77 97 09/20/19 19:54 117 H 20 127/54 L 97 09/20/19 19:39 109 H 22 105/73 97 Laboratory Results 09/21/19 09/21/19 09/21/19 Range/Units 11:00 09:21 07:54 WBC (4.8-10.8) K/uL RBC (4.7-6.1) M/uL Hgb (14.0-18.0) g/dL POC Hgb (14.0-18.0) g/dl Hct (42-52) % POC Hct (42-52) % MCV (80-100) fL MCH (25-34) pg MCHC (32-36) g/dL RDW Std Deviation (36.4-46.3) fL RDW Coeff of Qing (11.5-14.5) % Plt Count (130-400) K/uL MPV (7.4-10.4) fL Immature Gran % (Auto) % Neut % (Auto) % Lymph % (Auto) % Dickey % (Auto) % Eos % (Auto) % Baso % (Auto) % Immature Gran # (Auto) (0.00-0.02) K/uL Neut # (Auto) (1.4-6.5) K/uL Lymph # (Auto) (1.2-3.4) K/uL Dickey # (Auto) (0.11-0.59) K/uL Eos # (Auto) (0-0.5) K/uL Baso # (Auto) (0-0.2) K/uL Absolute Nucleated RBC (0-0) K/uL Nucleated RBC % (auto) % PT (9.0-12.0) Seconds INR (0.9-1.1) APTT 42.7 H (21.0-31.0) Seconds PTT Ratio 1.6 VBG pH (7.36-7.41) VBG pCO2 (38-50) mmHg VBG pO2 mmHg VBG HCO3 mmol/L VBG O2 Saturation % VBG Base Excess mEq/L Barometric Pressure mm/Hg POC Sodium (135-144) mEq/L Sodium (136-145) mmol/L POC Potassium (3.3-5.0) mEq/L Potassium (3.5-5.1) mmol/L POC Chloride (101-112) mEq/L Chloride (98-107) mmol/L Carbon Dioxide (21-32) mmol/L POC Total CO2 (24-31) mEq/l Anion Gap (3-11) POC Anion Gap (16-25) mmol/L POC BUN (7-18) mg/dl BUN (7-18) mg/dl Creatinine (0.6-1.4) mg/dl POC Creatinine (0.6-1.3) mg/dl Est Cr Clr Drug Dosing ml/min Est GFR ( Amer) Est GFR (Non-Af Amer) BUN/Creatinine Ratio (10-20) Glucose (70-99) mg/dl POC Glucose 111 H (70-99) POC Glucose (other) (70-99) mg/dl Estimat Average Glucose mg/dl Hemoglobin A1c (4.5-5.6) % POC Lactic Acid Jose Ramon (0.90-1.70) mmol/L Lactate (0.4-2.0) mmol/L Calcium (8.5-10.1) mg/dl POC Ioniz Calcium Sherlyn (1.12-1.32) mmol/l Phosphorus (2.5-4.9) mg/dl Magnesium (1.8-2.4) mg/dl Total Bilirubin (0.2-1) mg/dl Direct Bilirubin (0-0.2) mg/dl AST (15-37) U/L ALT (12-78) U/L Alkaline Phosphatase (45-117) U/L Troponin I 1.100 H* (0-0.045) ng/ml NT-Pro-B Natriuret Pep (0-900) pg/ml Total Protein (6.4-8.2) gm/dl Albumin (3.4-5.0) gm/dl Globulin (2.5-4.0) gm/dl Albumin/Globulin Ratio (0.9-2) Procalcitonin (0-0.5) ng/ml Nasal Screen MRSA (PCR) (Negative) Influenza Type A (PCR) (Neg) Influenza Type B (PCR) (Neg) 09/21/19 09/21/19 09/21/19 Range/Units 04:09 04:09 04:09 WBC 11.51 H (4.8-10.8) K/uL RBC 4.62 L (4.7-6.1) M/uL Hgb 13.1 L D (14.0-18.0) g/dL POC Hgb (14.0-18.0) g/dl Hct 40.1 L (42-52) % POC Hct (42-52) % MCV 86.8 (80-100) fL MCH 28.4 (25-34) pg MCHC 32.7 (32-36) g/dL RDW Std Deviation 43.8 (36.4-46.3) fL RDW Coeff of Qing 13.6 (11.5-14.5) % Plt Count 191 (130-400) K/uL MPV 12.7 H (7.4-10.4) fL Immature Gran % (Auto) 0.3 % Neut % (Auto) 61.6 % Lymph % (Auto) 18.9 % Dickey % (Auto) 18.7 % Eos % (Auto) 0.2 % Baso % (Auto) 0.3 % Immature Gran # (Auto) 0.03 H (0.00-0.02) K/uL Neut # (Auto) 7.11 H (1.4-6.5) K/uL Lymph # (Auto) 2.17 (1.2-3.4) K/uL Dickey # (Auto) 2.15 H (0.11-0.59) K/uL Eos # (Auto) 0.02 (0-0.5) K/uL Baso # (Auto) 0.03 (0-0.2) K/uL Absolute Nucleated RBC (0-0) K/uL Nucleated RBC % (auto) % PT (9.0-12.0) Seconds INR (0.9-1.1) APTT (21.0-31.0) Seconds PTT Ratio VBG pH (7.36-7.41) VBG pCO2 (38-50) mmHg VBG pO2 mmHg VBG HCO3 mmol/L VBG O2 Saturation % VBG Base Excess mEq/L Barometric Pressure mm/Hg POC Sodium (135-144) mEq/L Sodium 140 (136-145) mmol/L POC Potassium (3.3-5.0) mEq/L Potassium 3.4 L (3.5-5.1) mmol/L POC Chloride (101-112) mEq/L Chloride 108 H (98-107) mmol/L Carbon Dioxide 27 (21-32) mmol/L POC Total CO2 (24-31) mEq/l Anion Gap 5.0 (3-11) POC Anion Gap (16-25) mmol/L POC BUN (7-18) mg/dl BUN 19 H (7-18) mg/dl Creatinine 0.75 D (0.6-1.4) mg/dl POC Creatinine (0.6-1.3) mg/dl Est Cr Clr Drug Dosing 116.8 ml/min Est GFR ( Amer) 113.2 Est GFR (Non-Af Amer) 97.6 BUN/Creatinine Ratio 24.7 H (10-20) Glucose 121 H (70-99) mg/dl POC Glucose (70-99) POC Glucose (other) (70-99) mg/dl Estimat Average Glucose 114 mg/dl Hemoglobin A1c 5.6 (4.5-5.6) % POC Lactic Acid Jose Ramon (0.90-1.70) mmol/L Lactate (0.4-2.0) mmol/L Calcium 7.7 L D (8.5-10.1) mg/dl POC Ioniz Calcium Sherlyn (1.12-1.32) mmol/l Phosphorus 3.5 (2.5-4.9) mg/dl Magnesium 2.1 (1.8-2.4) mg/dl Total Bilirubin 0.6 D (0.2-1) mg/dl Direct Bilirubin 0.1 (0-0.2) mg/dl AST 13 L (15-37) U/L ALT 10 L (12-78) U/L Alkaline Phosphatase 47 (45-117) U/L Troponin I 1.450 H* (0-0.045) ng/ml NT-Pro-B Natriuret Pep (0-900) pg/ml Total Protein 6.2 L D (6.4-8.2) gm/dl Albumin 2.5 L (3.4-5.0) gm/dl Globulin 3.7 (2.5-4.0) gm/dl Albumin/Globulin Ratio 0.7 L (0.9-2) Procalcitonin (0-0.5) ng/ml Nasal Screen MRSA (PCR) (Negative) Influenza Type A (PCR) (Neg) Influenza Type B (PCR) (Neg) 09/21/19 09/21/19 09/21/19 Range/Units 00:38 00:37 00:35 WBC (4.8-10.8) K/uL RBC (4.7-6.1) M/uL Hgb (14.0-18.0) g/dL POC Hgb (14.0-18.0) g/dl Hct (42-52) % POC Hct (42-52) % MCV (80-100) fL MCH (25-34) pg MCHC (32-36) g/dL RDW Std Deviation (36.4-46.3) fL RDW Coeff of Qing (11.5-14.5) % Plt Count (130-400) K/uL MPV (7.4-10.4) fL Immature Gran % (Auto) % Neut % (Auto) % Lymph % (Auto) % Dickey % (Auto) % Eos % (Auto) % Baso % (Auto) % Immature Gran # (Auto) (0.00-0.02) K/uL Neut # (Auto) (1.4-6.5) K/uL Lymph # (Auto) (1.2-3.4) K/uL Dickey # (Auto) (0.11-0.59) K/uL Eos # (Auto) (0-0.5) K/uL Baso # (Auto) (0-0.2) K/uL Absolute Nucleated RBC (0-0) K/uL Nucleated RBC % (auto) % PT (9.0-12.0) Seconds INR (0.9-1.1) APTT (21.0-31.0) Seconds PTT Ratio VBG pH (7.36-7.41) VBG pCO2 (38-50) mmHg VBG pO2 mmHg VBG HCO3 mmol/L VBG O2 Saturation % VBG Base Excess mEq/L Barometric Pressure mm/Hg POC Sodium (135-144) mEq/L Sodium (136-145) mmol/L POC Potassium (3.3-5.0) mEq/L Potassium (3.5-5.1) mmol/L POC Chloride (101-112) mEq/L Chloride (98-107) mmol/L Carbon Dioxide (21-32) mmol/L POC Total CO2 (24-31) mEq/l Anion Gap (3-11) POC Anion Gap (16-25) mmol/L POC BUN (7-18) mg/dl BUN (7-18) mg/dl Creatinine (0.6-1.4) mg/dl POC Creatinine (0.6-1.3) mg/dl Est Cr Clr Drug Dosing ml/min Est GFR ( Amer) Est GFR (Non-Af Amer) BUN/Creatinine Ratio (10-20) Glucose (70-99) mg/dl POC Glucose 141 H 135 H 353 H* (70-99) POC Glucose (other) (70-99) mg/dl Estimat Average Glucose mg/dl Hemoglobin A1c (4.5-5.6) % POC Lactic Acid Jose Ramon (0.90-1.70) mmol/L Lactate (0.4-2.0) mmol/L Calcium (8.5-10.1) mg/dl POC Ioniz Calcium Sherlyn (1.12-1.32) mmol/l Phosphorus (2.5-4.9) mg/dl Magnesium (1.8-2.4) mg/dl Total Bilirubin (0.2-1) mg/dl Direct Bilirubin (0-0.2) mg/dl AST (15-37) U/L ALT (12-78) U/L Alkaline Phosphatase (45-117) U/L Troponin I (0-0.045) ng/ml NT-Pro-B Natriuret Pep (0-900) pg/ml Total Protein (6.4-8.2) gm/dl Albumin (3.4-5.0) gm/dl Globulin (2.5-4.0) gm/dl Albumin/Globulin Ratio (0.9-2) Procalcitonin (0-0.5) ng/ml Nasal Screen MRSA (PCR) (Negative) Influenza Type A (PCR) (Neg) Influenza Type B (PCR) (Neg) 09/21/19 09/20/19 09/20/19 Range/Units 00:34 23:46 16:52 WBC (4.8-10.8) K/uL RBC (4.7-6.1) M/uL Hgb (14.0-18.0) g/dL POC Hgb (14.0-18.0) g/dl Hct (42-52) % POC Hct (42-52) % MCV (80-100) fL MCH (25-34) pg MCHC (32-36) g/dL RDW Std Deviation (36.4-46.3) fL RDW Coeff of Qing (11.5-14.5) % Plt Count (130-400) K/uL MPV (7.4-10.4) fL Immature Gran % (Auto) % Neut % (Auto) % Lymph % (Auto) % Dickey % (Auto) % Eos % (Auto) % Baso % (Auto) % Immature Gran # (Auto) (0.00-0.02) K/uL Neut # (Auto) (1.4-6.5) K/uL Lymph # (Auto) (1.2-3.4) K/uL Dickey # (Auto) (0.11-0.59) K/uL Eos # (Auto) (0-0.5) K/uL Baso # (Auto) (0-0.2) K/uL Absolute Nucleated RBC (0-0) K/uL Nucleated RBC % (auto) % PT (9.0-12.0) Seconds INR (0.9-1.1) APTT 38.0 H (21.0-31.0) Seconds PTT Ratio 1.4 VBG pH (7.36-7.41) VBG pCO2 (38-50) mmHg VBG pO2 mmHg VBG HCO3 mmol/L VBG O2 Saturation % VBG Base Excess mEq/L Barometric Pressure mm/Hg POC Sodium (135-144) mEq/L Sodium (136-145) mmol/L POC Potassium (3.3-5.0) mEq/L Potassium 3.5 D (3.5-5.1) mmol/L POC Chloride (101-112) mEq/L Chloride (98-107) mmol/L Carbon Dioxide (21-32) mmol/L POC Total CO2 (24-31) mEq/l Anion Gap (3-11) POC Anion Gap (16-25) mmol/L POC BUN (7-18) mg/dl BUN (7-18) mg/dl Creatinine (0.6-1.4) mg/dl POC Creatinine (0.6-1.3) mg/dl Est Cr Clr Drug Dosing ml/min Est GFR ( Amer) Est GFR (Non-Af Amer) BUN/Creatinine Ratio (10-20) Glucose (70-99) mg/dl POC Glucose (70-99) POC Glucose (other) (70-99) mg/dl Estimat Average Glucose mg/dl Hemoglobin A1c (4.5-5.6) % POC Lactic Acid Jose Ramon (0.90-1.70) mmol/L Lactate 1.9 (0.4-2.0) mmol/L Calcium (8.5-10.1) mg/dl POC Ioniz Calcium Sherlyn (1.12-1.32) mmol/l Phosphorus (2.5-4.9) mg/dl Magnesium (1.8-2.4) mg/dl Total Bilirubin (0.2-1) mg/dl Direct Bilirubin (0-0.2) mg/dl AST (15-37) U/L ALT (12-78) U/L Alkaline Phosphatase (45-117) U/L Troponin I 1.720 H* (0-0.045) ng/ml NT-Pro-B Natriuret Pep (0-900) pg/ml Total Protein (6.4-8.2) gm/dl Albumin (3.4-5.0) gm/dl Globulin (2.5-4.0) gm/dl Albumin/Globulin Ratio (0.9-2) Procalcitonin (0-0.5) ng/ml Nasal Screen MRSA (PCR) (Negative) Influenza Type A (PCR) (Neg) Influenza Type B (PCR) (Neg) 09/20/19 09/20/19 09/20/19 Range/Units 16:40 14:35 14:35 WBC (4.8-10.8) K/uL RBC (4.7-6.1) M/uL Hgb (14.0-18.0) g/dL POC Hgb (14.0-18.0) g/dl Hct (42-52) % POC Hct (42-52) % MCV (80-100) fL MCH (25-34) pg MCHC (32-36) g/dL RDW Std Deviation (36.4-46.3) fL RDW Coeff of Qing (11.5-14.5) % Plt Count (130-400) K/uL MPV (7.4-10.4) fL Immature Gran % (Auto) % Neut % (Auto) % Lymph % (Auto) % Dickey % (Auto) % Eos % (Auto) % Baso % (Auto) % Immature Gran # (Auto) (0.00-0.02) K/uL Neut # (Auto) (1.4-6.5) K/uL Lymph # (Auto) (1.2-3.4) K/uL Dickey # (Auto) (0.11-0.59) K/uL Eos # (Auto) (0-0.5) K/uL Baso # (Auto) (0-0.2) K/uL Absolute Nucleated RBC (0-0) K/uL Nucleated RBC % (auto) % PT (9.0-12.0) Seconds INR (0.9-1.1) APTT (21.0-31.0) Seconds PTT Ratio VBG pH 7.44 H (7.36-7.41) VBG pCO2 38 (38-50) mmHg VBG pO2 41 mmHg VBG HCO3 25 mmol/L VBG O2 Saturation 76.2 % VBG Base Excess 1.0 mEq/L Barometric Pressure 732.3 mm/Hg POC Sodium (135-144) mEq/L Sodium (136-145) mmol/L POC Potassium (3.3-5.0) mEq/L Potassium (3.5-5.1) mmol/L POC Chloride (101-112) mEq/L Chloride (98-107) mmol/L Carbon Dioxide (21-32) mmol/L POC Total CO2 (24-31) mEq/l Anion Gap (3-11) POC Anion Gap (16-25) mmol/L POC BUN (7-18) mg/dl BUN (7-18) mg/dl Creatinine (0.6-1.4) mg/dl POC Creatinine (0.6-1.3) mg/dl Est Cr Clr Drug Dosing ml/min Est GFR ( Amer) Est GFR (Non-Af Amer) BUN/Creatinine Ratio (10-20) Glucose (70-99) mg/dl POC Glucose (70-99) POC Glucose (other) (70-99) mg/dl Estimat Average Glucose mg/dl Hemoglobin A1c (4.5-5.6) % POC Lactic Acid Jose Ramon (0.90-1.70) mmol/L Lactate 3.1 H* (0.4-2.0) mmol/L Calcium (8.5-10.1) mg/dl POC Ioniz Calcium Sherlyn (1.12-1.32) mmol/l Phosphorus (2.5-4.9) mg/dl Magnesium (1.8-2.4) mg/dl Total Bilirubin (0.2-1) mg/dl Direct Bilirubin (0-0.2) mg/dl AST (15-37) U/L ALT (12-78) U/L Alkaline Phosphatase (45-117) U/L Troponin I (0-0.045) ng/ml NT-Pro-B Natriuret Pep (0-900) pg/ml Total Protein (6.4-8.2) gm/dl Albumin (3.4-5.0) gm/dl Globulin (2.5-4.0) gm/dl Albumin/Globulin Ratio (0.9-2) Procalcitonin (0-0.5) ng/ml Nasal Screen MRSA (PCR) Negative (Negative) Influenza Type A (PCR) (Neg) Influenza Type B (PCR) (Neg) 09/20/19 09/20/19 09/20/19 Range/Units 14:30 13:58 13:54 WBC (4.8-10.8) K/uL RBC (4.7-6.1) M/uL Hgb (14.0-18.0) g/dL POC Hgb 16.0 (14.0-18.0) g/dl Hct (42-52) % POC Hct 47 (42-52) % MCV (80-100) fL MCH (25-34) pg MCHC (32-36) g/dL RDW Std Deviation (36.4-46.3) fL RDW Coeff of Qing (11.5-14.5) % Plt Count (130-400) K/uL MPV (7.4-10.4) fL Immature Gran % (Auto) % Neut % (Auto) % Lymph % (Auto) % Dickey % (Auto) % Eos % (Auto) % Baso % (Auto) % Immature Gran # (Auto) (0.00-0.02) K/uL Neut # (Auto) (1.4-6.5) K/uL Lymph # (Auto) (1.2-3.4) K/uL Dickey # (Auto) (0.11-0.59) K/uL Eos # (Auto) (0-0.5) K/uL Baso # (Auto) (0-0.2) K/uL Absolute Nucleated RBC (0-0) K/uL Nucleated RBC % (auto) % PT (9.0-12.0) Seconds INR (0.9-1.1) APTT (21.0-31.0) Seconds PTT Ratio VBG pH (7.36-7.41) VBG pCO2 (38-50) mmHg VBG pO2 mmHg VBG HCO3 mmol/L VBG O2 Saturation % VBG Base Excess mEq/L Barometric Pressure mm/Hg POC Sodium 138 (135-144) mEq/L Sodium (136-145) mmol/L POC Potassium 4.5 (3.3-5.0) mEq/L Potassium (3.5-5.1) mmol/L POC Chloride 100 L (101-112) mEq/L Chloride (98-107) mmol/L Carbon Dioxide (21-32) mmol/L POC Total CO2 25 (24-31) mEq/l Anion Gap (3-11) POC Anion Gap 17.0 (16-25) mmol/L POC BUN 18 (7-18) mg/dl BUN (7-18) mg/dl Creatinine (0.6-1.4) mg/dl POC Creatinine 1.0 (0.6-1.3) mg/dl Est Cr Clr Drug Dosing ml/min Est GFR ( Amer) Est GFR (Non-Af Amer) BUN/Creatinine Ratio (10-20) Glucose (70-99) mg/dl POC Glucose (70-99) POC Glucose (other) 201 H (70-99) mg/dl Estimat Average Glucose mg/dl Hemoglobin A1c (4.5-5.6) % POC Lactic Acid Jose Ramon 3.61 H (0.90-1.70) mmol/L Lactate (0.4-2.0) mmol/L Calcium (8.5-10.1) mg/dl POC Ioniz Calcium Sherlyn 1.08 L (1.12-1.32) mmol/l Phosphorus (2.5-4.9) mg/dl Magnesium (1.8-2.4) mg/dl Total Bilirubin (0.2-1) mg/dl Direct Bilirubin (0-0.2) mg/dl AST (15-37) U/L ALT (12-78) U/L Alkaline Phosphatase (45-117) U/L Troponin I (0-0.045) ng/ml NT-Pro-B Natriuret Pep (0-900) pg/ml Total Protein (6.4-8.2) gm/dl Albumin (3.4-5.0) gm/dl Globulin (2.5-4.0) gm/dl Albumin/Globulin Ratio (0.9-2) Procalcitonin (0-0.5) ng/ml Nasal Screen MRSA (PCR) (Negative) Influenza Type A (PCR) Neg for Influ A (Neg) Influenza Type B (PCR) Neg for Influ B (Neg) 09/20/19 09/20/19 09/20/19 Range/Units 13:51 13:51 13:51 WBC (4.8-10.8) K/uL RBC (4.7-6.1) M/uL Hgb (14.0-18.0) g/dL POC Hgb (14.0-18.0) g/dl Hct (42-52) % POC Hct (42-52) % MCV (80-100) fL MCH (25-34) pg MCHC (32-36) g/dL RDW Std Deviation (36.4-46.3) fL RDW Coeff of Qing (11.5-14.5) % Plt Count (130-400) K/uL MPV (7.4-10.4) fL Immature Gran % (Auto) % Neut % (Auto) % Lymph % (Auto) % Dickey % (Auto) % Eos % (Auto) % Baso % (Auto) % Immature Gran # (Auto) (0.00-0.02) K/uL Neut # (Auto) (1.4-6.5) K/uL Lymph # (Auto) (1.2-3.4) K/uL Dickey # (Auto) (0.11-0.59) K/uL Eos # (Auto) (0-0.5) K/uL Baso # (Auto) (0-0.2) K/uL Absolute Nucleated RBC (0-0) K/uL Nucleated RBC % (auto) % PT (9.0-12.0) Seconds INR (0.9-1.1) APTT (21.0-31.0) Seconds PTT Ratio VBG pH (7.36-7.41) VBG pCO2 (38-50) mmHg VBG pO2 mmHg VBG HCO3 mmol/L VBG O2 Saturation % VBG Base Excess mEq/L Barometric Pressure mm/Hg POC Sodium (135-144) mEq/L Sodium 137 (136-145) mmol/L POC Potassium (3.3-5.0) mEq/L Potassium 4.5 (3.5-5.1) mmol/L POC Chloride (101-112) mEq/L Chloride 102 (98-107) mmol/L Carbon Dioxide 23 (21-32) mmol/L POC Total CO2 (24-31) mEq/l Anion Gap 13.0 H (3-11) POC Anion Gap (16-25) mmol/L POC BUN (7-18) mg/dl BUN 19 H (7-18) mg/dl Creatinine 1.17 (0.6-1.4) mg/dl POC Creatinine (0.6-1.3) mg/dl Est Cr Clr Drug Dosing 80.8 ml/min Est GFR ( Amer) 76.4 Est GFR (Non-Af Amer) 66.0 BUN/Creatinine Ratio 16.5 (10-20) Glucose 212 H (70-99) mg/dl POC Glucose (70-99) POC Glucose (other) (70-99) mg/dl Estimat Average Glucose mg/dl Hemoglobin A1c (4.5-5.6) % POC Lactic Acid Jose Ramon (0.90-1.70) mmol/L Lactate (0.4-2.0) mmol/L Calcium 9.3 (8.5-10.1) mg/dl POC Ioniz Calcium Sherlyn (1.12-1.32) mmol/l Phosphorus (2.5-4.9) mg/dl Magnesium 2.2 (1.8-2.4) mg/dl Total Bilirubin 1.3 H (0.2-1) mg/dl Direct Bilirubin (0-0.2) mg/dl AST 6 L (15-37) U/L ALT 14 (12-78) U/L Alkaline Phosphatase 70 (45-117) U/L Troponin I 0.115 H* (0-0.045) ng/ml NT-Pro-B Natriuret Pep 03906 H (0-900) pg/ml Total Protein 8.1 (6.4-8.2) gm/dl Albumin 3.5 (3.4-5.0) gm/dl Globulin 4.6 H (2.5-4.0) gm/dl Albumin/Globulin Ratio 0.8 L (0.9-2) Procalcitonin 0.09 (0-0.5) ng/ml Nasal Screen MRSA (PCR) (Negative) Influenza Type A (PCR) (Neg) Influenza Type B (PCR) (Neg) 09/20/19 09/20/19 Range/Units 13:51 13:51 WBC 18.99 H (4.8-10.8) K/uL RBC 5.72 (4.7-6.1) M/uL Hgb 16.1 (14.0-18.0) g/dL POC Hgb (14.0-18.0) g/dl Hct 49.1 (42-52) % POC Hct (42-52) % MCV 85.8 (80-100) fL MCH 28.1 (25-34) pg MCHC 32.8 (32-36) g/dL RDW Std Deviation 43.0 (36.4-46.3) fL RDW Coeff of Qing 13.7 (11.5-14.5) % Plt Count 237 (130-400) K/uL MPV 13.0 H (7.4-10.4) fL Immature Gran % (Auto) 0.3 % Neut % (Auto) 70.6 % Lymph % (Auto) 12.4 % Dickey % (Auto) 16.6 % Eos % (Auto) 0.0 % Baso % (Auto) 0.1 % Immature Gran # (Auto) 0.05 H (0.00-0.02) K/uL Neut # (Auto) 13.41 H (1.4-6.5) K/uL Lymph # (Auto) 2.36 (1.2-3.4) K/uL Dickey # (Auto) 3.15 H (0.11-0.59) K/uL Eos # (Auto) 0.00 (0-0.5) K/uL Baso # (Auto) 0.02 (0-0.2) K/uL Absolute Nucleated RBC 0.02 H (0-0) K/uL Nucleated RBC % (auto) 0.1 % PT 11.9 (9.0-12.0) Seconds INR 1.2 H (0.9-1.1) APTT 31.9 H (21.0-31.0) Seconds PTT Ratio 1.2 VBG pH (7.36-7.41) VBG pCO2 (38-50) mmHg VBG pO2 mmHg VBG HCO3 mmol/L VBG O2 Saturation % VBG Base Excess mEq/L Barometric Pressure mm/Hg POC Sodium (135-144) mEq/L Sodium (136-145) mmol/L POC Potassium (3.3-5.0) mEq/L Potassium (3.5-5.1) mmol/L POC Chloride (101-112) mEq/L Chloride (98-107) mmol/L Carbon Dioxide (21-32) mmol/L POC Total CO2 (24-31) mEq/l Anion Gap (3-11) POC Anion Gap (16-25) mmol/L POC BUN (7-18) mg/dl BUN (7-18) mg/dl Creatinine (0.6-1.4) mg/dl POC Creatinine (0.6-1.3) mg/dl Est Cr Clr Drug Dosing ml/min Est GFR ( Amer) Est GFR (Non-Af Amer) BUN/Creatinine Ratio (10-20) Glucose (70-99) mg/dl POC Glucose (70-99) POC Glucose (other) (70-99) mg/dl Estimat Average Glucose mg/dl Hemoglobin A1c (4.5-5.6) % POC Lactic Acid Jose Ramon (0.90-1.70) mmol/L Lactate (0.4-2.0) mmol/L Calcium (8.5-10.1) mg/dl POC Ioniz Calcium Sherlyn (1.12-1.32) mmol/l Phosphorus (2.5-4.9) mg/dl Magnesium (1.8-2.4) mg/dl Total Bilirubin (0.2-1) mg/dl Direct Bilirubin (0-0.2) mg/dl AST (15-37) U/L ALT (12-78) U/L Alkaline Phosphatase (45-117) U/L Troponin I (0-0.045) ng/ml NT-Pro-B Natriuret Pep (0-900) pg/ml Total Protein (6.4-8.2) gm/dl Albumin (3.4-5.0) gm/dl Globulin (2.5-4.0) gm/dl Albumin/Globulin Ratio (0.9-2) Procalcitonin (0-0.5) ng/ml Nasal Screen MRSA (PCR) (Negative) Influenza Type A (PCR) (Neg) Influenza Type B (PCR) (Neg) Resident Activity Tracking Resident Involvement: Resident Care Provided Care Provided: Adult Hospital Medicine (ICU) (1) Respiratory failure with hypoxia Chronicity: unspecified Qualified Code(s): J96.91 - Respiratory failure, unspecified with hypoxia (2) CHF (congestive heart failure) Heart failure chronicity: acute Heart failure type: diastolic Qualified Code(s): I50.31 - Acute diastolic (congestive) heart failure (3) Pneumonia Laterality: bilateral Lung location: unspecified part of lung Pneumonia type: due to unspecified organism Qualified Code(s): J18.9 - Pneumonia, unspecified organism
[2019-09-21 08:21] LABS: Partial Thromboplastin Ratio 1.6; Partial Thromboplastin Time 42.7 Seconds (21.0-31.0)
[2019-09-21] MEDS ORDERED: HEPARIN IV BOLUS 4,000 UNITS in SYRINGE 0 ML IV STA (08:37)
--- NOTE | 2019-09-21 11:50 | Cardiology Progress Note ---
Date of Service September 21, 2019 Assessment & Plan (1) Atrial fibrillation with RVR: Patient past and current wide-complex tachycardia secondary to aberrant conduction of atrial fibrillation with rapid response. Patient begun appropriately on IV amiodarone with slowing and return to narrow complex conduction Will likely need additional medical therapy for rate control while treating underlying exacerbating causes likely worsening pulmonary edema with possible superimposed aspiration pneumonitis Patient with known severe aortic stenosis and severe LV dysfunction by echocardiogram today In the past it was felt the patient would be managed medically and valve replacement would not be considered given past neurologic injuries and issues Single dose of IV furosemide given in the emergency room would likely need further diuresis as well as additional beta-krzysztof added to IV amiodarone No further arrhythmias overnight with patient in atrial fibrillation. Patient on IV amiodarone and IV metoprolol. (2) Aortic stenosis, severe: In part likely culprit of gradual decline, outpatient congestive heart failure. Per review of records patient not felt to be an interventional candidate Overall prognosis significantly limit (3) Respiratory failure with hypoxia: Acute pulmonary edema as inciting cause suspect gradual onset of heart failure with increasing heart rates followed by tachyarrhythmias leading to further pulmonary edema. (4) Pulmonary edema: Chest x-ray consistent with pulmonary edema Subjective Patient seen, examined, chart medications and telemetry reviewed. Patient denying focal complaint currently less respiratory distress than last night. Physical Exam Constitutional: + ill appearing Neck: + thick neck Respiratory: no respiratory distress Cardiovascular: Rate/Rhythm: + irregularly irregular Heart Sounds: + murmur (3/6 systolic, no diastolic) Extremities: + edema (2+) Gastrointestinal (Abdomen): normal bowel sounds, soft, nontender, no hepatosplenomegaly Results & Data Vital Signs (Past 12 Hours) Vital Signs Temp Pulse Pulse Resp BP BP Pulse Ox 09/21/19 11:00 95 H 09/21/19 08:00 95 H 09/21/19 07:30 93 H 20 95 09/21/19 07:00 36.8 C 92 H 20 100/82 97 09/21/19 06:10 95 H 13 100/80 96 09/21/19 05:40 91 H 18 108/70 98 09/21/19 05:09 84 20 97/76 L 97 09/21/19 04:39 90 18 93/75 L 97 09/21/19 04:10 36.8 C 93 H 18 101/78 95 09/21/19 03:43 82 97/68 L 09/21/19 03:39 92 H 18 97/68 L 98 09/21/19 03:35 87 21 98 09/21/19 03:09 92 H 19 95/74 L 97 09/21/19 02:39 87 19 94/72 L 97 09/21/19 02:09 91 H 20 95/76 L 97 09/21/19 01:39 86 18 87/66 L 96 09/21/19 01:37 102 H 17 88/65 L 96 09/21/19 01:36 92 H 16 88/68 L 96 09/21/19 01:25 93 H 103/76 09/21/19 01:15 92 H 19 96 09/21/19 01:09 84 20 103/76 95 09/21/19 00:40 92 H 20 106/70 97 09/21/19 00:09 37.0 C 96 H 22 116/79 94 Laboratory Results Laboratory Results - last 24 hr 09/20/19 09/20/19 09/20/19 13:51 13:51 13:51 WBC 18.99 H RBC 5.72 Hgb 16.1 POC Hgb Hct 49.1 POC Hct MCV 85.8 MCH 28.1 MCHC 32.8 RDW Std Deviation 43.0 RDW Coeff of Qing 13.7 Plt Count 237 MPV 13.0 H Immature Gran % (Auto) 0.3 Neut % (Auto) 70.6 Lymph % (Auto) 12.4 [place] % (Auto) 16.6 Eos % (Auto) 0.0 Baso % (Auto) 0.1 Immature Gran # (Auto) 0.05 H Neut # (Auto) 13.41 H Lymph # (Auto) 2.36 [place] # (Auto) 3.15 H Eos # (Auto) 0.00 Baso # (Auto) 0.02 Absolute Nucleated RBC 0.02 H Nucleated RBC % (auto) 0.1 PT 11.9 INR 1.2 H APTT 31.9 H PTT Ratio 1.2 VBG pH VBG pCO2 VBG pO2 VBG HCO3 VBG O2 Saturation VBG Base Excess Barometric Pressure POC Sodium Sodium 137 POC Potassium Potassium 4.5 POC Chloride Chloride 102 Carbon Dioxide 23 POC Total CO2 Anion Gap 13.0 H POC Anion Gap POC BUN BUN 19 H Creatinine 1.17 POC Creatinine Est Cr Clr Drug Dosing 80.8 Est GFR ( Amer) 76.4 Est GFR (Non-Af Amer) 66.0 BUN/Creatinine Ratio 16.5 Glucose 212 H POC Glucose POC Glucose (other) Estimat Average Glucose Hemoglobin A1c POC Lactic Acid Jose Ramon Lactate Calcium 9.3 POC Ioniz Calcium [place] Phosphorus Magnesium 2.2 Total Bilirubin 1.3 H Direct Bilirubin AST 6 L ALT 14 Alkaline Phosphatase 70 Troponin I NT-Pro-B Natriuret Pep Total Protein 8.1 Albumin 3.5 Globulin 4.6 H Albumin/Globulin Ratio 0.8 L Procalcitonin Nasal Screen MRSA (PCR) Influenza Type A (PCR) Influenza Type B (PCR) 09/20/19 09/20/19 09/20/19 13:51 13:51 13:54 WBC RBC Hgb POC Hgb Hct POC Hct MCV MCH MCHC RDW Std Deviation RDW Coeff of Qing Plt Count MPV Immature Gran % (Auto) Neut % (Auto) Lymph % (Auto) [place] % (Auto) Eos % (Auto) Baso % (Auto) Immature Gran # (Auto) Neut # (Auto) Lymph # (Auto) [place] # (Auto) Eos # (Auto) Baso # (Auto) Absolute Nucleated RBC Nucleated RBC % (auto) PT INR APTT PTT Ratio VBG pH VBG pCO2 VBG pO2 VBG HCO3 VBG O2 Saturation VBG Base Excess Barometric Pressure POC Sodium Sodium POC Potassium Potassium POC Chloride Chloride Carbon Dioxide POC Total CO2 Anion Gap POC Anion Gap POC BUN BUN Creatinine POC Creatinine Est Cr Clr Drug Dosing Est GFR ( Amer) Est GFR (Non-Af Amer) BUN/Creatinine Ratio Glucose POC Glucose POC Glucose (other) Estimat Average Glucose Hemoglobin A1c POC Lactic Acid Jose Ramon 3.61 H Lactate Calcium POC Ioniz Calcium [place] Phosphorus Magnesium Total Bilirubin Direct Bilirubin AST ALT Alkaline Phosphatase Troponin I 0.115 H* NT-Pro-B Natriuret Pep 59578 H Total Protein Albumin Globulin Albumin/Globulin Ratio Procalcitonin 0.09 Nasal Screen MRSA (PCR) Influenza Type A (PCR) Influenza Type B (PCR) 09/20/19 09/20/19 09/20/19 13:58 14:30 14:35 WBC RBC Hgb POC Hgb 16.0 Hct POC Hct 47 MCV MCH MCHC RDW Std Deviation RDW Coeff of Qing Plt Count MPV Immature Gran % (Auto) Neut % (Auto) Lymph % (Auto) [place] % (Auto) Eos % (Auto) Baso % (Auto) Immature Gran # (Auto) Neut # (Auto) Lymph # (Auto) [place] # (Auto) Eos # (Auto) Baso # (Auto) Absolute Nucleated RBC Nucleated RBC % (auto) PT INR APTT PTT Ratio VBG pH VBG pCO2 VBG pO2 VBG HCO3 VBG O2 Saturation VBG Base Excess Barometric Pressure POC Sodium 138 Sodium POC Potassium 4.5 Potassium POC Chloride 100 L Chloride Carbon Dioxide POC Total CO2 25 Anion Gap POC Anion Gap 17.0 POC BUN 18 BUN Creatinine POC Creatinine 1.0 Est Cr Clr Drug Dosing Est GFR ( Amer) Est GFR (Non-Af Amer) BUN/Creatinine Ratio Glucose POC Glucose POC Glucose (other) 201 H Estimat Average Glucose Hemoglobin A1c POC Lactic Acid Jose Ramon Lactate 3.1 H* Calcium POC Ioniz Calcium [place] 1.08 L Phosphorus Magnesium Total Bilirubin Direct Bilirubin AST ALT Alkaline Phosphatase Troponin I NT-Pro-B Natriuret Pep Total Protein Albumin Globulin Albumin/Globulin Ratio Procalcitonin Nasal Screen MRSA (PCR) Influenza Type A (PCR) Neg for Influ A Influenza Type B (PCR) Neg for Influ B 09/20/19 09/20/19 09/20/19 14:35 16:40 16:52 WBC RBC Hgb POC Hgb Hct POC Hct MCV MCH MCHC RDW Std Deviation RDW Coeff of Qing Plt Count MPV Immature Gran % (Auto) Neut % (Auto) Lymph % (Auto) [place] % (Auto) Eos % (Auto) Baso % (Auto) Immature Gran # (Auto) Neut # (Auto) Lymph # (Auto) [place] # (Auto) Eos # (Auto) Baso # (Auto) Absolute Nucleated RBC Nucleated RBC % (auto) PT INR APTT PTT Ratio VBG pH 7.44 H VBG pCO2 38 VBG pO2 41 VBG HCO3 25 VBG O2 Saturation 76.2 VBG Base Excess 1.0 Barometric Pressure 732.3 POC Sodium Sodium POC Potassium Potassium POC Chloride Chloride Carbon Dioxide POC Total CO2 Anion Gap POC Anion Gap POC BUN BUN Creatinine POC Creatinine Est Cr Clr Drug Dosing Est GFR ( Amer) Est GFR (Non-Af Amer) BUN/Creatinine Ratio Glucose POC Glucose POC Glucose (other) Estimat Average Glucose Hemoglobin A1c POC Lactic Acid Jose Ramon Lactate 1.9 Calcium POC Ioniz Calcium [place] Phosphorus Magnesium Total Bilirubin Direct Bilirubin AST ALT Alkaline Phosphatase Troponin I NT-Pro-B Natriuret Pep Total Protein Albumin Globulin Albumin/Globulin Ratio Procalcitonin Nasal Screen MRSA (PCR) Negative Influenza Type A (PCR) Influenza Type B (PCR) 09/20/19 09/21/19 09/21/19 23:46 00:34 00:35 WBC RBC Hgb POC Hgb Hct POC Hct MCV MCH MCHC RDW Std Deviation RDW Coeff of Qing Plt Count MPV Immature Gran % (Auto) Neut % (Auto) Lymph % (Auto) [place] % (Auto) Eos % (Auto) Baso % (Auto) Immature Gran # (Auto) Neut # (Auto) Lymph # (Auto) [place] # (Auto) Eos # (Auto) Baso # (Auto) Absolute Nucleated RBC Nucleated RBC % (auto) PT INR APTT 38.0 H PTT Ratio 1.4 VBG pH VBG pCO2 VBG pO2 VBG HCO3 VBG O2 Saturation VBG Base Excess Barometric Pressure POC Sodium Sodium POC Potassium Potassium 3.5 D POC Chloride Chloride Carbon Dioxide POC Total CO2 Anion Gap POC Anion Gap POC BUN BUN Creatinine POC Creatinine Est Cr Clr Drug Dosing Est GFR ( Amer) Est GFR (Non-Af Amer) BUN/Creatinine Ratio Glucose POC Glucose 353 H* POC Glucose (other) Estimat Average Glucose Hemoglobin A1c POC Lactic Acid Jose Ramon Lactate Calcium POC Ioniz Calcium [place] Phosphorus Magnesium Total Bilirubin Direct Bilirubin AST ALT Alkaline Phosphatase Troponin I 1.720 H* NT-Pro-B Natriuret Pep Total Protein Albumin Globulin Albumin/Globulin Ratio Procalcitonin Nasal Screen MRSA (PCR) Influenza Type A (PCR) Influenza Type B (PCR) 09/21/19 09/21/19 09/21/19 00:37 00:38 04:09 WBC RBC Hgb POC Hgb Hct POC Hct MCV MCH MCHC RDW Std Deviation RDW Coeff of Qing Plt Count MPV Immature Gran % (Auto) Neut % (Auto) Lymph % (Auto) [place] % (Auto) Eos % (Auto) Baso % (Auto) Immature Gran # (Auto) Neut # (Auto) Lymph # (Auto) [place] # (Auto) Eos # (Auto) Baso # (Auto) Absolute Nucleated RBC Nucleated RBC % (auto) PT INR APTT PTT Ratio VBG pH VBG pCO2 VBG pO2 VBG HCO3 VBG O2 Saturation VBG Base Excess Barometric Pressure POC Sodium Sodium 140 POC Potassium Potassium 3.4 L POC Chloride Chloride 108 H Carbon Dioxide 27 POC Total CO2 Anion Gap 5.0 POC Anion Gap POC BUN BUN 19 H Creatinine 0.75 D POC Creatinine Est Cr Clr Drug Dosing 116.8 Est GFR ( Amer) 113.2 Est GFR (Non-Af Amer) 97.6 BUN/Creatinine Ratio 24.7 H Glucose 121 H POC Glucose 135 H 141 H POC Glucose (other) Estimat Average Glucose Hemoglobin A1c POC Lactic Acid Jose Ramon Lactate Calcium 7.7 L D POC Ioniz Calcium [place] Phosphorus 3.5 Magnesium 2.1 Total Bilirubin 0.6 D Direct Bilirubin 0.1 AST 13 L ALT 10 L Alkaline Phosphatase 47 Troponin I 1.450 H* NT-Pro-B Natriuret Pep Total Protein 6.2 L D Albumin 2.5 L Globulin 3.7 Albumin/Globulin Ratio 0.7 L Procalcitonin Nasal Screen MRSA (PCR) Influenza Type A (PCR) Influenza Type B (PCR) 09/21/19 09/21/19 09/21/19 04:09 04:09 07:54 WBC 11.51 H RBC 4.62 L Hgb 13.1 L D POC Hgb Hct 40.1 L POC Hct MCV 86.8 MCH 28.4 MCHC 32.7 RDW Std Deviation 43.8 RDW Coeff of Qing 13.6 Plt Count 191 MPV 12.7 H Immature Gran % (Auto) 0.3 Neut % (Auto) 61.6 Lymph % (Auto) 18.9 [place] % (Auto) 18.7 Eos % (Auto) 0.2 Baso % (Auto) 0.3 Immature Gran # (Auto) 0.03 H Neut # (Auto) 7.11 H Lymph # (Auto) 2.17 [place] # (Auto) 2.15 H Eos # (Auto) 0.02 Baso # (Auto) 0.03 Absolute Nucleated RBC Nucleated RBC % (auto) PT INR APTT 42.7 H PTT Ratio 1.6 VBG pH VBG pCO2 VBG pO2 VBG HCO3 VBG O2 Saturation VBG Base Excess Barometric Pressure POC Sodium Sodium POC Potassium Potassium POC Chloride Chloride Carbon Dioxide POC Total CO2 Anion Gap POC Anion Gap POC BUN BUN Creatinine POC Creatinine Est Cr Clr Drug Dosing Est GFR ( Amer) Est GFR (Non-Af Amer) BUN/Creatinine Ratio Glucose POC Glucose POC Glucose (other) Estimat Average Glucose 114 Hemoglobin A1c 5.6 POC Lactic Acid Jose Ramon Lactate Calcium POC Ioniz Calcium [place] Phosphorus Magnesium Total Bilirubin Direct Bilirubin AST ALT Alkaline Phosphatase Troponin I NT-Pro-B Natriuret Pep Total Protein Albumin Globulin Albumin/Globulin Ratio Procalcitonin Nasal Screen MRSA (PCR) Influenza Type A (PCR) Influenza Type B (PCR) 09/21/19 09/21/19 09:21 11:00 WBC RBC Hgb POC Hgb Hct POC Hct MCV MCH MCHC RDW Std Deviation RDW Coeff of Qing Plt Count MPV Immature Gran % (Auto) Neut % (Auto) Lymph % (Auto) [place] % (Auto) Eos % (Auto) Baso % (Auto) Immature Gran # (Auto) Neut # (Auto) Lymph # (Auto) [place] # (Auto) Eos # (Auto) Baso # (Auto) Absolute Nucleated RBC Nucleated RBC % (auto) PT INR APTT PTT Ratio VBG pH VBG pCO2 VBG pO2 VBG HCO3 VBG O2 Saturation VBG Base Excess Barometric Pressure POC Sodium Sodium POC Potassium Potassium POC Chloride Chloride Carbon Dioxide POC Total CO2 Anion Gap POC Anion Gap POC BUN BUN Creatinine POC Creatinine Est Cr Clr Drug Dosing Est GFR ( Amer) Est GFR (Non-Af Amer) BUN/Creatinine Ratio Glucose POC Glucose 111 H POC Glucose (other) Estimat Average Glucose Hemoglobin A1c POC Lactic Acid Jose Ramon Lactate Calcium POC Ioniz Calcium [place] Phosphorus Magnesium Total Bilirubin Direct Bilirubin AST ALT Alkaline Phosphatase Troponin I 1.100 H* NT-Pro-B Natriuret Pep Total Protein Albumin Globulin Albumin/Globulin Ratio Procalcitonin Nasal Screen MRSA (PCR) Influenza Type A (PCR) Influenza Type B (PCR) Diagnostic Findings Echocardiogram 09/21/2019: Moderate left hypertrophy with diffuse LV dysfunction severe. EF 20-25% Aortic valve is heavily calcified with severe aortic stenosis present underlying bicuspid aortic valve not excluded There is mild to moderate mitral insufficiency Compared to prior studies there is been interval decline in LV systolic function (1) Respiratory failure with hypoxia Chronicity: unspecified Qualified Code(s): J96.91 - Respiratory failure, unspecified with hypoxia
[2019-09-21] MEDS ORDERED: METOPROLOL TARTRATE 1 MG/ML VIAL IV SCH (12:00)
--- NOTE | 2019-09-21 12:43 | Billing Data ---
Date of Service September 21, 2019 Coding Level of Care Code 42399 Subseq Hosp Care Lvl 3
[2019-09-21] MEDS: HEPARIN SODIUM/DEXTROSE 25,000 UNITS/500 ML BAG IV SCH (15:00)
[2019-09-21 15:37] LABS: Partial Thromboplastin Ratio 1.4; Partial Thromboplastin Time 36.7 Seconds (21.0-31.0)
[2019-09-21] MEDS ORDERED: METOPROLOL TARTRATE 1 MG/ML VIAL IV ONE ×2 (16:59→17:42)
[2019-09-21] MEDS ORDERED: AMIODARONE 200 MG TAB PO SCH (17:00)
[2019-09-21] MEDS ORDERED: DIGOXIN 250 MCG in SYRINGE 9 ML IV ONE (17:45)
[2019-09-21] MEDS ORDERED: METOPROLOL TARTRATE 1 MG/ML VIAL IV STA ×3 (18:01→21:15)
[2019-09-21 18:29] LABS: BUN Creatinine Ratio 20.1 (10-20); Calcium 8.8 mg/dl (8.5-10.1); Creatinine Clr Calc Pharmacy 72.4 ml/min; Est GFR (African American) 73.4; Est GFR (Non-African American) 63.3; Phosphorus 3.5 mg/dl (2.5-4.9)
[2019-09-21] MEDS ORDERED: FUROSEMIDE 40 MG/4 ML VIAL IV ONE (19:04)
[2019-09-21] MEDS: MoRPHine SULFATE 2 MG/ML CARP IV PRN ×2 (19:56→21:04)
[2019-09-21] MEDS ORDERED: ONDANSETRON INJ 2 MG/ML 2 ML VIAL IV PRN (20:20)
[2019-09-21] MEDS ORDERED: levETIRAcetam 500 MG TAB PO ONE (20:30)
[2019-09-21] MEDS ORDERED: FAMOTIDINE 20 MG TAB PO ONE (20:30)
[2019-09-21] MEDS ORDERED: METOPROLOL TARTRATE 25 MG TAB PO ONE (20:30)
[2019-09-21] MEDS ORDERED: METOPROLOL TARTRATE 25 MG TAB PO SCH (21:00)
[2019-09-21] MEDS ORDERED: levETIRAcetam 500 MG TAB PO SCH (21:00)
[2019-09-21] MEDS ORDERED: FAMOTIDINE 20 MG TAB PO SCH (21:00)
--- NOTE | 2019-09-21 21:27 | Hospitalist Progress Note ---
Date of Service September 21, 2019 Assessment & Plan (1) Respiratory failure with hypoxia: O2 saturation at time of presentation was 79% (? FIO2). Chest x-ray showed pulmonary edema. Suspected aspiration. Received O2 + ventilatory support with BiPAP. Specific problems addressed below. Titrate supplemental O2. (2) Elevated lactic acid level: Serum lactate 3.1 at time of admission, repeat 1.9. Procalcitonin normal. Elevated lactate probably due to hypoxia, not sepsis. (3) CHF (congestive heart failure): Pulmonary edema at time of admission. Echo Jul 2019 showed LVEF 45% with severe . Did not require diuretic therapy at that time. Acute hypoxic respiratory failure at time of admission. Chest x-ray demonstrated pulmonary edema. Echo now shows LVEF 20-25% with severe and mod MR. Acute on chronic left ventricular heart failure due to severe aortic stenosis + systolic heart failure. Improved overnight with diuretic therapy. Titrate diuretics. No LIZBET or ARB due to severe aortic stenosis. (4) Atrial fibrillation: Chronic atrial fibrillation. At times, with RVR +/- aberrancy. On metoprolol for rate control and apixaban at home. Currently receiving metoprolol, amiodarone, digoxin, IV heparin. (5) Aortic stenosis, severe: Severe per echo; unable to determine if aortic valve bicuspid or tricuspid. Reduced LVEF- 45% in July, now 20-25%. Conservative management previously recommended because of traumatic brain injury and ongoing neurocognitive problems. Cardiac prognosis poor without intervention. ? benefit with reduced LVEF. Discuss further with Cardiology. (6) Aspiration into airway: Suspected aspiration after emesis morning of admission. Seen by [facility]. No apparent aspiration per bedside swallowing evaluation. Continue aspiration precautions. (7) Hypertension: Prescribed metoprolol and amlodipine. Fluctuating hemodynamics. Cardiovascular meds as noted above. (8) Sleep apnea: Recently diagnosed with sleep apnea and prescribed CPAP or BiPAP, ? with O2. Need to obtain report from sleep study. (9) Hyperglycemia: Random glucose day of admission 212. Not diabetic. Hgb A1C 5.6. Insulin coverage as needed. (10) Seizure disorder: Continue levetiracetam- parenterally while NPO. (11) TBI (traumatic brain injury): S/P closed head injury with intracranial hemorrhage. Ongoing neurocognitive deficits. (12) Do not resuscitate status: Per discussion with family: Do not attempt resuscitation in event of a cardiopulmonary arrest. Intubation / mechanical ventilation would be appropriate for ventilatory support for reversible disease. (13) DVT prophylaxis: Usually takes apixaban for AF. Now receiving IV heparin due to NPO status. (14) Discharge planning issues: Discharge disposition to be determined. Needs to establish with PCP in the area. Subjective Recheck for multiple problems. Patient evaluated several times throughout the day and evening. This morning, he was doing better. Weaned off BiPAP to NC. Seen by [facility]- bedside swallowing evaluation did not show any evidence of aspiration. Diet advanced. Had some chills this afternoon, but no fever. Recurrent wide-complex this afternoon and evening. Review of Systems: Difficult to obtain due to pt's cognitive status. Physical Exam Constitutional: no acute distress Eyes: + anicteric sclerae Respiratory: no respiratory distress Auscultation: + rhonchi (few scattered) Cardiovascular: Rate/Rhythm: + irregularly irregular Heart Sounds: + murmur (III/ sys murmur at base); no gallop (none appreciated) and no cardiac rub Extremities: + edema (2+ pretibial); no calf tenderness Gastrointestinal (Abdomen): normal bowel sounds, soft, nontender, no hepatosplenomegaly Skin: no rashes, warm and dry Psychiatric: Orientation: alert Results & Data Vital Signs (Past 12 Hours) Vital Signs Pulse Resp BP Pulse Ox 09/21/19 20:34 135 H 140/107 H 09/21/19 18:09 155 H 110/77 09/21/19 18:02 125 H 09/21/19 17:56 125 H 20 121/70 93 09/21/19 17:44 156 H 135/79 09/21/19 17:43 159 H 22 135/79 91 09/21/19 17:18 159 H 23 111/99 91 09/21/19 17:17 165 H 101/72 09/21/19 17:05 145 H 22 102/72 89 L 09/21/19 17:00 161 H 27 H 93 09/21/19 16:00 117 H 22 93 09/21/19 15:48 117 H 22 100/74 91 09/21/19 15:40 121 H 24 42/25 L 95 09/21/19 15:11 122 H 20 69/47 L 83 L 09/21/19 15:00 110 H 20 90 09/21/19 14:40 120 H 20 101/73 90 09/21/19 14:10 132 H 24 105/76 89 L 09/21/19 14:00 120 H 28 H 89 L 09/21/19 13:40 127 H 29 H 126/86 96 09/21/19 13:10 113 H 20 121/70 98 09/21/19 13:00 112 H 21 88 L 09/21/19 12:40 108 H 20 99/75 L 92 09/21/19 12:10 102 H 18 104/83 95 09/21/19 12:00 111 H 22 94 09/21/19 11:56 117 H 126/63 09/21/19 11:40 116 H 20 126/83 96 09/21/19 11:09 105 H 18 111/74 95 09/21/19 11:00 103 H 23 95 09/21/19 10:40 101 H 24 90/71 L 95 09/21/19 10:10 100 H 15 111/76 97 09/21/19 10:00 109 H 22 95 09/21/19 09:40 103 H 25 H 98/76 L 91 Laboratory Results Laboratory Results - last 24 hr 09/20/19 09/21/19 09/21/19 23:46 00:34 00:35 WBC RBC Hgb Hct MCV MCH MCHC RDW Std Deviation RDW Coeff of Qing Plt Count MPV Immature Gran % (Auto) Neut % (Auto) Lymph % (Auto) [place] % (Auto) Eos % (Auto) Baso % (Auto) Immature Gran # (Auto) Neut # (Auto) Lymph # (Auto) [place] # (Auto) Eos # (Auto) Baso # (Auto) APTT 38.0 H PTT Ratio 1.4 Sodium Potassium 3.5 D Chloride Carbon Dioxide Anion Gap BUN Creatinine Est Cr Clr Drug Dosing Est GFR ( Amer) Est GFR (Non-Af Amer) BUN/Creatinine Ratio Glucose POC Glucose 353 H* Estimat Average Glucose Hemoglobin A1c Calcium Phosphorus Magnesium Total Bilirubin Direct Bilirubin AST ALT Alkaline Phosphatase Troponin I 1.720 H* Total Protein Albumin Globulin Albumin/Globulin Ratio 09/21/19 09/21/19 09/21/19 00:37 00:38 04:09 WBC RBC Hgb Hct MCV MCH MCHC RDW Std Deviation RDW Coeff of Qing Plt Count MPV Immature Gran % (Auto) Neut % (Auto) Lymph % (Auto) [place] % (Auto) Eos % (Auto) Baso % (Auto) Immature Gran # (Auto) Neut # (Auto) Lymph # (Auto) [place] # (Auto) Eos # (Auto) Baso # (Auto) APTT PTT Ratio Sodium 140 Potassium 3.4 L Chloride 108 H Carbon Dioxide 27 Anion Gap 5.0 BUN 19 H Creatinine 0.75 D Est Cr Clr Drug Dosing 116.8 Est GFR ( Amer) 113.2 Est GFR (Non-Af Amer) 97.6 BUN/Creatinine Ratio 24.7 H Glucose 121 H POC Glucose 135 H 141 H Estimat Average Glucose Hemoglobin A1c Calcium 7.7 L D Phosphorus 3.5 Magnesium 2.1 Total Bilirubin 0.6 D Direct Bilirubin 0.1 AST 13 L ALT 10 L Alkaline Phosphatase 47 Troponin I 1.450 H* Total Protein 6.2 L D Albumin 2.5 L Globulin 3.7 Albumin/Globulin Ratio 0.7 L 09/21/19 09/21/19 09/21/19 04:09 04:09 07:54 WBC 11.51 H RBC 4.62 L Hgb 13.1 L D Hct 40.1 L MCV 86.8 MCH 28.4 MCHC 32.7 RDW Std Deviation 43.8 RDW Coeff of Qing 13.6 Plt Count 191 MPV 12.7 H Immature Gran % (Auto) 0.3 Neut % (Auto) 61.6 Lymph % (Auto) 18.9 [place] % (Auto) 18.7 Eos % (Auto) 0.2 Baso % (Auto) 0.3 Immature Gran # (Auto) 0.03 H Neut # (Auto) 7.11 H Lymph # (Auto) 2.17 [place] # (Auto) 2.15 H Eos # (Auto) 0.02 Baso # (Auto) 0.03 APTT 42.7 H PTT Ratio 1.6 Sodium Potassium Chloride Carbon Dioxide Anion Gap BUN Creatinine Est Cr Clr Drug Dosing Est GFR ( Amer) Est GFR (Non-Af Amer) BUN/Creatinine Ratio Glucose POC Glucose Estimat Average Glucose 114 Hemoglobin A1c 5.6 Calcium Phosphorus Magnesium Total Bilirubin Direct Bilirubin AST ALT Alkaline Phosphatase Troponin I Total Protein Albumin Globulin Albumin/Globulin Ratio 09/21/19 09/21/19 09/21/19 09:21 11:00 15:20 WBC RBC Hgb Hct MCV MCH MCHC RDW Std Deviation RDW Coeff of Qing Plt Count MPV Immature Gran % (Auto) Neut % (Auto) Lymph % (Auto) [place] % (Auto) Eos % (Auto) Baso % (Auto) Immature Gran # (Auto) Neut # (Auto) Lymph # (Auto) [place] # (Auto) Eos # (Auto) Baso # (Auto) APTT PTT Ratio Sodium Cancelled Potassium Cancelled Chloride Cancelled Carbon Dioxide Cancelled Anion Gap Cancelled BUN Cancelled Creatinine Cancelled Est Cr Clr Drug Dosing Cancelled Est GFR ( Amer) Cancelled Est GFR (Non-Af Amer) Cancelled BUN/Creatinine Ratio Cancelled Glucose Cancelled POC Glucose 111 H Estimat Average Glucose Hemoglobin A1c Calcium Cancelled Phosphorus Cancelled Magnesium Cancelled Total Bilirubin Direct Bilirubin AST ALT Alkaline Phosphatase Troponin I 1.100 H* 0.796 H* Total Protein Albumin Globulin Albumin/Globulin Ratio 09/21/19 09/21/19 09/21/19 15:20 17:58 20:58 WBC RBC Hgb Hct MCV MCH MCHC RDW Std Deviation RDW Coeff of Qing Plt Count MPV Immature Gran % (Auto) Neut % (Auto) Lymph % (Auto) [place] % (Auto) Eos % (Auto) Baso % (Auto) Immature Gran # (Auto) Neut # (Auto) Lymph # (Auto) [place] # (Auto) Eos # (Auto) Baso # (Auto) APTT 36.7 H PTT Ratio 1.4 Sodium 135 L Potassium Chloride 102 Carbon Dioxide 25 Anion Gap 8.0 BUN 24 H Creatinine 1.21 D Est Cr Clr Drug Dosing 72.4 Est GFR ( Amer) 73.4 Est GFR (Non-Af Amer) 63.3 BUN/Creatinine Ratio 20.1 H Glucose 172 H POC Glucose 190 H Estimat Average Glucose Hemoglobin A1c Calcium 8.8 Phosphorus 3.5 Magnesium Total Bilirubin Direct Bilirubin AST ALT Alkaline Phosphatase Troponin I Total Protein Albumin Globulin Albumin/Globulin Ratio 09/21/19 09/21/19 22:02 22:02 WBC RBC Hgb Hct MCV MCH MCHC RDW Std Deviation RDW Coeff of Qing Plt Count MPV Immature Gran % (Auto) Neut % (Auto) Lymph % (Auto) [place] % (Auto) Eos % (Auto) Baso % (Auto) Immature Gran # (Auto) Neut # (Auto) Lymph # (Auto) [place] # (Auto) Eos # (Auto) Baso # (Auto) APTT Pending PTT Ratio Pending Sodium Potassium Pending Chloride Carbon Dioxide Anion Gap BUN Creatinine Est Cr Clr Drug Dosing Est GFR ( Amer) Est GFR (Non-Af Amer) BUN/Creatinine Ratio Glucose POC Glucose Estimat Average Glucose Hemoglobin A1c Calcium Phosphorus Magnesium Pending Total Bilirubin Direct Bilirubin AST ALT Alkaline Phosphatase Troponin I Pending Total Protein Albumin Globulin Albumin/Globulin Ratio Microbiology 09/20/19 14:35 Blood Aerobic Blood Culture - Preliminary No growth in Aerobic bottle after 24 hours. 09/20/19 14:35 Blood Anaerobic Blood Culture - Preliminary No growth in Anaerobic bottle after 24 hours. 09/20/19 13:51 Blood Aerobic Blood Culture - Preliminary No growth in Aerobic bottle after 24 hours. 09/20/19 13:51 Blood Anaerobic Blood Culture - Preliminary No growth in Anaerobic bottle after 24 hours. Diagnostic Findings Chest x-ray reviewed. Cardiomegaly, slightly improved pulmonary edema. (1) Respiratory failure with hypoxia Chronicity: unspecified Qualified Code(s): J96.91 - Respiratory failure, unspecified with hypoxia (2) CHF (congestive heart failure) Heart failure chronicity: acute Heart failure type: diastolic Qualified Code(s): I50.31 - Acute diastolic (congestive) heart failure
[2019-09-21 22:30] LABS: Potassium 3.9 mmol/L (3.5-5.1)
[2019-09-21 22:40] LABS: Magnesium 2.3 mg/dl (1.8-2.4); Troponin I 0.802 ng/ml (0-0.045)
[2019-09-21 22:47] LABS: Partial Thromboplastin Ratio 1.9
[2019-09-21] MEDS ORDERED: DIGOXIN 125 MCG in SYRINGE 9.5 ML IV ONE (23:00)
[2019-09-22] MEDS: METOPROLOL TARTRATE 1 MG/ML VIAL IV SCH ×4 (00:22→17:31)
[2019-09-22] MEDS: POTASSIUM CHLORIDE / WTR 10 MEQ/100 ML PLCT IV SCH ×3 (00:24→09:15)
[2019-09-22 04:45] LABS: Hematocrit (blood only) 39.2 % (42-52); Hemoglobin 12.8 g/dL (14.0-18.0); Mean Corpuscular Hemoglobin 28.2 pg (25-34); Mean Corpuscular Hgb Conc 32.7 g/dL (32-36); Mean Corpuscular Volume 86.3 fL (80-100); Mean Platelet Volume 13.1 fL (7.4-10.4); Platelet Count 181 K/uL (130-400); RDW Coefficient of Variation 13.7 % (11.5-14.5); RDW Standard Deviation 43.3 fL (36.4-46.3); Red Blood Count 4.54 M/uL (4.7-6.1); White Blood Count 11.69 K/uL (4.8-10.8)
--- NOTE | 2019-09-22 04:52 | Billing Data ---
Date of Service September 21, 2019 Coding Level of Care Code 07857 Subseq Hosp Care Lvl 3
--- NOTE | 2019-09-22 04:53 | Billing Data ---
Date of Service September 21, 2019 Coding Level of Care Code Critical Care 1st 30-74 mins Time Spent (min) 45 Comment I have personally spent 45 minutes of critical care time in the direct management of this patient. This is a life/limb threatening event. This includes time spent evaluating patient, direct bedside care, chart review, placing orders, interpretation of diagnostic studies, discussion with consultants, patient, and/or family members regarding treatment decisions, as well as other required patient management activities. This time is exclusive of all separately billable procedures, and teaching time and separate from and in addition to any other critical care service time.
--- NOTE | 2019-09-22 04:55 | Communication Note ---
Date of Service: September 21, 2019 Clinical update at 1600: Patient's condition has decompensated and developed A. fib with RVR with aberrancy. We have administered additional doses of IV beta- krzysztof, I have also started digoxin intravenously. I discussed the case with Dr. Jones of cardiology I have also discussed with Dr. Lemus of hospitalist medicine. The patient has been transferred to telemetry status, he will be upgraded to ICU given significant arrhythmia and hemodynamic instability.
[2019-09-22 04:58] LABS: Albumin Level 2.6 gm/dl (3.4-5.0); BUN Creatinine Ratio 24.5 (10-20); Calcium 8.1 mg/dl (8.5-10.1); Creatinine Clr Calc Pharmacy 75.5 ml/min; Est GFR (African American) 77.2; Est GFR (Non-African American) 66.7; Magnesium 2.3 mg/dl (1.8-2.4); Potassium 4.3 mmol/L (3.5-5.1)
[2019-09-22 04:59] LABS: Partial Thromboplastin Ratio 1.7
[2019-09-22 05:14] LABS: Partial Thromboplastin Time 45.4 Seconds (21.0-31.0)
[2019-09-22 05:27] LABS: Bilirubin Direct 0.1 mg/dl (0-0.2); Bilirubin,Total 0.5 mg/dl (0.2-1); Phosphorus 4.2 mg/dl (2.5-4.9); Total Protein 6.7 gm/dl (6.4-8.2); Troponin I 0.68 ng/ml (0-0.045)
[2019-09-22] MEDS: AMIODARONE / D5W 360 MG/200 ML BAG IV SCH ×2 (05:41→16:51)
[2019-09-22] MEDS ORDERED: HEPARIN IV BOLUS 4,000 UNITS in SYRINGE 0 ML IV ONE (06:00)
--- NOTE | 2019-09-22 06:58 | XRay Report ---
XR chest 1V portable HISTORY: 63 years-old Male CHF acute shortness of breath with congestive heart failure COMPARISON: Chest radiograph 09/21/2019 TECHNIQUE: Portable AP view of the chest FINDINGS: Cardiac silhouette is enlarged, unchanged. Pulmonary vascular congestion with progressive interstitia l opacities. Small pleural effusions without pneumothorax. Bibasilar densities have also progressed. Degenerative changes of the shoulders and spine. IMPRESSION: 1. Cardiomegaly with mildly worsened pulmonary edema. 2. Small pleural effusions with progressed bibasilar opacities suggestive of probable atelectasis. The above report was generated using voice recognition software. It may contain grammatical, syntax o r spelling errors. Electronically signed by: Guicho Mitchell M.D. 09/22/2019 6:57 AM
--- NOTE | 2019-09-22 07:16 | Critical Care Progress Note ---
Date of Service September 22, 2019 Assessment & Plan (1) Admitted to intensive care unit: Reason Critically Ill: 63-year-old male with acute hypoxic respiratory failure in the setting of CHF exacerbation plus/minus aspiration event requiring close hemodynamic monitoring and monitoring for need for emergent airway intervention given tenuous status. NEURO - CAM ICU: Unable to assess. History of hemorrhagic CVA status post traumatic event: -Answer simple questions yes/no. -No focal neurological deficits on exam. Seizure D/O Continue Keppra CARDIAC/VASCULAR - Wide-complex tachycardia felt to be A. fib with RVR. Aim for slower heart rate to facility intracardiac filling in the patient with known severe aortic stenosis. -Continue amiodarone as prior. -PRN metoprolol -sophie 2.5 q6 -On Dig 125mcg q day -Chest x-ray shows continued pulmonary edema, received 1 dose of IV Lasix -Cardiology consulted following the recommendations -We will need medical therapy for rate control -Known severe aortic stenosis and severe left ventricular dysfunction by echo -Needs further diuresis -Chest x-ray consistent with pulmonary edema A. fib -Eliquis at home. Agree with heparin drip at this time. -Continue amiodarone. -Maximize electrolytes. K greater than 4 mag greater than 2 -Monitor on telemetry. -At times experiencing aberrancy which improved with metoprolol Severe per echo EF 20 to 25%, conservative management given history of TBI. RESPIRATORY - Acute hypoxic respiratory failure: Related to pulmonary edema and possible aspiration event. -Actively diuresing. -Positive pressure ventilatory techniques. -d/c'd zosyn -No intubation DNR/DNI GI/NUTRITION - Evaluated by speech and swallow today they recommend aspiration precautions, alternate solids and liquids, supervised meals, fully alert and upright, single small bites, small sips, slow rate Prophylaxis: Famotidine RENAL/LYTES - No significant electrolyte derangements. Monitor closely for imbalances status post aggressive diuresis. - Wisdom in place - Strict I&Os. ENDO - No h/o DM or Thyroid Dz BSGs per unit protocol. ISS --> gtt per unit policy. HEME - Stable H&H ID - Aspiration event: -Chest x-ray this morning consistent with pulmonary edema -lactate wnl LINES/IV ACCESS - PIVs x2 Wisdom DVT PROPHYLAXIS - Heparin gtt SCDs Thank you for allowing us to participate in the care of this patient. Please refer to my attending physician's documentation for any further recommendations. (2) Atrial fibrillation with RVR: (3) Pneumonia: (4) CHF due to valvular disease: (5) Aspiration into airway: (6) Seizure disorder: (7) TBI (traumatic brain injury): (8) Pulmonary edema: (9) Respiratory failure with hypoxia: (10) CHF (congestive heart failure): Supervising Physician Co-Signing Physician Notes Dr. Reyes was resident physician during care of patient. I separately evaluated patient for thomas portions of the history and the exam. I was present during the critical portion of medical decision making, and I discussed the case with the resident. I generally agree with the findings and plan. Patient was discussed in multidisciplinary rounds, anticipated family meeting tomorrow with regards to goals of care. At this time the patient's hemodynamics have improved he has much improved rate control. I discussed the case with Dr. Jones, patient to remain in ICU due to frequency of hemodynamic instability pending discussion with family tomorrow Subjective Patient resting comfortably in bed in no acute distress. Yesterday evening increase shortness of breath and experienced A. fib with aberrancy resolved with metoprolol. Patient making urine, no bowel movements, tolerating diet. Physical Exam Physical Exam: General: No acute distress HEENT: Normocephalic atraumatic Neck: Normal to visual inspection Cardiac: Irregularly irregular rhythm, positive murmur rubs or gallops, 2+ edema bilaterally, no calf tenderness Respiratory: Bibasilar basilar rales present, no wheezes or rhonchi, symmetrical chest rise GI: Normal bowel sounds, soft, nontender, nondistended MSK: Unable to assess Skin: No concerns at present Neuro: Alert Psych: Cooperative Results & Data Vital Signs (Past 12 Hours) Vital Signs Temp Pulse Pulse Resp BP BP Pulse Ox 09/22/19 07:05 70 18 97 09/22/19 06:00 69 20 103/70 96 09/22/19 05:47 77 19 97 09/22/19 05:00 72 18 96/73 L 96 09/22/19 04:00 36.7 C 72 18 90/72 L 97 09/22/19 03:20 67 18 97 09/22/19 03:00 81 18 104/60 96 09/22/19 02:00 84 20 91/65 L 94 09/22/19 01:00 87 20 89/66 L 95 09/22/19 00:00 37.1 C 85 22 92/73 L 95 09/21/19 23:25 96 H 20 95 09/21/19 23:22 96 H 09/21/19 23:00 92 H 22 103/84 93 09/21/19 22:37 94 H 20 92 09/21/19 22:00 102 H 20 101/70 94 09/21/19 21:00 120 H 20 113/77 95 09/21/19 20:34 135 H 140/107 H 09/21/19 20:00 36.6 C 140 H 34 H 109/88 94 Laboratory Results 09/22/19 09/22/19 09/22/19 Range/Units 04:22 04:22 04:22 WBC (4.8-10.8) K/uL RBC (4.7-6.1) M/uL Hgb (14.0-18.0) g/dL Hct (42-52) % MCV (80-100) fL MCH (25-34) pg MCHC (32-36) g/dL RDW Std Deviation (36.4-46.3) fL RDW Coeff of Qing (11.5-14.5) % Plt Count (130-400) K/uL MPV (7.4-10.4) fL APTT 45.4 H* (21.0-31.0) Seconds PTT Ratio 1.7 Sodium 136 Potassium 4.3 Chloride 104 Carbon Dioxide 29 Anion Gap 3.0 BUN 28 H Creatinine 1.16 Est Cr Clr Drug Dosing 75.5 Est GFR ( Amer) 77.2 Est GFR (Non-Af Amer) 66.7 BUN/Creatinine Ratio 24.5 H Glucose 134 H POC Glucose (70-99) Calcium 8.1 L Phosphorus 4.2 Magnesium 2.3 Total Bilirubin 0.5 (0.2-1) mg/dl Direct Bilirubin 0.1 (0-0.2) mg/dl AST 12 L (15-37) U/L ALT 16 (12-78) U/L Alkaline Phosphatase 49 (45-117) U/L Troponin I 0.680 H* (0-0.045) ng/ml Total Protein 6.7 (6.4-8.2) gm/dl Albumin 2.6 L (3.4-5.0) gm/dl Digoxin 1.1 (0.8-2.0) ng/ml 09/22/19 09/21/19 09/21/19 Range/Units 04:22 22:02 22:02 WBC 11.69 H (4.8-10.8) K/uL RBC 4.54 L (4.7-6.1) M/uL Hgb 12.8 L (14.0-18.0) g/dL Hct 39.2 L (42-52) % MCV 86.3 (80-100) fL MCH 28.2 (25-34) pg MCHC 32.7 (32-36) g/dL RDW Std Deviation 43.3 (36.4-46.3) fL RDW Coeff of Qing 13.7 (11.5-14.5) % Plt Count 181 (130-400) K/uL MPV 13.1 H (7.4-10.4) fL APTT 51.0 H* (21.0-31.0) Seconds PTT Ratio 1.9 Sodium Potassium 3.9 Chloride Carbon Dioxide Anion Gap BUN Creatinine Est Cr Clr Drug Dosing Est GFR ( Amer) Est GFR (Non-Af Amer) BUN/Creatinine Ratio Glucose POC Glucose (70-99) Calcium Phosphorus Magnesium 2.3 Total Bilirubin (0.2-1) mg/dl Direct Bilirubin (0-0.2) mg/dl AST (15-37) U/L ALT (12-78) U/L Alkaline Phosphatase (45-117) U/L Troponin I 0.802 H* (0-0.045) ng/ml Total Protein (6.4-8.2) gm/dl Albumin (3.4-5.0) gm/dl Digoxin (0.8-2.0) ng/ml 09/21/19 09/21/19 09/21/19 Range/Units 20:58 17:58 15:20 WBC (4.8-10.8) K/uL RBC (4.7-6.1) M/uL Hgb (14.0-18.0) g/dL Hct (42-52) % MCV (80-100) fL MCH (25-34) pg MCHC (32-36) g/dL RDW Std Deviation (36.4-46.3) fL RDW Coeff of Qing (11.5-14.5) % Plt Count (130-400) K/uL MPV (7.4-10.4) fL APTT 36.7 H (21.0-31.0) Seconds PTT Ratio 1.4 Sodium 135 L Potassium Chloride 102 Carbon Dioxide 25 Anion Gap 8.0 BUN 24 H Creatinine 1.21 D Est Cr Clr Drug Dosing 72.4 Est GFR ( Amer) 73.4 Est GFR (Non-Af Amer) 63.3 BUN/Creatinine Ratio 20.1 H Glucose 172 H POC Glucose 190 H (70-99) Calcium 8.8 Phosphorus 3.5 Magnesium Total Bilirubin (0.2-1) mg/dl Direct Bilirubin (0-0.2) mg/dl AST (15-37) U/L ALT (12-78) U/L Alkaline Phosphatase (45-117) U/L Troponin I (0-0.045) ng/ml Total Protein (6.4-8.2) gm/dl Albumin (3.4-5.0) gm/dl Digoxin (0.8-2.0) ng/ml 09/21/19 09/21/19 09/21/19 Range/Units 15:20 11:00 09:21 WBC (4.8-10.8) K/uL RBC (4.7-6.1) M/uL Hgb (14.0-18.0) g/dL Hct (42-52) % MCV (80-100) fL MCH (25-34) pg MCHC (32-36) g/dL RDW Std Deviation (36.4-46.3) fL RDW Coeff of Qing (11.5-14.5) % Plt Count (130-400) K/uL MPV (7.4-10.4) fL APTT (21.0-31.0) Seconds PTT Ratio Sodium Cancelled Potassium Cancelled Chloride Cancelled Carbon Dioxide Cancelled Anion Gap Cancelled BUN Cancelled Creatinine Cancelled Est Cr Clr Drug Dosing Cancelled Est GFR ( Amer) Cancelled Est GFR (Non-Af Amer) Cancelled BUN/Creatinine Ratio Cancelled Glucose Cancelled POC Glucose 111 H (70-99) Calcium Cancelled Phosphorus Cancelled Magnesium Cancelled Total Bilirubin (0.2-1) mg/dl Direct Bilirubin (0-0.2) mg/dl AST (15-37) U/L ALT (12-78) U/L Alkaline Phosphatase (45-117) U/L Troponin I 0.796 H* 1.100 H* (0-0.045) ng/ml Total Protein (6.4-8.2) gm/dl Albumin (3.4-5.0) gm/dl Digoxin (0.8-2.0) ng/ml Medications Administered Current Inpatient Medications Amiodarone HCl (Cordarone) 200 mg PO BIDM [facility] Stop: 10/21/19 16:59 Last Admin: 09/21/19 16:57 Dose: 200 mg Documented by: Heparin Sodium/Dextrose (Heparin Sodium/Dextrose) 25,000 units in 500 mls @ 32 mls/hr IV .[id number] [facility]; Protocol Stop: 10/20/19 17:29 Last Admin: 09/22/19 07:23 Dose: 1,600 units/hr, 32 mls/hr Documented by: Digoxin 125 mcg/ Syringe 10 mls @ 2 mls/min IV DAILY@1600 [facility] Stop: 10/22/19 15:59 Amiodarone HCl/Dextrose (Nexterone / D5w) 360 mg in 200 mls @ 16.667 mls/hr IV .Q12H [facility] Stop: 10/21/19 17:14 Last Infusion: 09/22/19 06:45 Dose: 0.5 mg/min, 16.7 mls/hr Documented by: Famotidine 20 mg/ Syringe 5 mls @ 2.5 mls/min IV BID [facility] Stop: 10/21/19 20:59 Last Admin: 09/22/19 07:58 Dose: 2.5 mls/min Documented by: Levetiracetam 500 mg/ Dextrose 105 mls @ 420 mls/hr IV Q12 [facility] Stop: 10/21/19 20:59 Last Infusion: 09/22/19 08:14 Dose: Infused Documented by: Potassium Chloride (K Nakul / Wtr) 10 meq in 100 mls @ 100 mls/hr IV Q1H [facility] Stop: 09/22/19 10:29 Last Admin: 09/22/19 08:18 Dose: 100 mls/hr Documented by: Metoprolol Tartrate (Lopressor) 12.5 mg PO BID [facility] Stop: 10/21/19 20:59 Last Admin: 09/21/19 19:44 Dose: 12.5 mg Documented by: Metoprolol Tartrate (Lopressor) 2.5 mg IV Q6 [facility] Stop: 10/22/19 00:00 Last Admin: 09/22/19 06:14 Dose: Not Given Documented by: Morphine Sulfate (Morphine Sulfate) 0.5 mg IV Q1H PRN PRN Reason: dyspnea or pain Stop: 10/05/19 19:41 Last Admin: 09/21/19 21:04 Dose: 0.5 mg Documented by: Ondansetron HCl (Zofran) 4 mg IV Q6H PRN PRN Reason: Nausea Stop: 10/21/19 20:19 Last Admin: 09/21/19 20:29 Dose: 4 mg Documented by: Resident Activity Tracking Resident Involvement: Resident Care Provided Care Provided: Adult Hospital Medicine (ICU ) (1) Respiratory failure with hypoxia Chronicity: unspecified Qualified Code(s): J96.91 - Respiratory failure, unspecified with hypoxia (2) CHF (congestive heart failure) Heart failure chronicity: acute Heart failure type: diastolic Qualified Code(s): I50.31 - Acute diastolic (congestive) heart failure (3) Pneumonia Laterality: bilateral Lung location: unspecified part of lung Pneumonia type: due to unspecified organism Qualified Code(s): J18.9 - Pneumonia, unspecified organism
[2019-09-22] MEDS: HEPARIN SODIUM/DEXTROSE 25,000 UNITS/500 ML BAG IV SCH (07:23)
[2019-09-22] MEDS: FAMOTIDINE 20 MG in SYRINGE 3 ML IV SCH ×2 (07:58→20:39)
--- NOTE | 2019-09-22 07:58 | Hospitalist Progress Note ---
Date of Service September 22, 2019 Assessment & Plan (1) Respiratory failure with hypoxia: O2 saturation at time of presentation was 79% (? FIO2). Chest x-ray showed pulmonary edema. Suspected aspiration. Received O2 + ventilatory support with BiPAP. Specific problems addressed below. Titrate supplemental O2. (2) Elevated lactic acid level: Serum lactate 3.1 at time of admission, repeat 1.9. Procalcitonin normal. Elevated lactate probably due to hypoxia, not sepsis. (3) CHF (congestive heart failure): Pulmonary edema at time of admission. Echo Jul 2019 showed LVEF 45% with severe . Did not require diuretic therapy at that time. Acute hypoxic respiratory failure at time of admission. Chest x-ray demonstrated pulmonary edema. Echo now shows LVEF 20-25% with severe and mod MR. Acute on chronic left ventricular heart failure due to severe aortic stenosis + systolic heart failure. No LIZBET or ARB due to severe aortic stenosis. 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 Chest x-ray this morning shows persistent pulmonary edema. IV furosemide x 1 ordered. (4) Atrial fibrillation: Chronic atrial fibrillation. At times, with RVR +/- aberrancy. On metoprolol for rate control and apixaban at home. Currently receiving metoprolol, amiodarone, digoxin, IV heparin. (5) Aortic stenosis, severe: Severe per echo; unable to determine if aortic valve bicuspid or tricuspid. Reduced LVEF- 45% in July, now 20-25%. Conservative management previously recommended because of traumatic brain injury and ongoing neurocognitive problems. Cardiac prognosis poor without intervention. ? benefit with reduced LVEF. Discuss further with Cardiology. (6) Elevated troponin level: Troponin I as high as 1.72. Suspect demand ischemia secondary to tachycardia, CHF, hypoxia. (7) Aspiration into airway: Suspected aspiration after emesis morning of admission. Seen by [employer] ASSOCIATE. No apparent aspiration per bedside swallowing evaluation. Continue aspiration precautions. (8) Hypertension: Prescribed metoprolol and amlodipine as outpatient. Fluctuating hemodynamics. Cardiovascular meds as noted above. (9) Sleep apnea: Recently diagnosed with sleep apnea and prescribed CPAP or BiPAP, ? with O2. Need to obtain report from sleep study. (10) Hyperglycemia: Random glucose day of admission 212. Not diabetic. Hgb A1C 5.6. FBS this morning = 134. Insulin coverage as needed. (11) Seizure disorder: Continue levetiracetam- parenterally while NPO. (12) TBI (traumatic brain injury): S/P closed head injury with intracranial hemorrhage. Ongoing neurocognitive deficits. (13) Do not resuscitate status: Per discussion with family: Do not attempt resuscitation in event of a cardiopulmonary arrest. Intubation / mechanical ventilation would be appropriate for ventilatory support for reversible disease. (14) DVT prophylaxis: Usually takes apixaban for AF. Now receiving IV heparin due to NPO status. (15) Discharge planning issues: Discharge disposition to be determined. Needs to establish with PCP in the area. Subjective Recheck for multiple problems. Patient seen in ICU around 0735. Last evening was more SOB and experiencing rapid AF with aberrancy. Also had an episode of N & V. Received digoxin, metoprolol, IV furosemide. Rate improved. Tolerated BiPAP during the night. Comfortable on NC this morning. Review of Systems: Difficult to obtain due to pt's cognitive status. Physical Exam Constitutional: no acute distress Eyes: + anicteric sclerae Respiratory: no respiratory distress Auscultation: + rales (bibasilar) Cardiovascular: Rate/Rhythm: + irregularly irregular Heart Sounds: + murmur (III/ sys murmur at base); no gallop (none appreciated) and no cardiac rub Extremities: + edema (2+ pretibial); no calf tenderness Gastrointestinal (Abdomen): normal bowel sounds, soft, nontender, no hepatosplenomegaly Musculoskeletal: Extremities: no cyanosis Skin: no rashes, warm and dry Psychiatric: Orientation: alert Genitourinary: Wisdom cath Results & Data Vital Signs (Past 12 Hours) Vital Signs Temp Pulse Pulse Resp BP BP Pulse Ox 09/22/19 07:05 70 18 97 09/22/19 06:00 69 20 103/70 96 09/22/19 05:47 77 19 97 09/22/19 05:00 72 18 96/73 L 96 09/22/19 04:00 36.7 C 72 18 90/72 L 97 09/22/19 03:20 67 18 97 09/22/19 03:00 81 18 104/60 96 09/22/19 02:00 84 20 91/65 L 94 09/22/19 01:00 87 20 89/66 L 95 09/22/19 00:00 37.1 C 85 22 92/73 L 95 09/21/19 23:25 96 H 20 95 09/21/19 23:22 96 H 09/21/19 23:00 92 H 22 103/84 93 09/21/19 22:37 94 H 20 92 09/21/19 22:00 102 H 20 101/70 94 09/21/19 21:00 120 H 20 113/77 95 09/21/19 20:34 135 H 140/107 H 09/21/19 20:00 36.6 C 140 H 34 H 109/88 94 Laboratory Results Laboratory Results - last 24 hr 09/21/19 09/21/19 09/21/19 07:54 09:21 11:00 WBC RBC Hgb Hct MCV MCH MCHC RDW Std Deviation RDW Coeff of Qing Plt Count MPV APTT 42.7 H PTT Ratio 1.6 Sodium Potassium Chloride Carbon Dioxide Anion Gap BUN Creatinine Est Cr Clr Drug Dosing Est GFR ( Amer) Est GFR (Non-Af Amer) BUN/Creatinine Ratio Glucose POC Glucose 111 H Calcium Phosphorus Magnesium Total Bilirubin Direct Bilirubin AST ALT Alkaline Phosphatase Troponin I 1.100 H* Total Protein Albumin Digoxin 09/21/19 09/21/19 09/21/19 15:20 15:20 17:58 WBC RBC Hgb Hct MCV MCH MCHC RDW Std Deviation RDW Coeff of Qing Plt Count MPV APTT 36.7 H PTT Ratio 1.4 Sodium Cancelled 135 L Potassium Cancelled Chloride Cancelled 102 Carbon Dioxide Cancelled 25 Anion Gap Cancelled 8.0 BUN Cancelled 24 H Creatinine Cancelled 1.21 D Est Cr Clr Drug Dosing Cancelled 72.4 Est GFR ( Amer) Cancelled 73.4 Est GFR (Non-Af Amer) Cancelled 63.3 BUN/Creatinine Ratio Cancelled 20.1 H Glucose Cancelled 172 H POC Glucose Calcium Cancelled 8.8 Phosphorus Cancelled 3.5 Magnesium Cancelled Total Bilirubin Direct Bilirubin AST ALT Alkaline Phosphatase Troponin I 0.796 H* Total Protein Albumin Digoxin 09/21/19 09/21/19 09/21/19 20:58 22:02 22:02 WBC RBC Hgb Hct MCV MCH MCHC RDW Std Deviation RDW Coeff of Qing Plt Count MPV APTT 51.0 H* PTT Ratio 1.9 Sodium Potassium 3.9 Chloride Carbon Dioxide Anion Gap BUN Creatinine Est Cr Clr Drug Dosing Est GFR ( Amer) Est GFR (Non-Af Amer) BUN/Creatinine Ratio Glucose POC Glucose 190 H Calcium Phosphorus Magnesium 2.3 Total Bilirubin Direct Bilirubin AST ALT Alkaline Phosphatase Troponin I 0.802 H* Total Protein Albumin Digoxin 09/22/19 09/22/19 09/22/19 04:22 04:22 04:22 WBC 11.69 H RBC 4.54 L Hgb 12.8 L Hct 39.2 L MCV 86.3 MCH 28.2 MCHC 32.7 RDW Std Deviation 43.3 RDW Coeff of Qing 13.7 Plt Count 181 MPV 13.1 H APTT 45.4 H* PTT Ratio 1.7 Sodium 136 Potassium 4.3 Chloride 104 Carbon Dioxide 29 Anion Gap 3.0 BUN 28 H Creatinine 1.16 Est Cr Clr Drug Dosing 75.5 Est GFR ( Amer) 77.2 Est GFR (Non-Af Amer) 66.7 BUN/Creatinine Ratio 24.5 H Glucose 134 H POC Glucose Calcium 8.1 L Phosphorus 4.2 Magnesium 2.3 Total Bilirubin 0.5 Direct Bilirubin 0.1 AST 12 L ALT 16 Alkaline Phosphatase 49 Troponin I 0.680 H* Total Protein 6.7 Albumin 2.6 L Digoxin 09/22/19 04:22 WBC RBC Hgb Hct MCV MCH MCHC RDW Std Deviation RDW Coeff of Qing Plt Count MPV APTT PTT Ratio Sodium Potassium Chloride Carbon Dioxide Anion Gap BUN Creatinine Est Cr Clr Drug Dosing Est GFR ( Amer) Est GFR (Non-Af Amer) BUN/Creatinine Ratio Glucose POC Glucose Calcium Phosphorus Magnesium Total Bilirubin Direct Bilirubin AST ALT Alkaline Phosphatase Troponin I Total Protein Albumin Digoxin 1.1 Microbiology 09/20/19 14:35 Blood Aerobic Blood Culture - Preliminary No growth in Aerobic bottle after 24 hours. 09/20/19 14:35 Blood Anaerobic Blood Culture - Preliminary No growth in Anaerobic bottle after 24 hours. 09/20/19 13:51 Blood Aerobic Blood Culture - Preliminary No growth in Aerobic bottle after 24 hours. 09/20/19 13:51 Blood Anaerobic Blood Culture - Preliminary No growth in Anaerobic bottle after 24 hours. Diagnostic Findings Chest x-ray reviewed by undersigned and formally interpreted by Radiology. Cardiomegaly, persistent pulmonary edema, small pleural effusions, bibasilar densities felt to most likely be secondary to atelectasis. (1) Respiratory failure with hypoxia Chronicity: unspecified Qualified Code(s): J96.91 - Respiratory failure, unspecified with hypoxia (2) CHF (congestive heart failure) Heart failure chronicity: acute Heart failure type: diastolic Qualified Code(s): I50.31 - Acute diastolic (congestive) heart failure
[2019-09-22] MEDS ORDERED: DEXTROSE 50% 50 ML SYRINGE IV PRN (11:00)
[2019-09-22] MEDS ORDERED: GLUCAGON FOR INJ 1 MG VIAL IM PRN (11:00)
[2019-09-22] MEDS ORDERED: GLUCOSE 10 TABS/TUBE PO PRN (11:00)
[2019-09-22] MEDS ORDERED: CARBOHYDRATES FOR HYPOGLYCEMIA PO PRN (11:00)
[2019-09-22] MEDS ORDERED: GLUCOSE 40% GEL 15 GM TUBE PO PRN (11:00)
[2019-09-22] MEDS: INSULIN ASPART 100 UNITS/ML 3 ML PEN SC SCH ×3 (11:44→20:58)
--- NOTE | 2019-09-22 11:52 | Cardiology Progress Note ---
Date of Service September 22, 2019 Assessment & Plan (1) Atrial fibrillation with RVR: Arrhythmias better controlled on combination of amiodarone metoprolol and digoxin. Chest x-ray consistent with persistent pulmonary edema though slightly improved from admission I's and O's still positive add furosemide 40 mg IV now We will add routine IV furosemide 20 twice daily (2) Aortic stenosis, severe: In part likely culprit of gradual decline, outpatient congestive heart failure. Per review of records patient not felt to be an interventional candidate Overall prognosis significantly limited (3) Respiratory failure with hypoxia: Acute pulmonary edema as inciting cause suspect gradual onset of heart failure with increasing heart rates followed by tachyarrhythmias leading to further pulmonary edema. (4) Pulmonary edema: Chest x-ray persistent pulmonary edema Subjective Patient seen and examined, chart, medications, telemetry reviewed. Rhythms have stabilized overnight but patient nauseated. Remains on IV amiodarone Physical Exam Constitutional: + ill appearing Neck: + thick neck Respiratory: no respiratory distress Auscultation: + diminished lung sounds Cardiovascular: Rate/Rhythm: + irregularly irregular Heart Sounds: + murmur (3/6 systolic, no diastolic) Extremities: + edema (2+) Gastrointestinal (Abdomen): normal bowel sounds, soft, nontender, no hepatosplenomegaly Results & Data Vital Signs (Past 12 Hours) Vital Signs Temp Pulse Pulse Resp BP BP Pulse Ox 09/22/19 11:46 89 114/96 09/22/19 08:00 36.4 C L 77 70 20 106/64 97 09/22/19 07:05 70 18 97 09/22/19 06:00 69 20 103/70 96 09/22/19 05:47 77 19 97 09/22/19 05:00 72 18 96/73 L 96 09/22/19 04:00 36.7 C 72 18 90/72 L 97 09/22/19 03:20 67 18 97 09/22/19 03:00 81 18 104/60 96 09/22/19 02:00 84 20 91/65 L 94 09/22/19 01:00 87 20 89/66 L 95 09/22/19 00:00 37.1 C 85 22 92/73 L 95 (1) Respiratory failure with hypoxia Chronicity: unspecified Qualified Code(s): J96.91 - Respiratory failure, unspecified with hypoxia
[2019-09-22 12:04] LABS: Partial Thromboplastin Ratio 2.2
[2019-09-22] MEDS ORDERED: FUROSEMIDE 40 MG in SYRINGE 0 ML IV STA (12:22)
--- NOTE | 2019-09-22 14:13 | Billing Data ---
Date of Service September 22, 2019 Coding Level of Care Code 35132 Subseq Hosp Care Lvl 3
[2019-09-22] MEDS ORDERED: DIGOXIN 125 MCG in SYRINGE 9.5 ML IV SCH (16:00)
[2019-09-22] MEDS: FUROSEMIDE 20 MG in SYRINGE 0 ML IV SCH (16:26)
[2019-09-23] MEDS: METOPROLOL TARTRATE 1 MG/ML VIAL IV SCH ×3 (00:10→11:33)
[2019-09-23] MEDS: HEPARIN SODIUM/DEXTROSE 25,000 UNITS/500 ML BAG IV SCH ×2 (00:10→16:16)
[2019-09-23 03:52] LABS: Hematocrit (blood only) 38.3 % (42-52); Hemoglobin 12.5 g/dL (14.0-18.0); Mean Corpuscular Hemoglobin 28.2 pg (25-34); Mean Corpuscular Hgb Conc 32.6 g/dL (32-36); Mean Corpuscular Volume 86.3 fL (80-100); Mean Platelet Volume 12.7 fL (7.4-10.4); Platelet Count 170 K/uL (130-400); RDW Coefficient of Variation 13.2 % (11.5-14.5); Red Blood Count 4.44 M/uL (4.7-6.1); White Blood Count 8.27 K/uL (4.8-10.8)
[2019-09-23 04:16] LABS: Partial Thromboplastin Time 53.4 Seconds (21.0-31.0)
[2019-09-23 04:26] LABS: BUN Creatinine Ratio 24.6 (10-20); Calcium 8.1 mg/dl (8.5-10.1); Creatinine Clr Calc Pharmacy 113.1 ml/min; Est GFR (Non-African American) 93.2; Phosphorus 2.9 mg/dl (2.5-4.9)
[2019-09-23] MEDS: AMIODARONE / D5W 360 MG/200 ML BAG IV SCH (04:50)
[2019-09-23 05:06] LABS: Potassium 3.7 mmol/L (3.5-5.1)
[2019-09-23 05:08] LABS: Magnesium 2.2 mg/dl (1.8-2.4)
--- NOTE | 2019-09-23 07:10 | XRay Report ---
XR chest 1V portable HISTORY: 63 years-old Male CHF follow-up study in a patient with congestive heart failure COMPARISON: Chest radiograph 09/22/2019 TECHNIQUE: Portable AP view of the chest FINDINGS: Cardiac silhouette is enlarged, unchanged. Pulmonary vascular congestion with interstitial opacities persist, generally unchanged. Trace pleural effusions with persistent bibasilar opacities. No pneumot horax. Degenerative changes of the shoulders and spine. IMPRESSION: 1. Cardiomegaly with unchanged pulmonary edema. 2. Trace pleural effusions with persistent bibasilar opacities. ACT 112: Negative or not required by law. The above report was generated using voice recognition software. It may contain grammatical, syntax o r spelling errors. Electronically signed by: Guicho Mitchell M.D. 09/23/2019 7:09 AM
[2019-09-23] MEDS: FUROSEMIDE 20 MG in SYRINGE 0 ML IV SCH ×2 (08:07→17:24)
[2019-09-23] MEDS: FAMOTIDINE 20 MG in SYRINGE 3 ML IV SCH (08:07)
[2019-09-23] MEDS: INSULIN ASPART 100 UNITS/ML 3 ML PEN SC SCH ×4 (08:13→20:46)
--- NOTE | 2019-09-23 08:42 | Critical Care Progress Note ---
Date of Service September 23, 2019 Assessment & Plan (1) Admitted to intensive care unit: Reason Critically Ill: 63-year-old male with acute hypoxic respiratory failure in the setting of CHF exacerbation plus/minus aspiration event requiring close hemodynamic monitoring and monitoring for need for emergent airway intervention given tenuous status. NEURO - CAM ICU: Unable to assess. History of hemorrhagic CVA status post traumatic event: -Answer simple questions yes/no. -No focal neurological deficits on exam. Seizure D/O Continue Keppra CARDIAC/VASCULAR - Wide-complex tachycardia felt to be A. fib with RVR. Aim for slower heart rate to facility intracardiac filling in the patient with known severe aortic stenosis. -Continue amiodarone as prior. -PRN metoprolol -Succinate 12.5 mg twice daily -On Dig 125mcg q day -Chest x-ray shows continued pulmonary edema, received 1 dose of IV Lasix -Cardiology consulted following the recommendations -We will need medical therapy for rate control, plan to tx to oral meds today -Known severe aortic stenosis and severe left ventricular dysfunction by echo -Needs further diuresis -Chest x-ray consistent with pulmonary edema -Continue IV furosemide and supplement with potassium -[place] does not feel the patient is a candidate for aortic valve repair A. fib -Eliquis at home. Agree with heparin drip at this time. -Continue amiodarone. -Maximize electrolytes. K greater than 4 mag greater than 2 -Monitor on telemetry. -At times experiencing aberrancy which improved with metoprolol -Focus on rate control Severe per echo EF 20 to 25%, conservative management given history of TBI. RESPIRATORY - Acute hypoxic respiratory failure: Related to pulmonary edema and possible aspiration event. -Actively diuresing. -Positive pressure ventilatory techniques. -d/c'd zosyn -No intubation DNR/DNI GI/NUTRITION - Evaluated by speech and swallow today they recommend aspiration precautions, alternate solids and liquids, supervised meals, fully alert and upright, single small bites, small sips, slow rate Prophylaxis: Famotidine RENAL/LYTES - No significant electrolyte derangements. Monitor closely for imbalances status post aggressive diuresis. - Wisdom in place - Strict I&Os. ENDO - No h/o DM or Thyroid Dz BSGs per unit protocol. ISS --> gtt per unit policy. HEME - Stable H&H ID - Aspiration event: -Chest x-ray this morning consistent with pulmonary edema -lactate wnl LINES/IV ACCESS - PIVs x2 Wisdom DVT PROPHYLAXIS - Heparin gtt SCDs dispo: stable for downgrade Thank you for allowing us to participate in the care of this patient. Please refer to my attending physician's documentation for any further recommendations. (2) Atrial fibrillation with RVR: (3) Pneumonia: (4) CHF due to valvular disease: (5) Aspiration into airway: (6) Seizure disorder: (7) TBI (traumatic brain injury): (8) Pulmonary edema: (9) Respiratory failure with hypoxia: (10) CHF (congestive heart failure): Supervising Physician Co-Signing Physician Notes Dr. Reyes was resident physician during care of patient. I separately evaluated patient for thomas portions of the history and the exam. I was present during the critical portion of medical decision making, and I discussed the case with the resident. I generally agree with the findings and plan. Patient appears to be cardiovascularly optimized. Continuing potassium supplementation. Care will be transitioned to hospitalist team as they look to coordinate care into the outpatient setting Subjective Patient doing well this morning in no acute distress, no acute events overnight per nursing. Patient is tolerating his diet, voiding in the Wisdom, no bowel movement in the past 2 days, slept well overnight. Acute concerns are present related to disposition, there is a family meeting scheduled for later today. Otherwise all questions answered Physical Exam Physical Exam: General: No acute distress HEENT: Normocephalic atraumatic Neck: Normal to visual inspection Cardiac: Irregularly irregular rhythm, positive murmur rubs or gallops, 2+ edema bilaterally, no calf tenderness Respiratory: Bibasilar basilar rales present, no wheezes or rhonchi, symmetrical chest rise GI: Normal bowel sounds, soft, nontender, nondistended MSK: Unable to assess Skin: No concerns at present Neuro: Alert Psych: Cooperative Results & Data Vital Signs (Past 12 Hours) Vital Signs Temp Pulse Pulse Resp BP Pulse Ox 09/23/19 07:30 68 22 98 09/23/19 06:00 60 14 100/65 99 09/23/19 05:00 61 18 109/61 95 09/23/19 04:00 36.6 C 73 22 85/67 L 97 09/23/19 03:00 60 18 96/65 L 96 09/23/19 02:00 69 18 88/68 L 95 09/23/19 01:47 69 19 97 09/23/19 01:00 65 20 94/69 L 96 09/23/19 00:00 36.8 C 66 18 88/60 L 96 09/22/19 23:00 72 22 89/67 L 96 09/22/19 22:15 74 22 96 09/22/19 22:00 75 22 95/70 L 97 09/22/19 21:00 78 18 88/66 L 97 Laboratory Results 09/23/19 09/23/19 09/23/19 Range/Units 11:27 11:17 05:58 WBC (4.8-10.8) K/uL RBC (4.7-6.1) M/uL Hgb (14.0-18.0) g/dL Hct (42-52) % MCV (80-100) fL MCH (25-34) pg MCHC (32-36) g/dL RDW Std Deviation (36.4-46.3) fL RDW Coeff of Qing (11.5-14.5) % Plt Count (130-400) K/uL MPV (7.4-10.4) fL APTT (21.0-31.0) Seconds PTT Ratio Sodium (136-145) mmol/L Potassium (3.5-5.1) mmol/L Chloride (98-107) mmol/L Carbon Dioxide (21-32) mmol/L Anion Gap (3-11) BUN (7-18) mg/dl Creatinine (0.6-1.4) mg/dl Est Cr Clr Drug Dosing ml/min Est GFR ( Amer) Est GFR (Non-Af Amer) BUN/Creatinine Ratio (10-20) Glucose (70-99) mg/dl POC Glucose 102 H 117 H (70-99) Calcium (8.5-10.1) mg/dl Phosphorus (2.5-4.9) mg/dl Magnesium (1.8-2.4) mg/dl Digoxin 0.5 L (0.8-2.0) ng/ml 09/23/19 09/23/19 09/23/19 Range/Units 04:46 03:40 03:40 WBC (4.8-10.8) K/uL RBC (4.7-6.1) M/uL Hgb (14.0-18.0) g/dL Hct (42-52) % MCV (80-100) fL MCH (25-34) pg MCHC (32-36) g/dL RDW Std Deviation (36.4-46.3) fL RDW Coeff of Qing (11.5-14.5) % Plt Count (130-400) K/uL MPV (7.4-10.4) fL APTT 53.4 H* (21.0-31.0) Seconds PTT Ratio 2.0 Sodium 136 (136-145) mmol/L Potassium 3.7 (3.5-5.1) mmol/L Chloride 101 (98-107) mmol/L Carbon Dioxide 35 H (21-32) mmol/L Anion Gap 0 L (3-11) BUN 21 H (7-18) mg/dl Creatinine 0.84 D (0.6-1.4) mg/dl Est Cr Clr Drug Dosing 113.1 ml/min Est GFR ( Amer) 108.0 Est GFR (Non-Af Amer) 93.2 BUN/Creatinine Ratio 24.6 H (10-20) Glucose 114 H (70-99) mg/dl POC Glucose (70-99) Calcium 8.1 L (8.5-10.1) mg/dl Phosphorus 2.9 D (2.5-4.9) mg/dl Magnesium 2.2 (1.8-2.4) mg/dl Digoxin (0.8-2.0) ng/ml 09/23/19 09/22/19 09/22/19 Range/Units 03:40 20:44 15:55 WBC 8.27 (4.8-10.8) K/uL RBC 4.44 L (4.7-6.1) M/uL Hgb 12.5 L (14.0-18.0) g/dL Hct 38.3 L (42-52) % MCV 86.3 (80-100) fL MCH 28.2 (25-34) pg MCHC 32.6 (32-36) g/dL RDW Std Deviation 42.0 (36.4-46.3) fL RDW Coeff of Qing 13.2 (11.5-14.5) % Plt Count 170 (130-400) K/uL MPV 12.7 H (7.4-10.4) fL APTT (21.0-31.0) Seconds PTT Ratio Sodium (136-145) mmol/L Potassium (3.5-5.1) mmol/L Chloride (98-107) mmol/L Carbon Dioxide (21-32) mmol/L Anion Gap (3-11) BUN (7-18) mg/dl Creatinine (0.6-1.4) mg/dl Est Cr Clr Drug Dosing ml/min Est GFR ( Amer) Est GFR (Non-Af Amer) BUN/Creatinine Ratio (10-20) Glucose (70-99) mg/dl POC Glucose 116 H 139 H (70-99) Calcium (8.5-10.1) mg/dl Phosphorus (2.5-4.9) mg/dl Magnesium (1.8-2.4) mg/dl Digoxin (0.8-2.0) ng/ml Medications Administered Current Inpatient Medications Amiodarone HCl (Cordarone) 200 mg PO BIDM [facility] Stop: 10/21/19 16:59 Last Admin: 09/21/19 16:57 Dose: 200 mg Documented by: Amiodarone HCl (Cordarone) 200 mg PO QID [facility] Stop: 10/23/19 12:59 Last Admin: 09/23/19 14:24 Dose: 200 mg Documented by: Apixaban (Eliquis) 5 mg PO BID [facility] Stop: 10/23/19 20:59 Dextrose (Dextrose 50%) 25 - 50 ml IV UD PRN; Protocol PRN Reason: Hypoglycemia Protocol Stop: 10/22/19 10:59 Famotidine (Pepcid) 20 mg PO BID [facility] Stop: 10/23/19 20:59 Glucagon (Glucagen) 1 mg IM UD PRN; Protocol PRN Reason: Hypoglycemia Protocol Stop: 10/22/19 10:59 Glucose (Glucose 40%) 15 - 30 gm PO UD PRN; Protocol PRN Reason: Hypoglycemia Protocol Stop: 10/22/19 10:59 Glucose (Dex4 Glucose) 4 - 8 tabs PO UD PRN; Protocol PRN Reason: Hypoglycemia Protocol Stop: 10/22/19 10:59 Heparin Sodium/Dextrose (Heparin Sodium/Dextrose) 25,000 units in 500 mls @ 32 mls/hr IV .[id number] [facility]; Protocol Stop: 09/23/19 19:00 Last Titration: 09/23/19 15:10 Dose: 1,600 units/hr, 32 mls/hr Documented by: Digoxin 125 mcg/ Syringe 10 mls @ 2 mls/min IV DAILY@1600 [facility] Stop: 10/22/19 15:59 Last Admin: 09/22/19 16:26 Dose: 2 mls/min Documented by: Levetiracetam 500 mg/ Dextrose 105 mls @ 420 mls/hr IV Q12 [facility] Stop: 10/21/19 20:59 Last Infusion: 09/23/19 08:31 Dose: Infused Documented by: Furosemide 20 mg/ Syringe 2 mls @ 4 mls/min IV BID17 [facility] Stop: 10/22/19 16:59 Last Admin: 09/23/19 08:07 Dose: 4 mls/min Documented by: Insulin Aspart (Novolog Flexpen) 0 units SC ACHS [facility] Stop: 10/22/19 11:29 Last Admin: 09/23/19 11:32 Dose: 6 units Documented by: Metoprolol Succinate (Toprol Xl) 12.5 mg PO BID [facility] Stop: 10/23/19 12:59 Last Admin: 09/23/19 14:25 Dose: 12.5 mg Documented by: Miscellaneous (Carbohydrates For Hypoglycemia) 15 - 30 gm PO UD PRN PRN Reason: Hypoglycemia Treatment Stop: 10/22/19 10:59 Miscellaneous (Stop Order) 1 ea N/A TODAY@1900 [facility] Stop: 09/23/19 19:01 Morphine Sulfate (Morphine Sulfate) 0.5 mg IV Q1H PRN PRN Reason: dyspnea or pain Stop: 10/05/19 19:41 Last Admin: 09/21/19 21:04 Dose: 0.5 mg Documented by: Ondansetron HCl (Zofran) 4 mg IV Q6H PRN PRN Reason: Nausea Stop: 10/21/19 20:19 Last Admin: 09/21/19 20:29 Dose: 4 mg Documented by: Potassium Chloride (Klor-Con Pwd) 60 meq PO BID [facility] Stop: 09/25/19 21:01 Last Admin: 09/23/19 10:46 Dose: 60 meq Documented by: Resident Activity Tracking Resident Involvement: Resident Care Provided Care Provided: Adult Hospital Medicine (ICU) (1) Respiratory failure with hypoxia Chronicity: unspecified Qualified Code(s): J96.91 - Respiratory failure, unspecified with hypoxia (2) CHF (congestive heart failure) Heart failure chronicity: acute Heart failure type: diastolic Qualified Code(s): I50.31 - Acute diastolic (congestive) heart failure (3) Pneumonia Laterality: bilateral Lung location: unspecified part of lung Pneumonia type: due to unspecified organism Qualified Code(s): J18.9 - Pneumonia, unspecified organism
--- NOTE | 2019-09-23 09:07 | Palliative Care Consultation ---
Date of Consultation September 23, 2019 Assessment & Plan (1) Palliative care encounter: This is an unfortunate 63 year old male who presented to the [facility] from home with nausea, vomiting, and hypoxia as noted by their at home pulse oximetry. This patient has an unfortunate PMH that includes a traumatic brain injury in 11/2018 with associate subdural and parenchymal hemorrhages and prolonged inpatient stay at the [facility]. Additional PMH includes: severe Aortic stenosis with an LVEF of 45%, (now worsened to 20-25%) which was previously discovered and he was not deemed a surgical candidate due to the extent of his TBI. He has had a recent inpatient stay at [facility] from 08/04/19- 08/06/19 for new onset seizures for which he was started on Levetiracetam. Upon this admission, he was found to be in a rapid atrial fibrillation and also aspiration was suspected. 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 Ultimately, this patient is lethargic and unable to participate in any meaningful decision making conversations due to the extent of his brain injury. Palliative Care was consulted to discuss goals of care with the patients family. -I introduced myself with the patient in room 102 and is [place], daughter Trini, and son-in-law Jean Claude who is POA. The patient was able to look at me when I said his name, answer simple questions with yes and no, but was unable to participate fully in conversation. -Following my introduction, a family meeting was held by Dr. Lemus and myself with multiple family members including about 8 additional children Trey, Bobby, and Makeda and their spouses. -Dr. Lemus discussed the medical components regarding his heart failure and and worsening aortic stenosis. He discussed conversation that was held with the [facility] cardiology group who indicated that due to his advanced neurologic complicating factors and overall risk burden; that he ultimately would not be a good surgical candidate. -We discussed different options, including returning home with conservative outpatient management and returning home with hospice services. -The family has a very large support not only from a family standpoint, but also friends and a strong kalyn based roman catholic support. -Multiple conversations held at a variety of times during the day with family members asking very appropriate questions regarding current medical treatment, including supplemental care for private duty. -Ultimately, right now they have decided as a family that they would like to continue with current medical treatment over the next few days and once stable, work towards returning home with hospice services. -Since this morning, the patient has been downgraded out of ICU and is now in room 276-2 on meter inspector. -The patients son in law stated that they do have oxygen at home that is being rented through [employer] and also a [email or web address] chair. -We discussed that we would work on a seamless transition home with continued medications at this time. They are considering stopping home Eloquis at discharge knowing the risks vs benefits of increased fall risk vs stroke burden, for now continue anticoagulation. -He was on an Amiodarone gtt which is being converted to oral and his betablockers are being adjusted as well. Heparin is being discontinued and Eloquis restarted. -Case management following, and will discuss hospice with the family directly, including private duty caregiver roles. -Currently, no symptom management at this time. Overall, his prognosis is poor per Cardiology and the Area [facility] without surgical intervention. -Palliative care will continue to follow to provide support and answer any ad ditional questions. -Would be helpful to have a POLST complete prior to discharge, when medically stable. Pt is DNR. -PPS: 30% (2) TBI (traumatic brain injury): (3) Seizure disorder: (4) Aspiration into airway: (5) Atrial fibrillation with RVR: (6) CHF (congestive heart failure): Heart failure chronicity: acute Heart failure type: diastolic Qualified Code(s): I50.31 - Acute diastolic (congestive) heart failure (7) Respiratory failure with hypoxia: Chronicity: unspecified Qualified Code(s): J96.91 - Respiratory failure, unspecified with hypoxia History of Present Illness Reason for Consultation: goals of care Requesting Physician: Dr. Lemus Attending Physician: Deshaun Fink MD History of Present Illness This is an unfortunate 63 year old male who presented to the [facility] from home with nausea, vomiting, and hypoxia as noted by their at home pulse oximetry. This patient has an unfortunate PMH that includes a traumatic brain injury in 11/2018 with associate subdural and parenchymal hemorrhages and prolonged inpatient stay at the [facility]. Additional PMH includes: severe Aortic stenosis with an LVEF of 45%, (now worsened to 20-25%) which was previously discovered and he was not deemed a surgical candidate due to the extent of his TBI. He has had a recent inpatient stay at [facility] from 08/04/19- 08/06/19 for new onset seizures for which he was started on Levetiracetam. Upon this admission, he was found to be in a rapid atrial fibrillation and also aspiration was suspected. He has been evaluated by TIPPING MACHINE OPERATOR [employer] and aspiration percau tions are in place. Ultimately, this patient is lethargic and unable to participate in any meaningful decision making conversations due to the extent of his brain injury. Palliative Care was consulted to discuss goals of care with the patients family. Please see A/P for additional details. Thank you kindly for involving the palliative care team with this patient. We will follow and continue to assist this patients family with decision making. Allergies Allergy/AdvReac Type Severity Reaction Status Date / Time No Known Allergies Allergy Unverified 08/04/19 03:44 Home Medications Home Medications Medication Instructions Recorded Confirmed Type Eliquis 5 mg PO BID 08/04/19 09/20/19 History amlodipine 5 mg PO DAILY 08/04/19 09/20/19 History Oxygen Home #1 ea 08/06/19 Rx levetiracetam 500 mg PO BID #60 tab 08/06/19 09/20/19 Rx metoprolol tartrate 12.5 mg PO BID #30 tab 08/06/19 09/20/19 Rx Patient History Medical History (Updated 09/23/19 @ 09:07 by PAUL Gonzalez) Aortic stenosis, severe (Chronic) Atrial fibrillation (Chronic) CHF due to valvular disease (Chronic) Do not resuscitate status History of intracranial hemorrhage (Chronic) Hypertension Palliative care encounter Seizure disorder Sleep apnea TBI (traumatic brain injury) TBI (traumatic brain injury) Surgical History H/O craniotomy Family History Other Diabetes Heart disease Social History Preferred Language: Maori Communication Ability: Impaired 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 Beliefs That Will Affect Care: Jain Jain Beliefs: Mennonite marital status: Current Living Situation: Spouse 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 Feels Safe at Home: Yes Smoking Status: Never smoker Hx Alcohol Use: No Hx Substance Use: No Review of Systems Review of Systems: Unobtainable due to cognitive status Physical Exam Constitutional: + ill appearing and cooperative Respiratory: normal respiratory effort, lungs clear to auscultation Cardiovascular: Rate/Rhythm: regular rate and + irregularly irregular Heart Sounds: normal S1, normal S2 and + murmur (grade IV/) Extremities: + edema (+1-2 lower extremity ) Gastrointestinal (Abdomen): normal bowel sounds, soft, nontender, no hepatosplenomegaly Skin: no rashes, warm and dry Results & Data Vital Signs (Past 12 Hours) Vital Signs Temp Pulse Pulse Resp BP Pulse Ox 09/23/19 07:30 68 22 98 09/23/19 06:00 60 14 100/65 99 09/23/19 05:00 61 18 109/61 95 09/23/19 04:00 36.6 C 73 22 85/67 L 97 09/23/19 03:00 60 18 96/65 L 96 09/23/19 02:00 69 18 88/68 L 95 09/23/19 01:47 69 19 97 09/23/19 01:00 65 20 94/69 L 96 09/23/19 00:00 36.8 C 66 18 88/60 L 96 09/22/19 23:00 72 22 89/67 L 96 09/22/19 22:15 74 22 96 09/22/19 22:00 75 22 95/70 L 97 PG Care Time/CCT Total # of Minutes Spent Total Time Spent with Patient: Total time spent is greater than 50% in coordination of care (as documented) at patient's floor/unit and/or counseling patient: 125 Time Spent Midlevel Total time spent 125 minutes with > 50% of that time spent assessing the patient, discussing goals of care with the patient and family on multiple occasions and communicating with IDT regarding POC.
[2019-09-23] MEDS: POTASSIUM CHLORIDE PWD 20 MEQ PACK PO SCH ×2 (10:46→20:44)
--- NOTE | 2019-09-23 12:12 | Hospitalist Progress Note ---
Date of Service September 23, 2019 Assessment & Plan (1) Respiratory failure with hypoxia: Acute hypoxic respiratory failure Secondary to pulmonary edema; aspiration episode Chest x-ray showed pulmonary edema. Continue aspiration precaution Off BiPAP Zosyn discontinued Continue supplemental oxygen as needed (2) Elevated lactic acid level: Serum Lactate: 3.1 >>>1.9 Likely due to Hypoxia Normal Procalcitonin Blood Cx: No growth to date No obvious source of Infection (3) CHF (congestive heart failure): Acute on chronic systolic heart failure Pulmonary Edema Likely due to severe Aortic Stenosis and worsening heart failure ECHO: EF decreased to 20-25% from 45% in Jul 2019 CXR: showed pulmonary edema No LIZBET or ARB due to severe aortic stenosis. Continue IV diuretics Appreciate cardiology input Monitor volume status, I's and O's, daily weight-based Appreciate palliative care Input (4) Atrial fibrillation: Chronic atrial fibrillation RVR On metoprolol, apixaban at home. Continue amiodarone, digoxin, IV heparin GGT Also on IV Lopressor Rate is currently controlled Appreciate Cardiology Input (5) Aortic stenosis, severe: Severe per echo; unable to determine if aortic valve bicuspid or tricuspid. Reduced LVEF- 45% in July, now 20-25%. Conservative management previously recommended because of traumatic brain injury and ongoing neurocognitive problems. Cardiac prognosis poor without intervention. ? benefit with reduced LVEF. Discuss further with Cardiology. (6) Elevated troponin level: Troponin levels trended down Likely due to demand ischemia due to tachycardia, CHF, hypoxia. (7) Aspiration into airway: Continue aspiration precautions Speech eval done (8) Hypertension: BP stable Home meds on hold Monitor BP closely (9) Sleep apnea: Recently diagnosed with sleep apnea Monitor (10) Hyperglycemia: Prediabetes Monitor BGs Continue Insulin Sliding Scale as needed (11) Seizure disorder: Continue levetiracetam Resume to PO as able (12) TBI (traumatic brain injury): S/P closed head injury with intracranial hemorrhage. Ongoing neurocognitive deficits. (13) Do not resuscitate status: Per discussion with family by : Do not attempt resuscitation in event of a cardiopulmonary arrest. Intubation / mechanical ventilation would be appropriate for ventilatory support for reversible disease. (14) DVT prophylaxis: Currently on Heparin ggt (15) Discharge planning issues: To be determined Needs to establish with PCP in the area. Subjective Patient is seen and examined at bedside History is limited secondary to patient's mental status No recurrence of aspiration issues On amiodarone, digoxin, heparin GGT Heart rate is controlled Discussed with flight attendant/inflight manager, palliative care today No family at bedside Review of Systems Review of Systems: All systems reviewed & are unremarkable except as noted in HPI & below Physical Exam Physical Exam: Physical Exam: Vitals signs as noted above General Appearance:Obese, no apparent distress Head: normocephalic, Atraumatic Eyes: normal inspection, EOMI Neck: supple, Trachea midline Respiratory/Chest: Normal breath sounds, CTA, No accessory muscle use Cardiovascular: Irregularly irregular, systolic murmur Abdomen/GI:Soft, Non tender, Bowel sounds present Extremities/Musculoskelatal:normal inspection, B/L LE edema Neurologic/Psych:grossly no focal neurological deficits Skin: normal color, warm Results & Data Vital Signs (Past 12 Hours) Vital Signs Temp Pulse Pulse Resp BP BP Pulse Ox 09/23/19 11:33 92 H 116/43 L 09/23/19 11:20 70 27 H 116/43 L 97 09/23/19 10:18 73 20 90/71 L 95 09/23/19 09:00 72 17 101/74 94 09/23/19 08:00 36.4 C L 82 19 115/76 94 09/23/19 07:30 68 22 98 09/23/19 07:00 68 15 120/68 95 09/23/19 06:00 60 14 100/65 99 09/23/19 05:00 61 18 109/61 95 09/23/19 04:00 36.6 C 73 22 85/67 L 97 09/23/19 03:00 60 18 96/65 L 96 09/23/19 02:00 69 18 88/68 L 95 09/23/19 01:47 69 19 97 09/23/19 01:00 65 20 94/69 L 96 09/23/19 00:00 36.8 C 66 18 88/60 L 96 Laboratory Results Short CBC 09/23/19 Range/Units 03:40 WBC 8.27 (4.8-10.8) K/uL Hgb 12.5 L (14.0-18.0) g/dL Hct 38.3 L (42-52) % Plt Count 170 (130-400) K/uL BMP 12/18/19 12/18/19 03:40 04:46 Sodium 136 Potassium 3.7 Chloride 101 Carbon Dioxide 35 H BUN 21 H Creatinine 0.84 D Glucose 114 H Calcium 8.1 L (1) Respiratory failure with hypoxia Chronicity: unspecified Qualified Code(s): J96.91 - Respiratory failure, unspecified with hypoxia (2) CHF (congestive heart failure) Heart failure chronicity: acute Heart failure type: diastolic Qualified Code(s): I50.31 - Acute diastolic (congestive) heart failure
--- NOTE | 2019-09-23 12:27 | Cardiology Progress Note ---
Date of Service September 23, 2019 Assessment & Plan (1) Atrial fibrillation with RVR: Better control on current medications will transition to oral Plan change IV amiodarone to oral Change metoprolol tartrate to metoprolol succinate 12.5 mg twice daily first dose now Discontinue heparin and resume apixaban We will continue IV furosemide, supplement potassium (2) Aortic stenosis, severe: In part likely culprit of gradual decline, outpatient congestive heart failure. Per review of records patient not felt to be an interventional candidate and confirmed Overall prognosis limited (3) Respiratory failure with hypoxia: Acute pulmonary edema as inciting cause suspect gradual onset of heart failure with increasing heart rates followed by tachyarrhythmias leading to further pulmonary edema. Slowly improving without further atrial arrhythmias (4) Pulmonary edema: Subjective Patient seen and examined, chart, medications, telemetry reviewed. Patient sitting upright appears more comfortable this morning. No further wide-complex tachycardia rates controlled. Has manifested modest diuresis although chest x-ray still appears plethoric Physical Exam Constitutional: no acute distress Neck: + thick neck Respiratory: no respiratory distress Auscultation: + diminished lung sounds Cardiovascular: Rate/Rhythm: + irregularly irregular Heart Sounds: + murmur (3/6 systolic, no diastolic) Extremities: + edema (2+) Gastrointestinal (Abdomen): normal bowel sounds, soft, nontender, no hepatosplenomegaly Results & Data Vital Signs (Past 12 Hours) Vital Signs Temp Pulse Pulse Resp BP BP Pulse Ox 09/23/19 11:33 92 H 116/43 L 09/23/19 11:20 70 27 H 116/43 L 97 09/23/19 10:18 73 20 90/71 L 95 09/23/19 09:00 72 17 101/74 94 09/23/19 08:00 36.4 C L 82 19 115/76 94 09/23/19 07:30 68 22 98 09/23/19 07:00 68 15 120/68 95 09/23/19 06:00 60 14 100/65 99 09/23/19 05:00 61 18 109/61 95 09/23/19 04:00 36.6 C 73 22 85/67 L 97 09/23/19 03:00 60 18 96/65 L 96 09/23/19 02:00 69 18 88/68 L 95 09/23/19 01:47 69 19 97 09/23/19 01:00 65 20 94/69 L 96 Laboratory Results Laboratory Results - last 24 hr 09/22/19 09/22/19 09/23/19 15:55 20:44 03:40 WBC 8.27 RBC 4.44 L Hgb 12.5 L Hct 38.3 L MCV 86.3 MCH 28.2 MCHC 32.6 RDW Std Deviation 42.0 RDW Coeff of Qing 13.2 Plt Count 170 MPV 12.7 H APTT PTT Ratio Sodium Potassium Chloride Carbon Dioxide Anion Gap BUN Creatinine Est Cr Clr Drug Dosing Est GFR ( Amer) Est GFR (Non-Af Amer) BUN/Creatinine Ratio Glucose POC Glucose 139 H 116 H Calcium Phosphorus Magnesium Digoxin 09/23/19 09/23/19 09/23/19 03:40 03:40 04:46 WBC RBC Hgb Hct MCV MCH MCHC RDW Std Deviation RDW Coeff of Qing Plt Count MPV APTT 53.4 H* PTT Ratio 2.0 Sodium 136 Potassium 3.7 Chloride 101 Carbon Dioxide 35 H Anion Gap 0 L BUN 21 H Creatinine 0.84 D Est Cr Clr Drug Dosing 113.1 Est GFR ( Amer) 108.0 Est GFR (Non-Af Amer) 93.2 BUN/Creatinine Ratio 24.6 H Glucose 114 H POC Glucose Calcium 8.1 L Phosphorus 2.9 D Magnesium 2.2 Digoxin 09/23/19 09/23/19 09/23/19 05:58 11:17 11:27 WBC RBC Hgb Hct MCV MCH MCHC RDW Std Deviation RDW Coeff of Qing Plt Count MPV APTT PTT Ratio Sodium Potassium Chloride Carbon Dioxide Anion Gap BUN Creatinine Est Cr Clr Drug Dosing Est GFR ( Amer) Est GFR (Non-Af Amer) BUN/Creatinine Ratio Glucose POC Glucose 117 H 102 H Calcium Phosphorus Magnesium Digoxin 0.5 L (1) Respiratory failure with hypoxia Chronicity: unspecified Qualified Code(s): J96.91 - Respiratory failure, unspecified with hypoxia
[2019-09-23] MEDS: AMIODARONE 200 MG TAB PO SCH ×3 (14:24→20:45)
[2019-09-23] MEDS: METOPROLOL SUCC 25MG EXT REL TAB PO SCH ×2 (14:25→20:42)
--- NOTE | 2019-09-23 16:17 | Communication Note ---
Date of Service: September 23, 2019 Spoke with Cardiology at [facility] yesterday and today regarding options for severe aortic stenosis. They do not feel that he would be a candidate for intervention at this time due to his neurocognitive status. He would be at very high risk for complications from surgical valve repair or TAVR. They would be happy to see him in the future and reconsider options if his neurocognitive status improves significantly. Met with family and discussed cardiac status and shared recommendations from [facility]. Palliative Care DIGITAL ADVISOR met with the family as well to help determine priorities and plan of care; please refer to her documentation.
--- NOTE | 2019-09-23 17:21 | Billing Data ---
Date of Service September 23, 2019 Coding Level of Care Code 00759 Subseq Hosp Care Lvl 3
[2019-09-23] MEDS: FAMOTIDINE 20 MG TAB PO SCH (20:43)
[2019-09-23] MEDS: APIXABAN 5 MG TABLET PO SCH (20:44)
[2019-09-24 08:17] LABS: Hematocrit (blood only) 40.1 % (42-52); Hemoglobin 13.1 g/dL (14.0-18.0); Mean Corpuscular Hemoglobin 28.4 pg (25-34); Mean Corpuscular Hgb Conc 32.7 g/dL (32-36); Mean Platelet Volume 12.4 fL (7.4-10.4); Platelet Count 205 K/uL (130-400); RDW Coefficient of Variation 13.1 % (11.5-14.5); RDW Standard Deviation 41.5 fL (36.4-46.3); Red Blood Count 4.61 M/uL (4.7-6.1); White Blood Count 7.98 K/uL (4.8-10.8)
[2019-09-24 08:26] LABS: Partial Thromboplastin Ratio 1.2; Partial Thromboplastin Time 31.5 Seconds (21.0-31.0)
[2019-09-24] MEDS: AMIODARONE 200 MG TAB PO SCH ×4 (08:45→20:44)
[2019-09-24] MEDS: POTASSIUM CHLORIDE PWD 20 MEQ PACK PO SCH ×2 (08:45→20:56)
[2019-09-24] MEDS: APIXABAN 5 MG TABLET PO SCH ×2 (08:45→20:55)
[2019-09-24] MEDS: FUROSEMIDE 20 MG in SYRINGE 0 ML IV SCH (08:46)
[2019-09-24] MEDS: FAMOTIDINE 20 MG TAB PO SCH ×2 (08:46→20:55)
[2019-09-24] MEDS: METOPROLOL SUCC 25MG EXT REL TAB PO SCH ×2 (08:47→22:02)
[2019-09-24 08:52] LABS: Calcium 8.8 mg/dl (8.5-10.1); Creatinine Clr Calc Pharmacy 137.1 ml/min; Est GFR (African American) 116.4; Est GFR (Non-African American) 100.4
[2019-09-24] MEDS: INSULIN ASPART 100 UNITS/ML 3 ML PEN SC SCH ×2 (08:54→23:23)
[2019-09-24] MEDS: levETIRAcetam 500 MG TAB PO SCH ×2 (08:54→20:55)
--- NOTE | 2019-09-24 09:54 | Cardiology Progress Note ---
Date of Service September 24, 2019 Assessment & Plan (1) Atrial fibrillation with RVR: Generally controlled on current therapies. We will continue amiodarone 200 mg 4 times per day until discharge then twice daily Increase Toprol to 25 mg twice per day (2) Aortic stenosis, severe: In part likely culprit of gradual decline, outpatient congestive heart failure. Per review of records patient not felt to be an interventional candidate and confirmed Overall prognosis limited (3) Respiratory failure with hypoxia: Acute pulmonary edema as inciting cause suspect gradual onset of heart failure with increasing heart rates followed by tachyarrhythmias leading to further pulmonary edema. Slowly improving without further atrial arrhythmias Will discontinue IV furosemide Begin furosemide 40 mg p.o. twice daily (4) Pulmonary edema: Subjective Patient seen and examined, chart, medications, telemetry reviewed. Patient sitting upright appears more comfortable this morning. Has had some wide-complex rhythms earlier today. No overt complaints Physical Exam Constitutional: no acute distress Neck: + thick neck Respiratory: no respiratory distress Auscultation: + diminished lung sounds Cardiovascular: Rate/Rhythm: + irregularly irregular Heart Sounds: + murmur (3/6 systolic, no diastolic) Extremities: + edema (2+) Gastrointestinal (Abdomen): normal bowel sounds, soft, nontender, no hepatosplenomegaly Results & Data Vital Signs (Past 12 Hours) Vital Signs Temp Pulse Resp BP Pulse Ox 09/24/19 07:28 36.5 C 85 16 106/67 95 09/24/19 02:18 36.7 C 86 19 102/78 97 09/24/19 01:43 36.4 C L 85 17 117/82 95 Laboratory Results Laboratory Results - last 24 hr 09/23/19 09/23/19 09/23/19 11:17 11:27 16:35 WBC RBC Hgb Hct MCV MCH MCHC RDW Std Deviation RDW Coeff of Qing Plt Count MPV APTT PTT Ratio Sodium Potassium Chloride Carbon Dioxide Anion Gap BUN Creatinine Est Cr Clr Drug Dosing Est GFR ( Amer) Est GFR (Non-Af Amer) BUN/Creatinine Ratio Glucose POC Glucose 102 H 104 H Calcium Digoxin 0.5 L 09/23/19 09/24/19 09/24/19 20:37 08:05 08:05 WBC 7.98 RBC 4.61 L Hgb 13.1 L Hct 40.1 L MCV 87.0 MCH 28.4 MCHC 32.7 RDW Std Deviation 41.5 RDW Coeff of Qing 13.1 Plt Count 205 MPV 12.4 H APTT PTT Ratio Sodium 139 Potassium 4.0 Chloride 105 Carbon Dioxide 30 Anion Gap 4.0 BUN 15 Creatinine 0.70 Est Cr Clr Drug Dosing 137.1 Est GFR ( Amer) 116.4 Est GFR (Non-Af Amer) 100.4 BUN/Creatinine Ratio 22.0 H Glucose 100 H POC Glucose 103 H Calcium 8.8 Digoxin 09/24/19 09/24/19 08:05 08:42 WBC RBC Hgb Hct MCV MCH MCHC RDW Std Deviation RDW Coeff of Qing Plt Count MPV APTT 31.5 H PTT Ratio 1.2 Sodium Potassium Chloride Carbon Dioxide Anion Gap BUN Creatinine Est Cr Clr Drug Dosing Est GFR ( Amer) Est GFR (Non-Af Amer) BUN/Creatinine Ratio Glucose POC Glucose 109 H Calcium Digoxin (1) Respiratory failure with hypoxia Chronicity: unspecified Qualified Code(s): J96.91 - Respiratory failure, unspecified with hypoxia
[2019-09-24] MEDS ORDERED: FUROSEMIDE 40 MG TAB PO ONE (10:30)
[2019-09-24] MEDS: METOPROLOL SUCC 25MG EXT REL TAB PO ONE ×2 (11:02→11:58)
--- NOTE | 2019-09-24 14:02 | Hospitalist Progress Note ---
Date of Service September 24, 2019 Assessment & Plan (1) Respiratory failure with hypoxia: Acute hypoxic respiratory failure Secondary to pulmonary edema; aspiration episode Chest x-ray showed pulmonary edema. Continue aspiration precaution Off BiPAP Zosyn discontinued Saturating well with minimal supplemental oxygen (2) Elevated lactic acid level: Serum Lactate: 3.1 >>>1.9 Likely due to Hypoxia Normal Procalcitonin Blood Cx: No growth to date No obvious source of Infection (3) CHF (congestive heart failure): Acute on chronic systolic heart failure Pulmonary Edema Likely due to severe Aortic Stenosis and worsening heart failure ECHO: EF decreased to 20-25% from 45% in Jul 2019 CXR: showed pulmonary edema No LIZBET or ARB due to severe aortic stenosis. Cardiology at [facility]: Patient is not a candidate for intervention for severe aortic stenosis due to her neurocognitive status. Very high risk for complicated valve repair or TAVR IV diuretics transition to p.o: Lasix 40 mg BID Appreciate cardiology input Monitor volume status, I's and O's, daily weight-based Appreciate palliative care Input (4) Atrial fibrillation: Chronic atrial fibrillation with RVR Continue amiodarone, digoxin, apixaban Plan to continue amiodarone 200 mg 4 times daily and transition to twice daily upon discharge Metoprolol increased to 25 mg BID Also on IV Lopressor PRN Appreciate Cardiology Input (5) Aortic stenosis, severe: Severe per echo; unable to determine if aortic valve bicuspid or tricuspid. Reduced LVEF- 45% in July, now 20-25%. Conservative management previously recommended because of traumatic brain injury and ongoing neurocognitive problems. Cardiology at [facility]: Patient is not a candidate for intervention for severe aortic stenosis due to her neurocognitive status. Very high risk for complicated valve repair or TAVR Cardiac prognosis poor without intervention. Continue current medications (6) Elevated troponin level: Troponin levels trended down Likely due to demand ischemia due to tachycardia, CHF, hypoxia. (7) Aspiration into airway: Continue aspiration precautions Speech eval done (8) Hypertension: BP relatively low Monitor BP closely (9) Sleep apnea: Recently diagnosed with sleep apnea Monitor (10) Hyperglycemia: Prediabetes Diet changes (11) Seizure disorder: Continue levetiracetam (12) TBI (traumatic brain injury): S/P closed head injury with intracranial hemorrhage. Ongoing neurocognitive deficits. (13) Do not resuscitate status: Per discussion with family by : Do not attempt resuscitation in event of a cardiopulmonary arrest. Intubation / mechanical ventilation would be appropriate for ventilatory support for reversible disease. (14) DVT prophylaxis: Apixaban (15) Discharge planning issues: Plan to discharge home with home hospice services once medically stable Needs to establish with PCP in the area. Subjective Patient is seen and examined at bedside History is limited secondary to patient's mental status No apparent distress during my exam this morning Noted some wide-complex rhythms, PVCs Patient denies any chest pain, palpitations, shortness of breath Tolerating diet Review of Systems Review of Systems: All systems reviewed & are unremarkable except as noted in HPI & below Physical Exam Physical Exam: Physical Exam: Vitals signs as noted above General Appearance:Obese, no apparent distress Head: normocephalic, Atraumatic Eyes: normal inspection, EOMI Neck: supple, Trachea midline Respiratory/Chest: Decreased breath sounds, CTA Cardiovascular: Irregularly irregular, systolic murmur Abdomen/GI:Soft, Non tender, Bowel sounds present Extremities/Musculoskelatal:normal inspection, B/L LE edema Neurologic/Psych:grossly no focal neurological deficits Skin: normal color, warm Results & Data Vital Signs (Past 12 Hours) Vital Signs Temp Pulse Pulse Resp BP BP Pulse Ox 09/24/19 11:31 92/62 L 09/24/19 11:30 36.4 C L 96 H 16 96/52 L 92 09/24/19 11:00 90 18 75/40 L 88/55 L 95 09/24/19 08:00 83 09/24/19 07:28 36.5 C 85 16 106/67 95 09/24/19 02:18 36.7 C 86 19 102/78 97 Laboratory Results Short CBC 09/24/19 Range/Units 08:05 WBC 7.98 (4.8-10.8) K/uL Hgb 13.1 L (14.0-18.0) g/dL Hct 40.1 L (42-52) % Plt Count 205 (130-400) K/uL BMP 09/24/19 08:05 Sodium 139 Potassium 4.0 Chloride 105 Carbon Dioxide 30 BUN 15 Creatinine 0.70 Glucose 100 H Calcium 8.8 (1) Respiratory failure with hypoxia Chronicity: unspecified Qualified Code(s): J96.91 - Respiratory failure, unspecified with hypoxia (2) CHF (congestive heart failure) Heart failure chronicity: acute Heart failure type: diastolic Qualified Code(s): I50.31 - Acute diastolic (congestive) heart failure
--- NOTE | 2019-09-24 15:50 | Palliative Care Progress Note ---
Date of Service September 24, 2019 Assessment & Plan (1) Palliative care encounter: This is a 63 year old male with a past medical history significant for TBI in November 2018 with SDH and IPH, severe aortic stenosis with a current EF of 20 to 25% who presented to the [facility] from home on 09/20 with nausea, vomiting, and hypoxia as noted by their at home pulse oximetry. He has had a recent inpatient stay at [facility] from 08/04/19-08/06/19 for new onset seizures for which he was started on Levetiracetam. On this admission, he was found to be in a rapid atrial fibrillation and also aspiration was suspected. He has been evaluated by [employer]LE[employer]OCIATE and aspiration precautions are in place. Patient with slow mentation and expressive aphasia-unable to make his own medical decisions. -PAUL Gonzalez met with family on 09/23 to discuss options, including returning home with conservative outpatient management and returning home with hospice services. -The family has a very large support not only from a family standpoint, but also friends and a strong kalyn based worship support. -family decided that they would like to continue with current medical treatment over the next few days and once stable, work towards returning home with hospice services. -patient has been downgraded out of ICU on 09/23 -he is currently on p.o. medications except for IV digoxin -Case management following, and will discuss hospice with the family directly, including private duty caregiver roles. -Currently, no symptom management at this time. Overall, his prognosis is poor per Cardiology and the Book Coverer without surgical intervention-patient not deemed a surgical candidate due to severity of TBI and current functional status. -Palliative care will continue to follow to provide support and answer any additional questions. -Would be helpful to have a POLST complete prior to discharge -will plan to co mplete form when family at bedside. -PPS: 30% (2) TBI (traumatic brain injury): (3) Seizure disorder: (4) Aspiration into airway: (5) Atrial fibrillation with RVR: (6) CHF (congestive heart failure): (7) Respiratory failure with hypoxia: Subjective Patient awake and alert, appears comfortable. Denies any distress. No friends or family at bedside. Patient reported family to come visit later this evening after work. Communicate with patient best by asking yes and no questions. Review of Systems Review of Systems: Patient denies fever, chills, chest pain, increased shortness of breath, or abdominal pain Physical Exam Physical Exam: PE: Awake and alert, no acute distress HEENT: EOMI, hearing within normal limits Respiratory: Unlabored, no rhonchi CV: Irregular rhythm Abdomen: Soft, nontender Neuro: Expressive aphasia, + dysarthria Results & Data Vital Signs (Past 12 Hours) Vital Signs Temp Pulse Pulse Resp BP BP Pulse Ox 09/24/19 11:31 92/62 L 09/24/19 11:30 97.5 F L 96 H 16 96/52 L 92 09/24/19 11:00 90 18 75/40 L 88/55 L 95 09/24/19 08:00 83 09/24/19 07:28 97.7 F 85 16 106/67 95 PG Care Time/CCT Total # of Minutes Spent Total Time Spent with Patient: Total time spent is greater than 50% in coordination of care (as documented) at patient's floor/unit and/or counseling patient: (1) CHF (congestive heart failure) Heart failure chronicity: acute Heart failure type: diastolic Qualified Code(s): I50.31 - Acute diastolic (congestive) heart failure (2) Respiratory failure with hypoxia Chronicity: unspecified Qualified Code(s): J96.91 - Respiratory failure, unspecified with hypoxia
[2019-09-24] MEDS: FUROSEMIDE 40 MG TAB PO SCH (18:06)
[2019-09-24] MEDS ORDERED: MAGNESIUM SULFATE / D5W 1 GM/100 ML BAG IV ONE (22:45)
[2019-09-25 07:59] LABS: BUN Creatinine Ratio 23.6 (10-20); Calcium 8.8 mg/dl (8.5-10.1); Est GFR (African American) 109.1; Est GFR (Non-African American) 94.1; Magnesium 2.5 mg/dl (1.8-2.4); Potassium 4.3 mmol/L (3.5-5.1)
[2019-09-25] MEDS: POTASSIUM CHLORIDE PWD 20 MEQ PACK PO SCH (08:19)
[2019-09-25] MEDS: APIXABAN 5 MG TABLET PO SCH (08:19)
[2019-09-25] MEDS: levETIRAcetam 500 MG TAB PO SCH (08:19)
[2019-09-25] MEDS: FUROSEMIDE 40 MG TAB PO SCH ×2 (08:19→16:36)
[2019-09-25] MEDS: METOPROLOL SUCC 25MG EXT REL TAB PO SCH (08:19)
[2019-09-25] MEDS: FAMOTIDINE 20 MG TAB PO SCH (08:19)
[2019-09-25] MEDS: AMIODARONE 200 MG TAB PO SCH ×3 (08:35→16:36)
[2019-09-25] MEDS ORDERED: METOPROLOL SUCC 25MG EXT REL TAB PO SCH (09:00)
--- NOTE | 2019-09-25 11:01 | Cardiology Progress Note ---
Date of Service September 25, 2019 Assessment & Plan (1) Atrial fibrillation with RVR: Generally controlled on current therapies. We will continue amiodarone 200 mg 4 times per day until discharge then twice daily Toprol 25 mg twice per day (2) Aortic stenosis, severe: In part likely culprit of gradual decline, outpatient congestive heart failure. Per review of records patient not felt to be an interventional candidate and confirmed Overall prognosis limited (3) Respiratory failure with hypoxia: Acute pulmonary edema as inciting cause suspect gradual onset of heart failure with increasing heart rates followed by tachyarrhythmias leading to further pulmonary edema. Slowly improving without further significant arrhythmias Furosemide 40 mg p.o. twice daily may ultimately need to reduce dose Add spironolactone 25 mg p.o. daily (4) Pulmonary edema: Clinically improving Subjective Patient seen and examined, chart, medications, telemetry reviewed. No acute issues Telemetry still with complex ventricular ectopy at times though generally controlled Brisk diuresis yesterday Physical Exam Constitutional: no acute distress Neck: + thick neck Respiratory: no respiratory distress Auscultation: + diminished lung sounds Cardiovascular: Rate/Rhythm: + irregularly irregular Heart Sounds: + murmur (3/6 systolic, no diastolic) Extremities: + edema (2+) Gastrointestinal (Abdomen): normal bowel sounds, soft, nontender, no hepatosplenomegaly Results & Data Vital Signs (Past 12 Hours) Vital Signs Temp Pulse Pulse Resp BP Pulse Ox 09/25/19 07:29 36.3 C L 96 H 18 121/93 93 09/25/19 04:26 36.6 C 89 18 106/74 96 09/25/19 01:52 99 H 09/24/19 23:36 36.3 C L 83 18 95/69 L 95 (1) Respiratory failure with hypoxia Chronicity: unspecified Qualified Code(s): J96.91 - Respiratory failure, unspecified with hypoxia
[2019-09-25] MEDS ORDERED: SPIRONOLACTONE 25 MG TAB PO SCH (11:15)
--- NOTE | 2019-09-25 12:26 | Palliative Care Progress Note ---
Date of Service September 25, 2019 Assessment & Plan (1) Palliative care encounter: -Patient has no complaints today. he appears stable and comfortable. He is requiring no symptom management at this tmie. -Plan is for patient to leave today at 1700-- home on hospice. -No family present at bedside today, none present yesterday after either. POLST form was not completed-- will defer to hospice for this. -No further palliative needs at this time. We will sign off. (2) TBI (traumatic brain injury): (3) Seizure disorder: (4) Aspiration into airway: (5) Atrial fibrillation with RVR: (6) CHF (congestive heart failure): (7) Respiratory failure with hypoxia: Subjective Patient awake and alert this morning. He stated, "Over in [place]," when asked where he was. He denies any pain or discomfort. No family at bedside. Review of Systems Review of Systems: Patient denies fever, chills, chest pain, increased shortness of breath, or abdominal pain Physical Exam Constitutional: + ill appearing and cooperative Respiratory: normal respiratory effort, lungs clear to auscultation Cardiovascular: Rate/Rhythm: + irregularly irregular Heart Sounds: + murmur (grade IV/) Extremities: + edema (+1-2 lower extremity ) Gastrointestinal (Abdomen): normal bowel sounds, soft, nontender, no hepatosplenomegaly Neurologic: awake Psychiatric: Orientation: alert and oriented to person; + not oriented to place and + not oriented to time Results & Data Vital Signs (Past 12 Hours) Vital Signs Temp Pulse Pulse Resp BP BP Pulse Ox 09/25/19 11:07 36.6 C 70 16 120/88 96 09/25/19 08:00 76 09/25/19 07:29 36.3 C L 96 H 18 121/93 93 09/25/19 04:26 36.6 C 89 18 106/74 96 09/25/19 01:52 99 H Time Spent Midlevel 25 minutes with >50% of the time spent at bedside with patient and IDT discussing plan and coordinating care. (1) CHF (congestive heart failure) Heart failure chronicity: acute Heart failure type: diastolic Qualified Code(s): I50.31 - Acute diastolic (congestive) heart failure (2) Respiratory failure with hypoxia Chronicity: unspecified Qualified Code(s): J96.91 - Respiratory failure, unspecified with hypoxia
--- NOTE | 2019-09-25 13:54 | Hospitalist Progress Note ---
Date of Service September 25, 2019 Assessment & Plan (1) Respiratory failure with hypoxia: Acute hypoxic respiratory failure Secondary to pulmonary edema; aspiration episode Chest x-ray showed pulmonary edema. Continue aspiration precaution Off BiPAP, off supplemental oxygen Zosyn discontinued Saturating well on room air (2) Elevated lactic acid level: Serum Lactate: 3.1 >>>1.9 Likely due to Hypoxia Normal Procalcitonin Blood Cx: No growth to date No obvious source of Infection (3) CHF (congestive heart failure): Acute on chronic systolic heart failure Pulmonary Edema Likely due to severe Aortic Stenosis and worsening heart failure ECHO: EF decreased to 20-25% from 45% in Jul 2019 CXR: showed pulmonary edema No LIZBET or ARB due to severe aortic stenosis. Cardiology at [facility]: Patient is not a candidate for intervention for severe aortic stenosis due to her neurocognitive status. Very high risk for complicated valve repair or TAVR IV diuretics transition to p.o: Lasix 40 mg BID>> plan to discharge on 40 mg daily Added Aldactone 25 mg daily Appreciate cardiology input Monitor volume status, I's and O's, daily weight-based Appreciate palliative care Input (4) Atrial fibrillation: Chronic atrial fibrillation with RVR Continue amiodarone, digoxin, apixaban Plan to continue amiodarone 200 mg 4 times daily and transition to 200 mg BID upon discharge Metoprolol increased to 25 mg BID Also on IV Lopressor PRN Appreciate Cardiology Input (5) Aortic stenosis, severe: Severe per echo; unable to determine if aortic valve bicuspid or tricuspid. Reduced LVEF- 45% in July, now 20-25%. Conservative management previously recommended because of traumatic brain injury and ongoing neurocognitive problems. Cardiology at [facility]: Patient is not a candidate for intervention for severe aortic stenosis due to her neurocognitive status. Very high risk for complicated valve repair or TAVR Cardiac prognosis poor without intervention. Continue current medications (6) Elevated troponin level: Troponin levels trended down Likely due to demand ischemia due to tachycardia, CHF, hypoxia. (7) Aspiration into airway: Continue aspiration precautions Speech eval done (8) Hypertension: BP better monitor (9) Sleep apnea: Recently diagnosed with sleep apnea Monitor (10) Hyperglycemia: Prediabetes Diet changes (11) Seizure disorder: Continue levetiracetam (12) TBI (traumatic brain injury): S/P closed head injury with intracranial hemorrhage. Ongoing neurocognitive deficits. (13) Do not resuscitate status: Per discussion with family by : Do not attempt resuscitation in event of a cardiopulmonary arrest. Intubation / mechanical ventilation would be appropriate for ventilatory support for reversible disease. (14) DVT prophylaxis: Apixaban (15) Discharge planning issues: Plan to discharge home with home hospice services today Subjective Patient is seen and examined at bedside Laying in bed comfortably during my encounter History is limited secondary to patient's mental status Discussed with cardiology today Aldactone added for better diuresis Patient denies any chest pain, palpitations, shortness of breath Plan to be discharged home today Review of Systems Review of Systems: All systems reviewed & are unremarkable except as noted in HPI & below Physical Exam Physical Exam: Physical Exam: Vitals signs as noted above General Appearance:Obese, no apparent distress Head: normocephalic, Atraumatic Eyes: normal inspection, EOMI Neck: supple, Trachea midline Respiratory/Chest: Decreased breath sounds, CTA Cardiovascular: Irregularly irregular, systolic murmur Abdomen/GI:Soft, Non tender, Bowel sounds present Extremities/Musculoskelatal:normal inspection, B/L LE edema Neurologic/Psych:grossly no focal neurological deficits Skin: normal color, warm Results & Data Vital Signs (Past 12 Hours) Vital Signs Temp Pulse Pulse Resp BP BP Pulse Ox 09/25/19 11:07 36.6 C 70 16 120/88 96 09/25/19 08:00 76 09/25/19 07:29 36.3 C L 96 H 18 121/93 93 09/25/19 04:26 36.6 C 89 18 106/74 96 09/25/19 01:52 99 H Laboratory Results [facility] 09/25/19 07:13 Sodium 137 Potassium 4.3 Chloride 105 Carbon Dioxide 28 BUN 19 H Creatinine 0.82 Glucose 100 H Calcium 8.8 (1) Respiratory failure with hypoxia Chronicity: unspecified Qualified Code(s): J96.91 - Respiratory failure, unspecified with hypoxia (2) CHF (congestive heart failure) Heart failure chronicity: acute Heart failure type: diastolic Qualified Code(s): I50.31 - Acute diastolic (congestive) heart failure
--- NOTE | 2019-09-25 14:08 | Discharge Summary ---
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 At baseline, patient is minimally verbal, requires total care and ambulates as a 1 assist. Recently moved to [place] from [place], [place] 1.5 weeks ago. History obtained from POA son-in-law at bedside. Patient developed cold symptoms 2 days ago with nasal congestion and cough but still seemed to be breathing normally, per family. Yesterday, was noted to be weaker on transfers and had a hypoxic episode when he was being transferred to shower. Also developed some rigidity at this time which raised concern for seizure but only lasted for a few seconds. Overnight, patient had difficulty sleeping and had a few bouts of emesis. Did complain of pain to his son-in-law at some point initially pointing to his abdomen and then his lower sternum. Has been using 2L [place] oxygen at night. Patient was recently admitted to our service in late July after witnessed seizure and was started on Keppra 500 mg BID. During admission, was also found to have hypoxic respiratory failure in the setting of pulmonary edema which resolved without diuresis. Also had initial wide complex tachycardia in setting of seizure but telemetry during remainder of admission revealed A Fib. TTE from Nov 2018 with severe aortic stenosis, LVEF around 45%. Conservative management of valvular disease was recommended at that time due to recent neurologic issues. Since discharge home, patient has undergone outpatient sleep study for possible sleep apnea but CPAP device has not arrived yet. Patient initially presented with wide-complex tachycardia with heart rate in the 190s that is improved to 137 on IV amiodarone. Initially tachypneic at 38 which is improved to 28 on BiPAP, on which he is saturating at 96%. Temperature 37.6 C. CXR with cardiomegaly with volume overload and congestive change as well as dense infiltrates in the mid to lower lungs greater on the right. Has leukocytosis of 18.99, serum lactate of 3.1, mild troponin elevation of 0.115, elevated BNP of 19,185, normal procalcitonin at 0.09, influenza PCR A and B pending. Patient was given 20 mg of IV Lasix for diuresis as well as started on empiric antibiotics Zosyn and vancomycin. Admission Exam Per Admitting Provider General Appearance: WD/WN, vitals as above, NAD, appears acutely ill, alert and able to answer some questions with yes/no, wearing bipap mask Head: normocephalic, atraumatic Eyes: normal inspection, PERRL, conjunctivae normal, anicteric sclerae ENT: external ear and nose normal, wearing bipap mask Neck: trachea midline, no thyromegaly, normal visual inspection Respiratory: tachypneic, coarse breath sounds throughout with bibasilar rales, no wheeze or rhonchi. No accessory muscle use Cardiovascular: tachycardic, irregular rhythm, no murmur appreciated, normal peripheral pulses, trace BLE edema Chest: normal inspection of chest, no pain on palpation of chest wall Abdomen/GI: normal bowel sounds, soft, mildly distended, nontender, no hepatosplenomegaly Extremities/Musculoskelatal: no cyanosis or clubbing, extremities motor strength 5/5 Neurologic: PERRL, EOMI, accommodation nl, no face palsy, no dysarthria, CN's II-XI intact bilaterally and moves all extremities Psychiatric: Alert, not oriented Skin: no rashes, normal color, warm/dry Principal Diagnosis Acute hypoxic respiratory failure Acute on chronic systolic heart failure Atrial fibrillation with RVR Severe aortic stenosis Discharge Data Allergies Allergy/AdvReac Type Severity Reaction Status Date / Time No Known Allergies Allergy Unverified 08/04/19 03:44 Consultations 09/20/19 14:56 ED Decision to Admit Stat 09/20/19 15:40 Consult Equipment Manager Routine 09/20/19 15:42 Consult Cardiology Routine 09/20/19 16:42 Consult Case Management - Discharge Planning Routine 09/20/19 17:39 Consult Case Management - Discharge Planning Routine 09/23/19 10:02 Consult Palliative Care Routine Procedures Performed CXR: 1. Cardiomegaly with volume overload and congestive change. 2. Dense infiltrates in the mid to lower lungs greater on the right. This could represent asymmetric pulmonary edema versus multifocal pneumonia. 3. Small right pleural effusion. Hospital Course (1) Respiratory failure with hypoxia: Acute hypoxic respiratory failure Secondary to pulmonary edema; aspiration episode Chest x-ray showed pulmonary edema. Continue aspiration precaution Off BiPAP, off supplemental oxygen Zosyn discontinued Saturating well on room air (2) Elevated lactic acid level: Serum Lactate: 3.1 >>>1.9 Likely due to Hypoxia Normal Procalcitonin Blood Cx: No growth to date No obvious source of Infection (3) CHF (congestive heart failure): Acute on chronic systolic heart failure Pulmonary Edema Likely due to severe Aortic Stenosis and worsening heart failure ECHO: EF decreased to 20-25% from 45% in Jul 2019 CXR: showed pulmonary edema No LIZBET or ARB due to severe aortic stenosis. Cardiology at [facility]: Patient is not a candidate for intervention for severe aortic stenosis due to her neurocognitive status. Very high risk for complicated valve repair or TAVR IV diuretics transition to p.o: Lasix 40 mg BID>> plan to discharge on 40 mg daily Added Aldactone 25 mg daily Appreciate cardiology input Monitor volume status, I's and O's, daily weight-based Appreciate palliative care Input (4) Atrial fibrillation: Chronic atrial fibrillation with RVR Continue amiodarone, digoxin, apixaban Plan to continue amiodarone 200 mg 4 times daily and transition to 200 mg BID upon discharge Metoprolol increased to 25 mg BID Also on IV Lopressor PRN Appreciate Cardiology Input (5) Aortic stenosis, severe: Severe per echo; unable to determine if aortic valve bicuspid or tricuspid. Reduced LVEF- 45% in July, now 20-25%. Conservative management previously recommended because of traumatic brain injury and ongoing neurocognitive problems. Cardiology at [facility]: Patient is not a candidate for intervention for severe aortic stenosis due to her neurocognitive status. Very high risk for complicated valve repair or TAVR Cardiac prognosis poor without intervention. Continue current medications (6) Elevated troponin level: Troponin levels trended down Likely due to demand ischemia due to tachycardia, CHF, hypoxia. (7) Aspiration into airway: Continue aspiration precautions Speech eval done (8) Hypertension: BP better monitor (9) Sleep apnea: Recently diagnosed with sleep apnea Monitor (10) Hyperglycemia: Prediabetes Diet changes (11) Seizure disorder: Continue levetiracetam (12) TBI (traumatic brain injury): S/P closed head injury with intracranial hemorrhage. Ongoing neurocognitive deficits. (13) Do not resuscitate status: Per discussion with family by : Do not attempt resuscitation in event of a cardiopulmonary arrest. Intubation / mechanical ventilation would be appropriate for ventilatory support for reversible disease. (14) DVT prophylaxis: Apixaban (15) Discharge planning issues: Plan to discharge home with home hospice services today Total Time Total Time Spent Total Time Spent (In Minutes): 39 minutes Total Time Includes: Examination of the Patient, Discharge Planning, Medication Reconciliation, Communication With Other Providers and Other Discharge Plan Discharge Items Patient Disposition: Hospice - Home Reason For Visit: HYPOXIC RESP FAILURE Discharge Diagnosis: Acute hypoxic respiratory failure Acute on chronic systolic heart failure Atrial fibrillation with RVR Severe aortic stenosis Activity: Per Instructions section Exercise/Sports: Gradually increase as tolerated Non-emergency contact: Primary Care Provider and Lamp Shades Supervisor Call non-emergency contact if: you have any medication questions, your symptoms worsen, your pain is not controlled, your pain is worsening, your pain is unusual for you, your pain is concerning for you and you have a fever Follow-up/Referrals: PCP,NO [Primary Care Provider] - Diet: Heart Healthy Ambulatory Orders: Basic Metabolic Panel (Routine) Timeframe: 1 Week Location: Determined by Patient Ordered By: Deshaun Kenney Attending Provider Instructions: Follow-up with your primary care physician Dr. Dacosta on September 28, 2019 at 10:45 AM Follow-up with your housekeeping laundry worker Dr. Jones in 4-6 weeks Get blood test--(basic metabolic panel) in 1 week and follow up with your physician with results Seek immediate medical attention if your symptoms reoccur or worsen Call your Primary Care doctor if any of the following symptoms or problems start or get worse: * Shortness of breath or difficulty breathing * Wake up at night short of breath * Chest pain * Cough * Swelling of your hands, feet, or legs * More fatigued or tired with your normal activity * Palpitations - sudden fast heart beats WEIGHT * Weigh yourself every morning after using the bathroom. * Use the same scale. * Wear the same amount of clothing. * Write your weight down on a chart. * Call your Primary Care doctor if you gain more than 2-3 pounds in 1-2 days. MEDICATIONS * Use this discharge instruction sheet for medication instructions. * Take your medications at the time your doctor ordered. * Do not skip a dose of your medicines. * If you miss a dose of medicine, take it as soon as possible, but DO NOT DOUBLE A DOSE. * Read your medicine information when you get home. * Know all of the side effects of your medicine. If in doubt, ask your pharmacist * Call your Primary Care doctor's office if you have any side effects. * Be sure all of your doctors know what medicine and herbs you take (including cold, flu, and herbal medicine). Take the following with you to your follow-up doctor appointments: * Weight Chart * Medication List * List of questions Do not drink excessive alcohol, beer or wine. Pending Studies at Discharge: No Stand-Alone Forms: My [facility] Medications and DC Order Prescriptions: New furosemide 40 mg Tablet 40 mg PO DAILY Qty: 30 RF: 0 amiodarone 200 mg Tablet 200 mg PO BID Qty: 60 RF: 0 spironolactone 25 mg Tablet 25 mg PO QAM Qty: 30 RF: 0 metoprolol succinate 25 mg Tablet Extended Release 24 Hr 25 mg PO BID Qty: 60 RF: 0 Continued Eliquis 5 mg Tablet 5 mg PO BID RF: 0 (DME) Oxygen Home Liters Per Minute See Dose Instructions .ROUTE .MEDSUPPLY Qty: 1 RF: 0 levetiracetam 500 mg tablet 500 mg PO BID Qty: 60 RF: 5 Discontinued amlodipine 5 mg Tablet 5 mg PO DAILY RF: 0 metoprolol tartrate 25 mg Tablet 12.5 mg PO BID Qty: 30 RF: 5 Discharge Orders: Discharge Order (Routine); Ordered 09/25/19 Ordered By: Deshaun Fink Admission Data Admit Date/Time: 09/20/19 15:39 Attending Provider: Deshaun Fink Admit Provider: David Lemus Primary Care Provider: PCP,NO Other Providers: [facility],Home Healthcare ; David Lemus ; Ortiz Abbott Sheldon D ; Ly Benton Other Interventions: Discharge Summary Assessment (RN) Last Done: 09/25/19 16:59 DC Date/Time DO NOT enter until pt leaves facility: 09/25/19 18:10
== END 2019-09-25 18:10 | disposition hospice, home (50) | DRG 189 ==
LOC: ED 13:42 → 1E 15:39 → SUATTDRO 15:39 → 1E 16:47 → 2N 09-23 13:06